=== PATIENT | male | born 2000 | race Caucasian/White ===

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

== ENCOUNTER 2019-05-30 22:46 | Emergency (ER) | payer OTHER ==
[2019-05-30 23:01] VITALS: RESP 18
[2019-05-31] MEDS ORDERED: DIPH,PERTUS(ACELL)TETVAC-LF 0.5 ML VIAL IM ONE (00:05)
--- NOTE | 2019-05-31 00:09 | ED ---
General Adult HPI - General Chief complaint: Burn/Smoke Inhalation Stated complaint: Grease Burn on hand a few days ago Time Seen by Provider: 05/30/19 23:57 Source: patient Mode of arrival: ambulatory Limitations: no limitations - History of Present Illness Initial comments: Dictation was produced using [employer] dictation software. please excuse any grammatical, word or spelling errors. Chief Complaint: 18-year-old male presents with grease burn to the left upper extremity History of Present Illness: Patient is a 18-year-old male presents with grease allen to the left upper extremity. Patient states that yesterday he was cooking pork chop when some of the oil splashed onto his left upper extremity. Patient states that today he felt like his symptoms were getting worse he is worried about an infection putting into the come to the emergency department. Patient does not know when his last tetanus was. He reports that this pain is controlled. The ROS documented in this emergency department record has been reviewed and confirmed by me. Those systems with pertinent positive or negative responses have been documented in the HPI. All other systems are other negative and/or noncontributory. PHYSICAL EXAM: General Impression: Alert and oriented x3, not in acute distress HEENT: Normocephalic atraumatic, extra-ocular movements intact, pupils equal and reactive to light bilaterally, mucous membranes moist. Cardiovascular: Heart regular rate and rhythm, S1&S2 audible, no murmurs, rubs or gallops Chest: Lungs clear to auscultation bilaterally, no rhonchi, no wheeze, no rales Abdomen: Bowel sounds present, abdomen soft, non-tender, non-distended, no organomegaly Musculoskeletal: Pulses present and equal in all extremities, no peripheral edema Motor: no focal deficits noted Neurological: CN II-XII grossly intact, no focal motor or sensory deficits noted Skin: 7-8 Small 1 x 1 cm grease allen spread out over the left lateral forearm. These allen are small first and second-degree allen. Psych: Normal affect and mood ED course: 18 Old male presents with grease allen to the forearm of the left upp er extremity. Vital signs upon arrival are within acceptable limits. Burn lesions are not circumferential. They are rather small. Injury occurred yesterday around dinnertime. Patient given motion bandage. He is told to maintain his bandage until tomorrow when he can take it off. Patient's tetanus was updated. Told to follow up with primary care physician upon discharge. - Related Data Previous Rx's Medication Instructions Recorded Naltrexone HCl [Revia] 50 mg PO 2100 30 Days #30 tab 11/30/18 buPROPion XL [Wellbutrin XL] 300 mg PO DAILY 30 Days #30 11/30/18 tab.er.24h traZODone HCL [Desyrel] 100 mg PO HS 30 Days #30 tab 11/30/18 Allergies Allergy/AdvReac Type Severity Reaction Status Date / Time No Known Allergies Allergy Verified 05/30/19 23:01 Review of Systems ROS Statement: Those systems with pertinent positive or pertinent negative responses have been documented in the HPI. ROS Other: All systems not noted in ROS Statement are negative. Past Medical History Past Medical History: No Reported History History of Any Multi-Drug Resistant Organisms: None Reported Past Surgical History: No Surgical Hx Reported Past Psychological History: Bipolar, Depression Smoking Status: Former smoker Past Alcohol Use History: None Reported Past Drug Use History: Marijuana General Exam Limitations: no limitations Course Vital Signs 05/30/19 22:58 Temperature 98.6 F Pulse Rate 72 Respiratory 18 Rate Blood Pressure 105/61 O2 Sat by Pulse 99 Oximetry Disposition Clinical Impression: Burn Disposition: HOME SELF-CARE Condition: Good Instructions (If sedation given, give patient instructions): Superficial Burn (ED) Is patient prescribed a controlled substance at d/c from ED?: No Referrals: Vincent Montaño MD [REFERRING] - 1-2 days Time of Disposition: 00:08
[2019-05-31 00:29] VITALS: BP 100/61; PULSE 70; TEMP 98.2
== END 2019-05-31 00:27 | disposition home or self-care (01) ==
LOC: EC 22:46
DX: T22.212A Burn of second degree of left forearm, initial encounter (principal); T31.0 Burns involving less than 10% of body surface; Z23 Encounter for immunization; Z87.891 Personal history of nicotine dependence; X10.2XXA Contact with fats and cooking oils, initial encounter; Y93.G3 Activity, cooking and baking
CPT/HCPCS: 90471; 90715; 99283

== ENCOUNTER 2022-06-23 20:23 | Inpatient (IN) | payer MEDICAID, OTHER ==
--- NOTE | 2022-06-23 20:33 | ED ---
Psych HPI - General Chief Complaint: Psychiatric Symptoms Stated Complaint: mental health Time Seen by Provider: 06/23/22 20:24 Source: patient, RN notes reviewed Mode of arrival: EMS - History of Present Illness Initial Comments: This is a pleasant 21-year-old male who just got out of [facility] today. Patient states while in [facility] he was diagnosed with schizophrenia. Patient apparently saw the [facility] provider. Patient also had a mental health evaluation and was prescribed Zyprexa, Zoloft, and lithium. Patient also states he takes something else for anxiety but cannot recall what it is. Patient states that he continues to hear voices, some of which are telling him to hurt himself. Patient denying any homicidality. [place] any recent illness. No other health problems. No headache, no fever or chills, no changes in vision or hearing, no sore throat or difficulty with speech, no neck pain, no chest pain or shortness of breath, no abdominal pain, no nausea or vomiting, no changes in urination or bowel movements, no numbness or tingling, no extremity pain, no skin rashes or lesions. Past medical, surgical, social, and family history reviewed. MD Complaint: suicidal ideation - Related Data Previous Rx's Medication Instructions Recorded Naltrexone HCl [Revia] 50 mg PO 2100 30 Days #30 tab 11/30/18 buPROPion XL [Wellbutrin XL] 300 mg PO DAILY 30 Days #30 11/30/18 tab.er.24h traZODone HCL [Desyrel] 100 mg PO HS 30 Days #30 tab 11/30/18 Allergies Allergy/AdvReac Type Severity Reaction Status Date / Time No Known Allergies Allergy Verified 05/30/19 23:01 Review of Systems ROS Statement: Those systems with pertinent positive or pertinent negative responses have been documented in the HPI. ROS Other: All systems not noted in ROS Statement are negative. Past Medical History Past Medical History: No Reported History History of Any Multi-Drug Resistant Organisms: None Reported Past Surgical History: No Surgical Hx Reported Past Psychological History: Bipolar, Depression Past Alcohol Use History: None Reported Past Drug Use History: Marijuana General Exam - General Exam Comments Initial Comments: Healthy-appearing 21-year-old male in no significant distress. Vital signs reviewed, patient appears to be healthy and nontoxic. Cranial nerves II through XII grossly intact. Alert and oriented 4. Limitations: no limitations General appearance: alert, in no apparent distress Head exam: Present: atraumatic, normocephalic, normal inspection Eye exam: Present: normal appearance, PERRL, EOMI. Absent: scleral icterus, conjunctival injection, periorbital swelling ENT exam: Present: normal exam, mucous membranes moist Neck exam: Present: normal inspection. Absent: tenderness, meningismus, lymphadenopathy Respiratory exam: Present: normal lung sounds bilaterally. Absent: respiratory distress, wheezes, rales, rhonchi, stridor Cardiovascular Exam: Present: regular rate, normal rhythm, normal heart sounds. Absent: systolic murmur, diastolic murmur, rubs, gallop, clicks GI/Abdominal exam: Present: soft, normal bowel sounds. Absent: distended, tenderness, guarding, rebound, rigid Extremities exam: Present: normal inspection, full ROM, normal capillary refill. Absent: tenderness, pedal edema, joint swelling, calf tenderness Back exam: Present: normal inspection Neurological exam: Present: alert, oriented X3, CN II-XII intact Psychiatric exam: Present: normal affect, normal mood Skin exam: Present: warm, dry, intact, normal color. Absent: rash Course Vital Signs 06/23/22 20:26 Temperature 98.6 F Pulse Rate 74 Respiratory 18 Rate Blood Pressure 146/90 O2 Sat by Pulse 98 Oximetry - Reevaluation(s) Reevaluation #1: 06/24/22 00:35 Medical record is reviewed Symptoms unchanged Patient is informed of results and questions answered Patient in no distress Medical Decision Making - Medical Decision Making Will initiate mental health evaluation for auditory hallucinations. Suicidal ideation. We'll obtain baseline laboratory work as well as renal function since the patient's lithium. Patient admitted for further psychiatric evaluation and treatment - Lab Data Result diagrams: 06/23/22 20:54 06/23/22 20:54 Lab Results 06/23/22 06/23/22 06/23/22 Range/Units 20:54 20:54 20:54 WBC 8.1 (3.8-10.6) k/uL RBC 4.54 (4.30-5.90) m/uL Hgb 13.2 (13.0-17.5) gm/dL Hct 38.6 L (39.0-53.0) % MCV 85.0 (80.0-100.0) fL MCH 29.2 (25.0-35.0) pg MCHC 34.3 (31.0-37.0) g/dL RDW 12.7 (11.5-15.5) % Plt Count 218 (150-450) k/uL MPV 8.7 Sodium 142 (137-145) mmol/L Potassium 4.6 (3.5-5.1) mmol/L Chloride 102 (98-107) mmol/L Carbon Dioxide 27 (22-30) mmol/L Anion Gap 13 mmol/L BUN 16 (9-20) mg/dL Creatinine 0.95 (0.66-1.25) mg/dL Est GFR (CKD-EPI)AfAm >90 (>60 ml/min/1.73 sqM) Est GFR (CKD-EPI)NonAf >90 (>60 ml/min/1.73 sqM) Glucose 100 H (74-99) mg/dL Calcium 9.4 (8.4-10.2) mg/dL Total Bilirubin 0.2 (0.2-1.3) mg/dL AST 25 (17-59) U/L ALT 25 (4-49) U/L Alkaline Phosphatase 93 (38-126) U/L Total Protein 7.1 (6.3-8.2) g/dL Albumin 4.5 (3.5-5.0) g/dL Urine Color Urine Appearance (Clear) Urine pH (5.0-8.0) Ur Specific [place] (1.001-1.035) Urine Protein (Negative) Urine Glucose (UA) (Negative) Urine Ketones (Negative) Urine Blood (Negative) Urine Nitrite (Negative) Urine Bilirubin (Negative) Urine Urobilinogen (<2.0) mg/dL Ur Leukocyte Esterase (Negative) Urine Opiates Screen Not Detected (NotDetected) Ur Oxycodone Screen Not Detected (NotDetected) Urine Methadone Screen Not Detected (NotDetected) Ur Propoxyphene Screen Not Detected (NotDetected) Ur Barbiturates Screen Not Detected (NotDetected) U Tricyclic Antidepress Not Detected (NotDetected) Ur Phencyclidine Scrn Not Detected (NotDetected) Ur Amphetamines Screen Not Detected (NotDetected) U Methamphetamines Scrn Not Detected (NotDetected) U Benzodiazepines Scrn Not Detected (NotDetected) [place] <0.2 mmol/L Urine Cocaine Screen Not Detected (NotDetected) U Marijuana (THC) Screen Not Detected (NotDetected) 06/23/22 Range/Units 20:54 WBC (3.8-10.6) k/uL RBC (4.30-5.90) m/uL Hgb (13.0-17.5) gm/dL Hct (39.0-53.0) % MCV (80.0-100.0) fL MCH (25.0-35.0) pg MCHC (31.0-37.0) g/dL RDW (11.5-15.5) % Plt Count (150-450) k/uL MPV Sodium (137-145) mmol/L Potassium (3.5-5.1) mmol/L Chloride (98-107) mmol/L Carbon Dioxide (22-30) mmol/L Anion Gap mmol/L BUN (9-20) mg/dL Creatinine (0.66-1.25) mg/dL Est GFR (CKD-EPI)AfAm (>60 ml/min/1.73 sqM) Est GFR (CKD-EPI)NonAf (>60 ml/min/1.73 sqM) Glucose (74-99) mg/dL Calcium (8.4-10.2) mg/dL Total Bilirubin (0.2-1.3) mg/dL AST (17-59) U/L ALT (4-49) U/L Alkaline Phosphatase (38-126) U/L Total Protein (6.3-8.2) g/dL Albumin (3.5-5.0) g/dL Urine Color Yellow Urine Appearance Clear (Clear) Urine pH 5.5 (5.0-8.0) Ur Specific [place] 1.022 (1.001-1.035) Urine Protein Negative (Negative) Urine Glucose (UA) Negative (Negative) Urine Ketones Negative (Negative) Urine Blood Negative (Negative) Urine Nitrite Negative (Negative) Urine Bilirubin Negative (Negative) Urine Urobilinogen <2.0 (<2.0) mg/dL Ur Leukocyte Esterase Negative (Negative) Urine Opiates Screen (NotDetected) Ur Oxycodone Screen (NotDetected) Urine Methadone Screen (NotDetected) Ur Propoxyphene Screen (NotDetected) Ur Barbiturates Screen (NotDetected) U Tricyclic Antidepress (NotDetected) Ur Phencyclidine Scrn (NotDetected) Ur Amphetamines Screen (NotDetected) U Methamphetamines Scrn (NotDetected) U Benzodiazepines Scrn (NotDetected) [place] mmol/L Urine Cocaine Screen (NotDetected) U Marijuana (THC) Screen (NotDetected) Disposition Clinical Impression: Depression, Suicidal ideation, Auditory hallucinations, Psychosis Disposition: ADMITTED IP TO THIS [facility] Condition: Stable Is patient prescribed a controlled substance at d/c from ED?: No Referrals: None,Stated [Primary Care Provider] - 1-2 days Time of Disposition: 00:36 Decision to Admit Reason: Admit from EC Decision Time: 00:36
[2022-06-23 21:10] LABS: Appearance,Urine Clear (Clear); Bilirubin,Urine Negative (Negative); Blood,Urine Negative (Negative); Color,Urine Yellow; Glucose,Urine (UA) Negative (Negative); Ketones,Urine Negative (Negative); Leukocyte Esterase,Urine Negative (Negative); Nitrite,Urine Negative (Negative); PH, Urine 5.5 (5.0-8.0); Protein,Urine Negative (Negative); Specific Gravity,Urine 1.022 (1.001-1.035); Urobilinogen,Urine <2.0 mg/dL (<2.0)
[2022-06-23 21:16] LABS: HCT 38.6 % (39.0-53.0); HGB 13.2 gm/dL (13.0-17.5); MCH 29.2 pg (25.0-35.0); MCHC 34.3 g/dL (31.0-37.0); Mean Platelet Volume 8.7; Platelet Count 218 k/uL (150-450); RBC 4.54 m/uL (4.30-5.90); RDW 12.7 % (11.5-15.5); WBC 8.1 k/uL (3.8-10.6)
[2022-06-23 21:20] LABS: ALT 25 U/L (4-49); AST 25 U/L (17-59); African American GFR (CKD) >90 (>60 ml/min/1.73 sqM); Albumin 4.5 g/dL (3.5-5.0); Alkaline Phosphatase 93 U/L (38-126); Amphetamine Screen,Urine Not Detected (NotDetected); Anion Gap 13 mmol/L; Barbiturate Screen,Urine Not Detected (NotDetected); Benzodiazepines Screen,Urine Not Detected (NotDetected); Blood Urea Nitrogen 16 mg/dL (9-20); Calcium 9.4 mg/dL (8.4-10.2); Carbon Dioxide 27 mmol/L (22-30); Chloride 102 mmol/L (98-107); Cocaine Screen,Urine Not Detected (NotDetected); Glucose 100 mg/dL (74-99); Lithium <0.2 mmol/L; Methadone Screen, Urine Not Detected (NotDetected); Non-African American GFR(CKD) >90 (>60 ml/min/1.73 sqM); Opiate Screen,Urine Not Detected (NotDetected); Oxycodone Screen, Urine Not Detected (NotDetected); Phencyclidine Screen,Urine Not Detected (NotDetected); Potassium 4.6 mmol/L (3.5-5.1); Sodium 142 mmol/L (137-145); Total Bilirubin 0.2 mg/dL (0.2-1.3); Total Protein 7.1 g/dL (6.3-8.2); Tricyclic Antidepressant,Urine Not Detected (NotDetected); Urn Cannabinoid Scrn Not Detected (NotDetected)
[2022-06-24] MEDS ORDERED: MAG HYDROX/AL HYDROX/SIMETH 30 ML CUP PO PRN (01:12)
[2022-06-24] MEDS ORDERED: HALOPERIDOL LACTATE 5 MG/ML 1 ML VIAL IM PRN (01:12)
[2022-06-24] MEDS ORDERED: MAGNESIUM HYDROXIDE 2,400 MG/10 ML CUP PO PRN (01:12)
[2022-06-24] MEDS ORDERED: haloperidoL 5 MG TAB PO PRN (01:19)
[2022-06-24] MEDS ORDERED: LORazepam 1 MG TAB PO PRN (01:20)
[2022-06-24] MEDS ORDERED: LORazepam 1 MG/0.5 ML VIAL IM PRN (01:20)
[2022-06-24 07:26] LABS: ALT 23 U/L (4-49); AST 25 U/L (17-59); Alkaline Phosphatase 76 U/L (38-126); Bilirubin, Delta 0.3 mg/dL (0.0-0.2); Bilirubin,Unconjugated 0.1 mg/dL (0.0-1.1); Total Bilirubin 0.4 mg/dL (0.2-1.3); Total Protein 6.3 g/dL (6.3-8.2)
[2022-06-24] MEDS: NICOTINE 14MG/24HR PATCH TRANSDERM SCH (09:29)
[2022-06-24] MEDS ORDERED: FLUoxetine HCL 10 MG CAP PO STA (09:47)
[2022-06-24] MEDS ORDERED: DOCUSATE 100 MG CAP PO STA (09:48)
--- NOTE | 2022-06-24 10:29 | P.HP ---
Psychiatric H&P - . H&P Date: 06/24/22 History & Physical: Allergies Allergy/AdvReac Type Severity Reaction Status Date / Time No Known Allergies Allergy Verified 06/24/22 01:59 Vital Signs Temp 97.5 F L 06/24/22 02:11 Pulse 78 06/24/22 02:11 Resp 18 06/24/22 02:11 BP 141/85 06/24/22 02:11 Pulse Ox 96 06/24/22 02:11 FiO2 Intake & Output 06/23/22 06/24/22 06/24/22 18:59 06:59 18:59 Weight 88.7 kg Laboratory Last Values WBC 8.1 k/uL (3.8-10.6) 06/23/22 20:54 RBC 4.54 m/uL (4.30-5.90) 06/23/22 20:54 Hgb 13.2 gm/dL (13.0-17.5) 06/23/22 20:54 Hct 38.6 % (39.0-53.0) L 06/23/22 20:54 MCV 85.0 fL (80.0-100.0) 06/23/22 20:54 MCH 29.2 pg (25.0-35.0) 06/23/22 20:54 MCHC 34.3 g/dL (31.0-37.0) 06/23/22 20:54 RDW 12.7 % (11.5-15.5) 06/23/22 20:54 Plt Count 218 k/uL (150-450) 06/23/22 20:54 MPV 8.7 06/23/22 20:54 Sodium 142 mmol/L (137-145) 06/23/22 20:54 Potassium 4.6 mmol/L (3.5-5.1) 06/23/22 20:54 Chloride 102 mmol/L (98-107) 06/23/22 20:54 Carbon Dioxide 27 mmol/L (22-30) 06/23/22 20:54 Anion Gap 13 mmol/L 06/23/22 20:54 BUN 16 mg/dL (9-20) 06/23/22 20:54 Creatinine 0.95 mg/dL (0.66-1.25) 06/23/22 20:54 Est GFR (CKD-EPI)AfAm >90 (>60 ml/min/1.73 sqM) 06/23/22 20:54 Est GFR (CKD-EPI)NonAf >90 (>60 ml/min/1.73 sqM) 06/23/22 20:54 Glucose 100 mg/dL (74-99) H 06/23/22 20:54 Calcium 9.4 mg/dL (8.4-10.2) 06/23/22 20:54 Total Bilirubin 0.4 mg/dL (0.2-1.3) 06/24/22 06:22 Conjugated Bilirubin 0.0 mg/dL (0.0-0.3) 06/24/22 06:22 Unconjugated Bilirubin 0.1 mg/dL (0.0-1.1) 06/24/22 06:22 Delta Bilirubin 0.3 mg/dL (0.0-0.2) H 06/24/22 06:22 AST 25 U/L (17-59) 06/24/22 06:22 ALT 23 U/L (4-49) 06/24/22 06:22 Alkaline Phosphatase 76 U/L (38-126) 06/24/22 06:22 Total Protein 6.3 g/dL (6.3-8.2) 06/24/22 06:22 Albumin 4.0 g/dL (3.5-5.0) 06/24/22 06:22 TSH 4.110 mIU/L (0.465-4.680) 06/24/22 06:22 Urine Color Yellow 06/23/22 20:54 Urine Appearance Clear (Clear) 06/23/22 20:54 Urine pH 5.5 (5.0-8.0) 06/23/22 20:54 Ur Specific [place] 1.022 (1.001-1.035) 06/23/22 20:54 Urine Protein Negative (Negative) 06/23/22 20:54 Urine Glucose (UA) Negative (Negative) 06/23/22 20:54 Urine Ketones Negative (Negative) 06/23/22 20:54 Urine Blood Negative (Negative) 06/23/22 20:54 Urine Nitrite Negative (Negative) 06/23/22 20:54 Urine Bilirubin Negative (Negative) 06/23/22 20:54 Urine Urobilinogen <2.0 mg/dL (<2.0) 06/23/22 20:54 Ur Leukocyte Esterase Negative (Negative) 06/23/22 20:54 Urine Opiates Screen Not Detected (NotDetected) 06/23/22 20:54 Ur Oxycodone Screen Not Detected (NotDetected) 06/23/22 20:54 Urine Methadone Screen Not Detected (NotDetected) 06/23/22 20:54 Ur Propoxyphene Screen Not Detected (NotDetected) 06/23/22 20:54 Ur Barbiturates Screen Not Detected (NotDetected) 06/23/22 20:54 U Tricyclic Antidepress Not Detected (NotDetected) 06/23/22 20:54 Ur Phencyclidine Scrn Not Detected (NotDetected) 06/23/22 20:54 Ur Amphetamines Screen Not Detected (NotDetected) 06/23/22 20:54 U Methamphetamines Scrn Not Detected (NotDetected) 06/23/22 20:54 U Benzodiazepines Scrn Not Detected (NotDetected) 06/23/22 20:54 [place] <0.2 mmol/L 06/23/22 20:54 Urine Cocaine Screen Not Detected (NotDetected) 06/23/22 20:54 U Marijuana (THC) Screen Not Detected (NotDetected) 06/23/22 20:54 Coronavirus (PCR) Not Detected (Not Detectd) 06/24/22 00:28 06/24/22 10:29 IDENTIFYING DATA: Patient is a single, unemployed, 21-year-old male with significant history of schizophrenia who presented to the hospital on 06/23/2022, for suicidal ideation. HPI: Patient presented to the hospital on 06/23/2022, coming into the emergency department from [facility] after being released from long-term. The patient reported that he was incarcerated for 6 months, with 3 months in [place] and 3 months here in [place] for unpaid child support. The patient initially informed this provider that he is expressing auditory hallucinations since this past May after engaging in methamphetamine and crack cocaine use. However when this provider attempted to discern more detail regarding his auditory glez ucinations, the patient then stated to this provider that "I'm not really expressing any hallucinations. I'm just saying these things in order to get the medications I need to help me." When asked what he needs help with, the patient reports that he needs help with his ongoing symptoms of suicidal ideation. He reports that he has been feeling increasingly depressed and suicidal. He reports that he attempted to choke himself with a bedsheet last month while he was incarcerated. He does report a history of 2 prior attempts at suicide. He does report that he has been feeling increasingly lonely and sad as his family is located in [place]. He reports that he is unable to join them as he is currently under probation for the next 18 months. He does endorse significant symptoms of hopelessness, poor sleep, and anhedonia. In regards to other mood symptoms, the patient is denying any history of eloisa or hypomania. He reports no increased goal-directed activity, periods of excessive energy, grandiosity, or impulsivity. He does have significant history of anger outbursts and mood swings and was previously diagnosed with intermittent explosive disorder during his last inpatient psychiatric admission back in 2019. In regards to any other psychotic symptoms, the patient is denying any auditory or visual hallucinations. He denies any paranoia or other delusions. PAST PSYCHIATRIC HISTORY: Patient states that he has intrusive diagnosed with schizophrenia. The patient recalls being previously prescribed Zyprexa, Zoloft, lithium, and during his last psychiatric admission in 2019 was on a regimen of Abilify. The patient has had 2 prior inpatient psychiatric admissions. Currently no outpatient psychiatric follow-up. He reports 2 prior attempts at suicide. PMH: Past Medical History: No Reported History History of Any Multi-Drug Resistant Organisms: None Reported Past Surgical History: No Surgical Hx Reported Past Psychological History: Bipolar, Depression Past Alcohol Use History: None Reported Past Drug Use History: Marijuana ALLERGIES: NO KNOWN DRUG ALLERGIES CHEMICAL DEPENDENCY HISTORY: The patient reports 3-4 cigarettes per day. He denies any alcohol use. He reports that he last used drugs this past January. He states that he was using marijuana, crack cocaine, and methamphetamines at least every other day. FAMILY PSYCHIATRIC/SUBSTANCE USE HISTORY: The patient reports no family psych iatric history of substance use history. SOCIAL HISTORY: Patient was born and raised in [place], [place]. He has been staying in [place], [place] for the past 7 years off and on. He reports a 10th grade education. He denies any source of income at this time. He was incarcerated for 6 months due to unpaid child support. He has one 3-year-old son who currently lives in [facility]. The patient reports that his mother is in [place]. MENTAL STATUS EXAM: General Appearance: Patient appears to be stated age is alert, directable, and attempts to cooperate. Patient appears to have slightly disheveled hygiene and grooming. Behavior: Patient is seated without any agitated behavior. Eye contact is appropriate. Psychomotor activity slightly slowed. Speech: Patient's speech is fluent and nonpressured. Mood/Affect: Patient reports their mood is depressed, affect is congruent and constricted. Suicidality/Homicidality: Patient denies any homicidal ideation however endorses suicidal ideation. Perceptions: Patient denies any visual hallucinations and denies any auditory hallucinations Though content/process: There is no evidence of any delusional thought content and thought process is linear and goal-directed. Memory and concentration: AOX3, grossly intact for the purposes of this session. Can spell "WORLD" backwards Judgment and insight: Poor STRENGTHS/WEAKNESSES: Strength is that the patient is future oriented. Weakness is that the patient has a significant history of heavy substance abuse. INTELLECT: average IMPRESSIONS: Major depressive disorder, recurrent, severe - rule out with psychotic features Generalized anxiety disorder Stimulant use disorder, in partial remission Tobacco use disorder PLAN: -Patient is admitted under voluntary status to [facility]HU for stabilization of psychiatric symptoms and safety. Patient signed adult voluntary form and medication consent and is placed in patient's chart. -Medications : Will start patient on Prozac 30 mg by mouth daily for depression/anxiety Trazodone 100 mg by mouth at bedtime for insomnia/depression -Ativan and Haldol PRN for agitation/aggression -Patient was counselled on substance abuse and desired to cut back on use -Patient was informed of the risks, benefits and side effects of the medication and patient verbally consented to taking the medications. Patient signed med consent form and was placed in chart. -Internal Medicine consult to perform medical evaluation and physical. -NRT - nicotine patch -SW on board for discharge planning. Encourage patient to participate in groups to work on coping skills. 06/24/22 10:29
[2022-06-24 10:48] LABS: Chol/HDL Ratio 3.07 Ratio; LDL Cholesterol,Calculated 78.4 mg/dL (0.0-131.0); VLDL Calculation 16.68 mg/dL (5.00-40.00)
[2022-06-24] MEDS: LORazepam 1 MG TAB PO PRN (17:28)
[2022-06-24] MEDS ORDERED: traZODone HCL 100 MG TAB PO SCH (21:00)
[2022-06-24] MEDS ORDERED: BENZOCAINE 20 % GEL 11.9 GM TUBE MM ONE (22:24)
[2022-06-25] MEDS: ACETAMINOPHEN TAB 325 MG TAB PO PRN ×3 (00:38→17:23)
[2022-06-25] MEDS: LORazepam 1 MG TAB PO PRN ×2 (00:38→17:21)
--- NOTE | 2022-06-25 01:38 | P.MDCNMH ---
History of Present Illness H&P Date: 06/24/22 Chief Complaint: medical evaluation 21 year old male with schizophrenia patient was just released from care home yesterday , and currently staying at a [facility], he is coming in for evaluation due to hearing voices telling him to harm himself. he denies any medical concerns , denies any fever, chills, nausea , comiting, abd pain , chest pain or trouble breathing , denies any focal neuro deficits. blood work unremarkable admits to tobacco smoking, denies illicit drugs or heavy alcohol consumption Review of Systems Pertinent positives as noted in HPI. All other systems were reviewed and are negative Past Medical History Past Medical History: No Reported History History of Any Multi-Drug Resistant Organisms: None Reported Past Surgical History: No Surgical Hx Reported Past Psychological History: Bipolar, Depression Smoking Status: Current some day smoker Past Alcohol Use History: None Reported Past Drug Use History: Marijuana - Past Family History family Additional Family Medical History / Comment(s): no reported cancer or heart disease Medications and Allergies Home Medications Medication Instructions Recorded Confirmed Type Naltrexone HCl [Revia] 50 mg PO 2100 30 Days #30 tab 11/30/18 Rx buPROPion XL [Wellbutrin XL] 300 mg PO DAILY 30 Days #30 11/30/18 Rx tab.er.24h traZODone HCL [Desyrel] 100 mg PO HS 30 Days #30 tab 11/30/18 Rx Allergies Allergy/AdvReac Type Severity Reaction Status Date / Time No Known Allergies Allergy Verified 06/24/22 01:59 Physical Exam Vitals: Vital Signs Temp Pulse Resp BP Pulse Ox 06/24/22 02:11 97.5 F L 78 18 141/85 96 Constitutional: No acute distress Eyes: Anicteric sclerae, moist conjunctiva, Pupils equal round reactive to light ENMT: NC/AT Oropharynx clear, no erythema, or exudates Neck: Supple, no masses, or JVD No carotid bruits No thyromegaly Lungs: Clear to auscultation Clear to percussion Normal respiratory effort, no accessory muscle use Cardiovascular: Heart regular in rate and rhythm, No murmurs, gallops, or rubs No peripheral edema Abdominal: Soft Nontender, no guarding, rebound or rigidity Abdomen moving with respiration Normoactive bowel sounds No hepatomegaly, No splenomegaly No palpable mass No abdominal wall hernia noted Skin: Normal temperature, tone, texture, turgor No induration No subcutaneous nodules No rash, lesions No ulcers Extremities: No digital cyanosis No clubbing Pedal pulses intact and symmetrical Radial pulses intact and symmetrical No calf tenderness Psychiatric: Alert and oriented to person, place and time Neuro Muscles Strength 5/5 in all 4 extremities Sensation to light touch grossly present throughout Cranial nerves II-XII grossly intact Lymphatics: no palpable cervical or supraclavicular lymph nodes Cranial Nerve Examination - Cranial Nerves Cranial Nerve II- Optic: Intact Cranial Nerve III- Oculomotor: Intact Cranial Nerve IV- Trochlear: Intact Cranial Nerve V- Trigeminal: Intact Cranial Nerve - Abducens: Intact Cranial Nerve VII- Facial: Intact Cranial Nerve VIII- Auditory: Intact Cranial Nerve IX- Glossopharyngeal: Intact Cranial Nerve X- Vagus: Intact Cranial Nerve XI- Accessory: Intact Cranial Nerve XII- Hypoglossal: Intact Results CBC & Chem 7: 06/23/22 20:54 06/23/22 20:54 Labs: Abnormal Lab Results - Last 24 Hours (Table) 06/24/22 Range/Units 06:22 Delta Bilirubin 0.3 H (0.0-0.2) mg/dL Assessment and Plan Assessment: schizophrenia suicidal ideation management per psych tobacco smoking daily nicotine replacement therapy counseled to quit smoking labs reviewed unremarkable Thank you for allowing us to participate in the care of this patient. We will follow peripherally. Do not hesitate to contact us with questions. Someone can be reached from the [facility] hospitalist group at all hours of the day at [phone].
[2022-06-25] MEDS: NICOTINE 14MG/24HR PATCH TRANSDERM SCH (08:16)
[2022-06-25] MEDS ORDERED: FLUoxetine HCL 10 MG CAP PO SCH (09:00)
--- NOTE | 2022-06-25 11:30 | P.PN ---
Progress Note - Text Progress Note Date: 06/25/22 Interval History: Patient was seen wandering the hallways and was directable and agreeable to speak with technical publications writer in the office. Currently, the patient is reporting that he is feeling better. He is currently denying any suicidal or homicidal ideation, intent reporting any auditory or visual hallucinations. He denies any paranoia or other delusions. The patient reports that he is looking forward to continuing his care and that he plans to return back to the [facility] upon discharge. He expresses no side effects of his medications and has been tolerating them well. The patient's only primary concern at this time is his sleep. He reports that he has poor sleep at night. However, the patient has been noted to have slept for 6 hours by staff. Mental Status Exam: General Appearance: Patient appears to be stated age is alert, directable, and cooperative. Behavior: Patient is calmly seated without any agitated behavior. Speech: Patient's speech is fluent and nonpressured. Mood/Affect: Mood is improving mildly, affect is congruent and constricted. Suicidality/Homicidality: Patient denies having any suicidal or homicidal ideation intent or plan. Perceptions: Patient denies any visual hallucinations and denies any auditory hallucinations Though content/process: There is no evidence of any delusional thought content and thought process is linear and goal-directed. Memory and concentration: AOX3, grossly intact for the purposes of this session Judgment and insight: Improving mildly Vital Signs Temp 97 F L 06/25/22 06:45 Pulse 79 06/25/22 06:45 Resp 14 06/25/22 06:45 BP 104/58 06/25/22 06:45 Pulse Ox 96 06/24/22 02:11 FiO2 Assessment Major depressive disorder, recurrent, severe - rule out with psychotic features Generalized anxiety disorder Stimulant use disorder, in partial remission Tobacco use disorder Plan: -Patient continues to meet criteria for inpatient psychiatric admission for symptom stabilization and safety. Patient has signed adult voluntary form and medication consent and was placed in patient's chart. -Medications: Increase Prozac to 40 mg by mouth daily for depression/anxiety Increase trazodone to 150 mg by mouth at bedtime for insomnia/depression -When necessary Ativan and Haldol for agitation/aggression. -NRT - nicotine patch -SW on board for discharge planning. Encouraged the patient to participate in milieu.
[2022-06-25] MEDS: traZODone HCL 50 MG TAB PO SCH (20:03)
[2022-06-25] MEDS: NICOTINE GUM (POLACRILEX) 2 MG GUM BUCCAL PRN (22:43)
[2022-06-26] MEDS: NICOTINE GUM (POLACRILEX) 2 MG GUM BUCCAL PRN ×3 (02:39→13:26)
[2022-06-26] MEDS: LORazepam 1 MG TAB PO PRN (02:42)
[2022-06-26 06:52] VITALS: RESP 16
[2022-06-26] MEDS: FLUoxetine HCL 20 MG CAP PO SCH (08:40)
[2022-06-26] MEDS: NICOTINE 14MG/24HR PATCH TRANSDERM SCH (09:42)
--- NOTE | 2022-06-26 12:43 | P.PN ---
Progress Note - Text Progress Note Date: 06/26/22 Interval History: Patient was seen wandering the hallways and was directable and agreeable to speak with hand sign writer in his room. Currently, the patient is not reporting any suicidal or homicidal ideation, intention, and/or plan. He is not reporting any auditory or visual hallucinations. He denies any paranoia or delusions. The patient has been in adherent with his medication is not reporting any significant side effects at this time. The patient is anticipated for discharge tomorrow and understands this. He reports no issues regarding his sleep or his appetite. Mental Status Exam: General Appearance: Patient appears to be stated age is alert, directable, and cooperative. Behavior: Patient is calmly seated without any agitated behavior. Speech: Patient's speech is fluent and nonpressured. Mood/Affect: Mood is improving mildly, affect is congruent and constricted. Suicidality/Homicidality: Patient denies having any suicidal or homicidal ideation intent or plan. Perceptions: Patient denies any visual hallucinations and denies any auditory hallucinations Though content/process: There is no evidence of any delusional thought content and thought process is linear and goal-directed. Memory and concentration: AOX3, grossly intact for the purposes of this session Judgment and insight: Improving mildly Vital Signs Temp 98 F 06/26/22 00:40 Pulse 102 H 06/26/22 00:40 Resp 16 06/26/22 00:40 BP 195/73 06/26/22 00:40 Pulse Ox 96 06/24/22 02:11 FiO2 Assessment Major depressive disorder, recurrent, severe - rule out with psychotic features Generalized anxiety disorder Stimulant use disorder, in partial remission Tobacco use disorder Plan: -Patient continues to meet criteria for inpatient psychiatric admission for symptom stabilization and safety. Patient has signed adult voluntary form and medication consent and was placed in patient's chart. -Medications: Continue Prozac 40 mg by mouth daily for depression/anxiety Continue trazodone 150 mg by mouth at bedtime for insomnia/depression -When necessary Ativan and Haldol for agitation/aggression. -NRT - nicotine patch -SW on board for discharge planning. Encouraged the patient to participate in milieu.
[2022-06-26] MEDS: traZODone HCL 50 MG TAB PO SCH (20:20)
[2022-06-27 07:12] VITALS: BP 135/80; PULSE 84; TEMP 98.4
[2022-06-27] MEDS: NICOTINE 14MG/24HR PATCH TRANSDERM SCH (08:41)
[2022-06-27] MEDS: FLUoxetine HCL 20 MG CAP PO SCH (08:42)
[2022-06-27] MEDS: NICOTINE GUM (POLACRILEX) 2 MG GUM BUCCAL PRN (08:43)
--- NOTE | 2022-06-27 11:49 | P.DS ---
Providers Date of admission: 06/24/22 00:54 Expected date of discharge: 06/27/22 Attending physician: Ryan Anthony MD Consults: 06/24/22 01:12 Consult Physician Routine Consulting Provider: Lara Bautista Consult Reason/Comments: History and physical and medical management Do you want consulting provider notified?: Yes Primary care physician: Stated None - Discharge Diagnosis(es) (1) Major depressive disorder, recurrent severe without psychotic features Current Visit: Yes Status: Acute Priority: High (2) FRANCIA (generalized anxiety disorder) Current Visit: Yes Status: Chronic Priority: Medium (3) Tobacco use disorder Current Visit: Yes Status: Chronic Priority: Medium Hospital Course: Admission HPI: Patient is a single, unemployed, 21-year-old male with significant history of schizophrenia who presented to the hospital on 06/23/2022, for suicidal ideation. Patient presented to the hospital on 06/23/2022, coming into the emergency department from [facility] after being released from retirement. The patient reported that he was incarcerated for 6 months, with 3 months in [place] and 3 months here in [place] for unpaid child support. The patient initially informed this provider that he is expressing auditory hallucinations since this past January after engaging in methamphetamine and crack cocaine use. However when this provider attempted to discern more detail regarding his auditory hallucinations, the patient then stated to this provider that "I'm not really expressing any hallucinations. I'm just saying these things in order to get the medications I need to help me." When asked what he needs help with, the patient reports that he needs help with his ongoing symptoms of suicidal ideation. He reports that he has been feeling increasingly depressed and suicidal. He reports that he attempted to choke himself with a bedsheet last month while he was incarcerated. He does report a history of 2 prior attempts at suicide. He does report that he has been feeling increasingly lonely and sad as his family is located in [place]. He reports that he is unable to join them as he is currently under probation for the next 18 months. He does endorse significant symptoms of hopelessness, poor sleep, and anhedonia. In regards to other mood symptoms, the patient is denying any history of eloisa or hypomania. He reports no increased goal-directed activity, periods of excessive energy, grandiosity, or impulsivity. He does have significant history of anger outbursts and mood swings and was previously diagnosed with intermittent explosive disorder during his last inpatient psychiatric admission back in 2019. In regards to any other psychotic symptoms, the patient is denying any auditory or visual hallucinations. He denies any paranoia or other delusions. Patient states that he has intrusive diagnosed with schizophrenia. The patient recalls being previously prescribed Zyprexa, Zoloft, lithium, and during his last psychiatric admission in 2019 was on a regimen of Abilify. The patient has had 2 prior inpatient psychiatric admissions. Currently no outpatient psychiatric follow-up. He reports 2 prior attempts at suicide. Hospital course: Upon admission to the unit patient was initially presenting as constricted, disheveled, and endorsing depression and suicidal ideation. Patient was however directable and agreeable to commence treatment. Patient got along well with other patients on the unit and followed unit protocol. Patient was compliant with the medications and denied any side effects throughout hospital course. Patient was started on a regimen of Prozac and trazodone for management of depression/anxiety/insomnia. Patient spoke of his stressors and engaged in therapy both group and individual. Patient was also seen by medical team for history and physical exam. Over the course of the hospitalization, the patient displayed significant improvement regards to his target symptoms of depression, anxiety, and sleep. He became more future and goal oriented. He developed better insight and judgment. On the day of discharge, the patient is not reporting any suicidal or homicidal ideation, intention, and/or plan. He is not reporting any auditory or visual hallucinations. He denies any paranoia or other delusions. He denies any access to firearms or other weapons. The patient is a resident of [facility] and will be returning there. He is future and goal oriented. He was counseled at length and points medication adherence and appropriate outpatient follow-up. The patient does have significant history substance abuse however was counseled on abstaining from all substances including alcohol, tobacco, marijuana, and crack cocaine. The patient reports that he is currently under probation and will continue to abstain from all illicit substances. As patient no longer met criteria for continued inpatient psychiatric hospitalization, he was subsequently discharged. Mental status exam: General Appearance: Patient appears to be stated age is alert, pleasant, and cooperative. Patient is in no acute distress and has fair hygiene and grooming Behavior: Patient is calmly seated without any agitated behavior. Speech: Patient's speech is fluent and nonpressured. Mood/Affect: Patient reports their mood is "much better", affect is congruent and euthymic to bright. Suicidality/Homicidality: Patient denies having any suicidal or homicidal ideation intent or plan. Perceptions: Patient denies any auditory or visual hallucinations. Though content/process: There is no evidence of any delusional thought content and thought process is linear and goal-directed. Future oriented Memory and concentration: AOX3, grossly intact for the purposes of this session. Can spell "WORLD" backwards correctly. Judgment and insight: Improved with guarded prognosis Impression: Major depressive disorder, recurrent, severe Generalized anxiety disorder Stimulant use disorder, in partial remission Tobacco use disorder Plan: -Continue with discharge today as patient has improved and stabilized psychiatrically and is not currently an imminent threat to himself and/or others. Patient will remain at chronically elevated risk for suicide due to his history of substance abuse and prior attempts at suicide. -Continue medications: Trazodone 150 mg by mouth at bedtime for depression/insomnia Prozac 40 mg by mouth daily for depression/anxiety -Patient was counseled on the need for medication compliance and appropriate follow-up at mental health and also primary care for medical issues. Patient verbalized understanding and agreed. -Social work to arrange for and conduct family meeting to ensure safety upon discharge and answer any questions/concerns. Social work also to arrange for patients follow up appointments with [facility] for psychiatric care along with follow up with primary care provider. -Patient counseled on abstaining from recreational drugs and marijuana and alcohol. Was informed/educated on the adverse effects on their physical and mental health. Patient verbally agreed and understood]. -Patient was instructed to return to the hospital or seek immediate medical care if their psychiatric or medical symptoms do worsen or reoccur. -Psychoeducation and supportive therapy provided to patient. Risks and benefits of pharmacological treatment versus the risks and benefits of nontreatment weight and discussed. Informed consent discussion held. Common side effects of psychotropics discussed such as, but not limited to headache, GI disturbance, sexual dysfunction, movement disorders, sedation, and orthostatic hypotension. Life threatening and blackbox warnings of prescribed medications also discussed. Potential risks of operating a vehicle or heavy machinery discussed with patient at length. Advised on importance of compliance and a reliable and responsible manner. Patient advised to review FDA consumer labeling of all medications prior to taking. Patient verbalized understanding of potential risks, and agrees with current treatment plan. Patient advised to medically contact physician/emergency personnel if any acute changes in condition occur. Vital Signs Temp 98.4 F 06/27/22 06:41 Pulse 84 06/27/22 06:41 Resp 16 06/27/22 06:41 BP 135/80 06/27/22 06:41 Pulse Ox 96 06/24/22 02:11 FiO2 Laboratory Results WBC 8.1 k/uL (3.8-10.6) 06/23/22 20:54 RBC 4.54 m/uL (4.30-5.90) 06/23/22 20:54 Hgb 13.2 gm/dL (13.0-17.5) 06/23/22 20:54 Hct 38.6 % (39.0-53.0) L 06/23/22 20:54 MCV 85.0 fL (80.0-100.0) 06/23/22 20:54 MCH 29.2 pg (25.0-35.0) 06/23/22 20:54 MCHC 34.3 g/dL (31.0-37.0) 06/23/22 20:54 RDW 12.7 % (11.5-15.5) 06/23/22 20:54 Plt Count 218 k/uL (150-450) 06/23/22 20:54 MPV 8.7 06/23/22 20:54 Sodium 142 mmol/L (137-145) 06/23/22 20:54 Potassium 4.6 mmol/L (3.5-5.1) 06/23/22 20:54 Chloride 102 mmol/L (98-107) 06/23/22 20:54 Carbon Dioxide 27 mmol/L (22-30) 06/23/22 20:54 Anion Gap 13 mmol/L 06/23/22 20:54 BUN 16 mg/dL (9-20) 06/23/22 20:54 Creatinine 0.95 mg/dL (0.66-1.25) 06/23/22 20:54 Est GFR (CKD-EPI)AfAm >90 (>60 ml/min/1.73 sqM) 06/23/22 20:54 Est GFR (CKD-EPI)NonAf >90 (>60 ml/min/1.73 sqM) 06/23/22 20:54 Glucose 100 mg/dL (74-99) H 06/23/22 20:[address] Glu mg/dL 97 06/24/22 06:22 Hemoglobin A1c 5.0 % (0.0-6.0) 06/24/22 06:22 Calcium 9.4 mg/dL (8.4-10.2) 06/23/22 20:54 Total Bilirubin 0.4 mg/dL (0.2-1.3) 06/24/22 06:22 Conjugated Bilirubin 0.0 mg/dL (0.0-0.3) 06/24/22: Unconjugated Bilirubin 0.1 mg/dL (0.0-1.1) 06/24/22 06:22 Delta Bilirubin 0.3 mg/dL (0.0-0.2) H 06/24/22 06:22 AST 25 U/L (17-59) 06/24/22:22 ALT 23 U/L (4-49) 06/24/22 06:22 Alkaline Phosphatase 76 U/L (38-126) 06/24/22 06:22 Total Protein 6.3 g/dL (6.3-8.2) 06/24/22:22 Albumin 4.0 g/dL (3.5-5.0) 06/24/22 06:22 Triglycerides 83.40 mg/dL (0.00-149.00) 06/24/22 06:22 Cholesterol 141.00 mg/dL (0.00-200.00) 06/24/22:22 LDL Cholesterol, Calc 78.4 mg/dL (0.0-131.0) 06/24/22:22 VLDL Cholesterol, Calc 16.68 mg/dL (5.00-40.00) 06/24/22:22 HDL Cholesterol 45.90 mg/dL (40.00-60.00) 06/24/22:22 Cholesterol/HDL Ratio 3.07 Ratio 06/24/22 06:22 TSH 4.110 mIU/L (0.465-4.680) 06/24/22 06:22 Urine Color Yellow 06/23/22 20:54 Urine Appearance Clear (Clear) 06/23/22 20:54 Urine pH 5.5 (5.0-8.0) 06/23/22 20:54 Ur Specific [place] 1.022 (1.001-1.035) 06/23/22 20:54 Urine Protein Negative (Negative) 06/23/22 20:54 Urine Glucose (UA) Negative (Negative) 06/23/22 20:54 Urine Ketones Negative (Negative) 06/23/22 20:54 Urine Blood Negative (Negative) 06/23/22 20:54 Urine Nitrite Negative (Negative) 06/23/22 20:54 Urine Bilirubin Negative (Negative) 06/23/22 20:54 Urine Urobilinogen <2.0 mg/dL (<2.0) 06/23/22 20:54 Ur Leukocyte Esterase Negative (Negative) 06/23/22 20:54 Urine Opiates Screen Not Detected (NotDetected) 06/23/22 20:54 Ur Oxycodone Screen Not Detected (NotDetected) 06/23/22 20:54 Urine Methadone Screen Not Detected (NotDetected) 06/23/22 20:54 Ur Propoxyphene Screen Not Detected (NotDetected) 06/23/22 20:54 Ur Barbiturates Screen Not Detected (NotDetected) 06/23/22 20:54 U Tricyclic Antidepress Not Detected (NotDetected) 06/23/22 20:54 Ur Phencyclidine Scrn Not Detected (NotDetected) 06/23/22 20:54 Ur Amphetamines Screen Not Detected (NotDetected) 06/23/22 20:54 U Methamphetamines Scrn Not Detected (NotDetected) 06/23/22 20:54 U Benzodiazepines Scrn Not Detected (NotDetected) 06/23/22 20:54 [place] <0.2 mmol/L 06/23/22 20:54 Urine Cocaine Screen Not Detected (NotDetected) 06/23/22 20:54 U Marijuana (THC) Screen Not Detected (NotDetected) 06/23/22 20:54 Coronavirus (PCR) Not Detected (Not Detectd) 06/24/22 00:28 Allergies Allergy/AdvReac Type Severity Reaction Status Date / Time No Known Allergies Allergy Verified 06/24/22 01:59 Patient Condition at Discharge: Stable Plan - Discharge Summary Discharge Rx Participant: Yes New Discharge Prescriptions: New traZODone HCL [Desyrel] 150 mg PO HS 30 Days tab FLUoxetine HCL [PROzac] 40 mg PO DAILY 30 Days cap Discontinued Naltrexone HCl [Revia] 50 mg PO 2100 30 Days #30 tab buPROPion XL [Wellbutrin XL] 300 mg PO DAILY 30 Days #30 tab.er.24h traZODone HCL [Desyrel] 100 mg PO HS 30 Days #30 tab Discharge Medication List FLUoxetine HCL [PROzac] 40 mg PO DAILY 30 Days cap 06/27/22 [Rx] traZODone HCL [Desyrel] 150 mg PO HS 30 Days tab 06/27/22 [Rx] Follow up Appointment(s)/Referral(s): 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 Take all prescriptions as prescribed. When you are in need of refills on your medications, please contact your medical provider and/or outpatient psychiatrist to have this done. Please go to scheduled outpatient appointment for aftercare treatment. If symptoms return or become worse, call the crisis line at and/or go to the nearest emergency room for evaluation. Discharge Disposition: HOME SELF-CARE
== END 2022-06-27 14:07 | disposition home or self-care (01) | DRG 885 ==
LOC: EC 20:23 → 3MHU 06-24 00:54
PROVIDERS: ADMIT Psychiatry & Neurology Psychiatry; ATTEND Psychiatry & Neurology Psychiatry
DX: F33.2 Major depressive disorder, recurrent severe without psychotic features (principal); R45.851 Suicidal ideations; F20.9 Schizophrenia, unspecified; F15.10 Other stimulant abuse, uncomplicated; F14.10 Cocaine abuse, uncomplicated; Z20.822 Contact with and (suspected) exposure to COVID-19; F12.10 Cannabis abuse, uncomplicated; F41.1 Generalized anxiety disorder; G47.00 Insomnia, unspecified; F17.210 Nicotine dependence, cigarettes, uncomplicated; Z71.6 Tobacco abuse counseling; Z79.899 Other long term (current) drug therapy; Z91.51 Personal history of suicidal behavior; Z56.0 Unemployment, unspecified
CPT/HCPCS: 36415; 80053; 80061; 80076; 80178; 80306; 81003; 82075; 83036; 84443; 85027; 87635; 99285

== ENCOUNTER 2022-07-01 18:48 | Emergency (ER) | payer OTHER ==
[2022-07-01] MEDS ORDERED: AMOXIC-POT CLAV 875-125MG 1 EACH TAB PO STA (21:05)
[2022-07-01 21:47] LABS: Appearance,Urine Clear (Clear); Bilirubin,Urine Negative (Negative); Blood,Urine Negative (Negative); Color,Urine Yellow; Glucose,Urine (UA) Negative (Negative); Ketones,Urine Negative (Negative); Leukocyte Esterase,Urine Negative (Negative); Nitrite,Urine Negative (Negative); PH, Urine 5.5 (5.0-8.0); Protein,Urine Negative (Negative); Specific Gravity,Urine 1.022 (1.001-1.035); Urobilinogen,Urine <2.0 mg/dL (<2.0)
[2022-07-01 21:55] LABS: Amphetamine Screen,Urine Not Detected (NotDetected); Barbiturate Screen,Urine Not Detected (NotDetected); Benzodiazepines Screen,Urine Not Detected (NotDetected); Cocaine Screen,Urine Not Detected (NotDetected); Methadone Screen, Urine Not Detected (NotDetected); Opiate Screen,Urine Not Detected (NotDetected); Oxycodone Screen, Urine Not Detected (NotDetected); Phencyclidine Screen,Urine Not Detected (NotDetected); Tricyclic Antidepressant,Urine Not Detected (NotDetected); Urn Cannabinoid Scrn Not Detected (NotDetected)
--- NOTE | 2022-07-01 23:42 | ED ---
Psych HPI - General Chief Complaint: Psychiatric Symptoms Stated Complaint: EPS eval, med refill Time Seen by Provider: 07/01/22 20:40 Source: patient Mode of arrival: ambulatory - History of Present Illness Initial Comments: Patient is a 21-year-old male presenting with chief complaint of suicidal ideation. Patient states he started having suicidal thoughts a few hours ago. Patient has had suicidal thoughts in the past. He has no plan. He has no homicidal thoughts. No visual or auditory hallucinations. He is complaining of some mild tooth pain that started a few days ago, located on the right lower side. He has known dental caries in that area. He denies chest pain, difficulty breathing or swallowing, fever, chills, neck pain or stiffness, vision or hearing changes, dizziness, abdominal pain, nausea, vomiting, dysuria, hematuria, hematochezia, melena. - Related Data Previous Rx's Medication Instructions Recorded FLUoxetine HCL [PROzac] 40 mg PO DAILY 30 Days cap 06/27/22 traZODone HCL [Desyrel] 150 mg PO HS 30 Days tab 06/27/22 Amoxic-Pot Clav 875-125Mg 1 tab PO Q12HR 7 Days #14 tab 07/01/22 [Augmentin 875-125] Allergies Allergy/AdvReac Type Severity Reaction Status Date / Time No Known Allergies Allergy Verified 06/24/22 01:59 Review of Systems ROS Statement: Those systems with pertinent positive or pertinent negative responses have been documented in the HPI. ROS Other: All systems not noted in ROS Statement are negative. Past Medical History Past Medical History: No Reported History History of Any Multi-Drug Resistant Organisms: None Reported Past Surgical History: No Surgical Hx Reported Past Psychological History: Bipolar, Depression Smoking Status: Current some day smoker Past Alcohol Use History: None Reported Past Drug Use History: Marijuana - Past Family History family Additional Family Medical History / Comment(s): no reported cancer or heart disease General Exam Limitations: no limitations General appearance: alert, in no apparent distress Head exam: Present: atraumatic, normocephalic, normal inspection Eye exam: Present: normal appearance, PERRL, EOMI. Absent: scleral icterus, conjunctival injection, periorbital swelling Neck exam: Present: normal inspection Respiratory exam: Present: normal lung sounds bilaterally. Absent: respiratory distress, wheezes, rales, rhonchi, stridor Cardiovascular Exam: Present: regular rate, normal rhythm, normal heart sounds. Absent: systolic murmur, diastolic murmur, rubs, gallop, clicks Neurological exam: Present: alert, oriented X3, CN II-XII intact Psychiatric exam: Present: normal affect, normal mood Skin exam: Present: warm, dry, intact, normal color. Absent: rash Course Vital Signs 07/01/22 07/02/22 19:54 00:28 Temperature 98 F 98.2 F Pulse Rate 82 71 Respiratory 20 18 Rate Blood Pressure 138/82 133/83 O2 Sat by Pulse 99 97 Oximetry Medical Decision Making - Medical Decision Making Patient is a 21-year-old male presenting with chief complaint of suicidal ideation. Symptoms started today. No suicidal plan or homicidal ideation. No visual or auditory hallucinations. Patient was evaluated by EPS after being medically cleared. They developed safety plan and plans for follow-up with mobile crisis unit tomorrow morning. Patient is confident of this plan. Patient was also complaining of some mild dental pain located on the right lower side, he has no dental caries in this area. Patient will be treated with Augmentin 875 twice a day for 7 days. Follow-up with PCP. Report back to ER with any new or worsening symptoms. Discussed return parameters and answered all questions. Patient conveyed verbal understanding and agreed to the plan. I discussed this case in detail with my attending Dr. Sutton - Lab Data Lab Results 07/01/22 Range/Units 20:46 Urine Color Yellow Urine Appearance Clear (Clear) Urine pH 5.5 (5.0-8.0) Ur Specific [place] 1.022 (1.001-1.035) Urine Protein Negative (Negative) Urine Glucose (UA) Negative (Negative) Urine Ketones Negative (Negative) Urine Blood Negative (Negative) Urine Nitrite Negative (Negative) Urine Bilirubin Negative (Negative) Urine Urobilinogen <2.0 (<2.0) mg/dL Ur Leukocyte Esterase Negative (Negative) Urine Opiates Screen Not Detected (NotDetected) Ur Oxycodone Screen Not Detected (NotDetected) Urine Methadone Screen Not Detected (NotDetected) Ur Propoxyphene Screen Not Detected (NotDetected) Ur Barbiturates Screen Not Detected (NotDetected) U Tricyclic Antidepress Not Detected (NotDetected) Ur Phencyclidine Scrn Not Detected (NotDetected) Ur Amphetamines Screen Not Detected (NotDetected) U Methamphetamines Scrn Not Detected (NotDetected) U Benzodiazepines Scrn Not Detected (NotDetected) Urine Cocaine Screen Not Detected (NotDetected) U Marijuana (THC) Screen Not Detected (NotDetected) Disposition Clinical Impression: Acute anxiety, Pain, dental Disposition: HOME SELF-CARE Condition: Good Instructions (If sedation given, give patient instructions): Generalized Anxiety Disorder (ED), Anxiety (ED), Anxiolysis in Adults (ED) Additional Instructions: Follow-up with mobile crisis unit and PCP. Report back to ER with any new or worsening symptoms. Prescriptions: Amoxic-Pot Clav 875-125Mg [Augmentin 875-125] 1 tab PO Q12HR 7 Days #14 tab Is patient prescribed a controlled substance at d/c from ED?: No Referrals: None,Stated [Primary Care Provider] - 1-2 days Time of Disposition: 23:41
[2022-07-02 00:29] VITALS: BP 133/83; PULSE 71; RESP 18; TEMP 98.2
== END 2022-07-02 00:29 | disposition home or self-care (01) ==
LOC: EC 18:48
DX: F41.9 Anxiety disorder, unspecified (principal); K08.89 Other specified disorders of teeth and supporting structures; F31.9 Bipolar disorder, unspecified; F17.200 Nicotine dependence, unspecified, uncomplicated; F12.90 Cannabis use, unspecified, uncomplicated; Z79.899 Other long term (current) drug therapy
CPT/HCPCS: 80306; 81003; 82075; 99284

== ENCOUNTER 2022-08-15 13:50 | Inpatient (IN) | payer MEDICAID, OTHER ==
--- NOTE | 2022-08-15 15:49 | ED ---
General Adult HPI - General Chief complaint: Psychiatric Symptoms Stated complaint: Suicidal Time Seen by Provider: 08/15/22 15:18 Source: patient, RN notes reviewed, old records reviewed Mode of arrival: ambulatory Limitations: no limitations - History of Present Illness Initial comments: Patient is a 22-year-old male who presents emergency department for psychiatric evaluation. He has a history of suicidal ideations as well as attempts with overdose multiple years ago. States he has no current attempts with does endorse worsening suicidal ideations in the last few days. It is near the anniversary of family members deaths. He attributes his current feelings towards this. Denies any current attempts or plans. Denies any homicidal ideations, attempts, plans. Denies any visual or auditory hallucinations. Patient's only acute complaints otherwise at this time are some nonproductive cough, nasal congestion. Believes he has a cold. Denies any sick contacts. Denies any fevers. States he did use meth yesterday but denies any drug or alcohol use otherwise. His no other acute complaints including denying chest pain, shortness breath, abdominal pain, nausea, vomiting, diarrhea. Presents for further evaluation at this time. States he does not have a therapist or psychiatrist that he follows up with outpatient. Is not on any medications. - Related Data Previous Rx's Medication Instructions Recorded traZODone HCL [Desyrel] 150 mg PO HS 30 Days tab 06/27/22 Allergies Allergy/AdvReac Type Severity Reaction Status Date / Time nickel Allergy Rash/Hives Verified 08/15/22 15:55 Review of Systems ROS Statement: Those systems with pertinent positive or pertinent negative responses have been documented in the HPI. Review of Systems: CONST: Denies fever EYES: Denies blurry vision ENT: Endorses nasal congestion C/V: Denies Chest pain RESP: Denies shortness of breath GI: Denies abdominal pain : Denies dysuria SKIN: Denies rash. MSK: Denies joint pain. NEURO: Denies headache PSYCH: Denies homicidal ideations/plans/attempts. Denies visual or auditory hallucinations. He endorses suicidal ideation. Denies attempt or plan. ROS Other: All systems not noted in ROS Statement are negative. Past Medical History Past Medical History: No Reported History History of Any Multi-Drug Resistant Organisms: None Reported Past Surgical History: No Surgical Hx Reported Past Psychological History: Bipolar, Depression Smoking Status: Current some day smoker Past Alcohol Use History: None Reported Past Drug Use History: Marijuana - Past Family History family Additional Family Medical History / Comment(s): no reported cancer or heart disease General Exam - General Exam Comments Initial Comments: General: Appears in no acute distress. HEAD: Normal with no signs of head trauma. EYES: PERRLA, EOMI, conjunctiva normal, no discharge. Pupils are 3 mm and equal bilaterally. ENT: Hearing grossly intact, normal oropharynx. RESPIRATORY: Clear breath sounds bilaterally. No wheezes, rales, or rhonchi. No respiratory distress. No hypoxia. C/V: Regular rate and rhythm. S1 and S2 auscultated, no edema, peripheral pulses 2+ and intact throughout ABD: Abd is soft, nontender, nondistended EXT: Normal range of motion, no obvious deformity SKIN: No rashes or lesions observed on exposed skin. NEURO: Alert and oriented 4. Limitations: no limitations Course Vital Signs 08/15/22 13:59 Temperature 98.2 F Pulse Rate 78 Respiratory 20 Rate Blood Pressure 123/68 O2 Sat by Pulse 97 Oximetry Medical Decision Making - Medical Decision Making Based on the patient's presentation and physical exam, I do believe he does require psychiatric evaluation. He was placed in green scrubs. Sitter was ordered. Suicide precautions were ordered. BAT is 0. UDS is pending at this time. Vital signs within acceptable limits. He is having mild upper respiratory symptoms at this time and therefore we will obtain Covid as well as flu swabs as well as a chest x-ray. He was in agreement with this plan. Chest x-ray as interpreted by myself reveals no evidence of acute cardio pulmonary process, no infiltrate. COVID-19 and influenza swabs are negative. At this time, patient is medically cleared for evaluation by psychiatry. Disposition is pending psychiatric evaluation. EPS is notified. Was evaluated by psychiatry, and determined that he does meet inpatient criteria. Patient will be admitted to inpatient psychiatry. - Lab Data Lab Results 08/15/22 08/15/22 08/15/22 Range/Units 15:40 15:40 15:47 Urine Opiates Screen Not Detected (NotDetected) Ur Oxycodone Screen Not Detected (NotDetected) Urine Methadone Screen Not Detected (NotDetected) Ur Propoxyphene Screen Not Detected (NotDetected) Ur Barbiturates Screen Not Detected (NotDetected) U Tricyclic Antidepress Not Detected (NotDetected) Ur Phencyclidine Scrn Not Detected (NotDetected) Ur Amphetamines Screen Not Detected (NotDetected) U Methamphetamines Scrn Not Detected (NotDetected) U Benzodiazepines Scrn Not Detected (NotDetected) Urine Cocaine Screen Not Detected (NotDetected) U Marijuana (THC) Screen Detected H (NotDetected) Coronavirus (PCR) Not Detected (Not Detectd) Influenza Type A RNA Not Detected (Not Detectd) Influenza Type B (PCR) Not Detected (Not Detectd) Disposition Clinical Impression: Encounter for psychiatric assessment, Suicidal ideations Disposition: ADMITTED IP TO THIS HOSP Condition: Stable Referrals: None,Stated [Primary Care Provider] - 1-2 days
--- NOTE | 2022-08-15 15:51 | XR ---
EXAMINATION TYPE: XR chest 2V DATE OF EXAM: 08/15/2022 COMPARISON: 09/25/2017 TECHNIQUE: PA and lateral views submitted. HISTORY: Cough FINDINGS: The lungs are clear and there is no pneumothorax, pleural effusion, or focal pneumonia. Heart size normal. No overt failure. Osseous structures stable. IMPRESSION: 1. No acute process.
[2022-08-15 16:58] LABS: Amphetamine Screen,Urine Not Detected (NotDetected); Barbiturate Screen,Urine Not Detected (NotDetected); Benzodiazepines Screen,Urine Not Detected (NotDetected); Cocaine Screen,Urine Not Detected (NotDetected); Methadone Screen, Urine Not Detected (NotDetected); Opiate Screen,Urine Not Detected (NotDetected); Oxycodone Screen, Urine Not Detected (NotDetected); Phencyclidine Screen,Urine Not Detected (NotDetected); Tricyclic Antidepressant,Urine Not Detected (NotDetected); Urn Cannabinoid Scrn Detected (NotDetected)
[2022-08-15] MEDS ORDERED: MAG HYDROX/AL HYDROX/SIMETH 355 ML BOTTLE PO PRN (20:25)
[2022-08-15] MEDS ORDERED: MAGNESIUM HYDROXIDE 2,400 MG/10 ML CUP PO PRN (20:25)
[2022-08-15] MEDS ORDERED: ACETAMINOPHEN TAB 325 MG TAB PO PRN (20:25)
[2022-08-15] MEDS ORDERED: HALOPERIDOL LACTATE 5 MG/ML 1 ML VIAL IM PRN (20:25)
[2022-08-15] MEDS ORDERED: LORazepam 1 MG TAB PO PRN (20:25)
[2022-08-15] MEDS ORDERED: LORazepam 2 MG/ML INJ IM PRN (20:28)
[2022-08-15] MEDS ORDERED: haloperidoL 5 MG TAB PO PRN (20:29)
[2022-08-15] MEDS ORDERED: traZODone HCL 50 MG TAB PO SCH (21:00)
[2022-08-16] MEDS ORDERED: guaiFENesin-DM 100-10MG/5ML 10 ML CUP PO PRN (06:38)
--- NOTE | 2022-08-16 06:43 | P.MDCNMH ---
History of Present Illness H&P Date: 08/16/22 Chief Complaint: cough 22 year old male denies any significant past medical history patient brought in for suicidal ideation, patient reports no history of mental health diagnosis. he felt overwhelmed with life and social stresses. he also reports non productive cough, feeling chest cold and congestion, runny nose, no fever, no nausea vomiting, no ear pain, no chest pain , no SOB, no abd pain, no changes in bowel or urinary habits CXR in the ED no acute pathology respiratory viral panel is negative Review of Systems Pertinent positives as noted in HPI. All other systems were reviewed and are negative Past Medical History Past Medical History: No Reported History History of Any Multi-Drug Resistant Organisms: None Reported Past Surgical History: No Surgical Hx Reported Past Psychological History: Bipolar, Depression Smoking Status: Current every day smoker Past Alcohol Use History: None Reported Past Drug Use History: Marijuana - Past Family History family Additional Family Medical History / Comment(s): no reported cancer or heart disease Medications and Allergies Home Medications Medication Instructions Recorded Confirmed Type traZODone HCL [Desyrel] 150 mg PO HS 30 Days tab 06/27/22 08/15/22 Rx Allergies Allergy/AdvReac Type Severity Reaction Status Date / Time nickel Allergy Rash/Hives Verified 08/15/22 21:53 Physical Exam Vitals: Vital Signs Temp Pulse Pulse Resp BP BP Pulse Ox 08/15/22 20:35 97.8 F 84 16 145/84 94 L 08/15/22 13:59 98.2 F 78 20 123/68 97 Intake and Output 08/15/22 08/15/22 08/16/22 14:59 22:59 06:59 Other: Weight 100.698 kg 96.3 kg Constitutional: No acute distress, cooperative Eyes: Anicteric sclerae, moist conjunctiva, Pupils equal round reactive to light ENMT: NC/AT Oropharynx clear, no erythema, or exudates Neck: Supple, no masses, or JVD No carotid bruits No thyromegaly Lungs: Clear to auscultation Clear to percussion Normal respiratory effort, no accessory muscle use Cardiovascular: Heart regular in rate and rhythm, No murmurs, gallops, or rubs No peripheral edema Abdominal: Soft Nontender, no guarding, rebound or rigidity Abdomen moving with respiration Normoactive bowel sounds Skin: Normal temperature, tone, texture, turgor Extremities: No digital cyanosis No clubbing Pedal pulses intact and symmetrical Radial pulses intact and symmetrical No calf tenderness Psychiatric: Alert and oriented to person, place and time Neuro Muscles Strength 5/5 in all 4 extremities Sensation to light touch grossly present throughout Cranial nerves II-XII grossly intact No focal sensory deficits Lymphatics: no palpable cervical or supraclavicular , or inguinal lymph nodes Cranial Nerve Examination - Cranial Nerves Cranial Nerve II- Optic: Intact Cranial Nerve III- Oculomotor: Intact Cranial Nerve IV- Trochlear: Intact Cranial Nerve V- Trigeminal: Intact Cranial Nerve - Abducens: Intact Cranial Nerve VII- Facial: Intact Cranial Nerve VIII- Auditory: Intact Cranial Nerve IX- Glossopharyngeal: Intact Cranial Nerve X- Vagus: Intact Cranial Nerve XI- Accessory: Intact Cranial Nerve XII- Hypoglossal: Intact Results Labs: Abnormal Lab Results - Last 24 Hours (Table) 08/15/22 Range/Units 15:47 U Marijuana (THC) Screen Detected H (NotDetected) Assessment and Plan Assessment: acute bronchitis symptomatic control CXR no acute parthology , resp viral panel negative claritin for 5 days daily robitussin dm PRN suicidal ideation management per psych tobacco smoking nicotine gum prn thank you for this consultation
[2022-08-16 08:12] LABS: Basophils # (A) 0.1 k/uL (0-0.2); Basophils % (A) 1 %; Eosinophils # (A) 0.1 k/uL (0-0.7); Eosinophils % (A) 1 %; HCT 43.6 % (39.0-53.0); HGB 15.1 gm/dL (13.0-17.5); Lymphocytes # (A) 2.2 k/uL (1.0-4.8); Lymphocytes % (A) 20 %; MCH 30.3 pg (25.0-35.0); MCHC 34.7 g/dL (31.0-37.0); MCV 87.4 fL (80.0-100.0); Mean Platelet Volume 8.4; Monocytes # (A) 0.7 k/uL (0-1.0); Monocytes % (A) 6 %; Neutrophils % (A) 71 %; Platelet Count 256 k/uL (150-450); RDW 12.3 % (11.5-15.5); WBC 11.3 k/uL (3.8-10.6)
[2022-08-16 08:28] LABS: ALT 19 U/L (4-49); AST 19 U/L (17-59); African American GFR (CKD) >90 (>60 ml/min/1.73 sqM); Albumin 4.2 g/dL (3.5-5.0); Alkaline Phosphatase 82 U/L (38-126); Anion Gap 8 mmol/L; Blood Urea Nitrogen 13 mg/dL (9-20); Calcium 9.2 mg/dL (8.4-10.2); Carbon Dioxide 27 mmol/L (22-30); Chloride 105 mmol/L (98-107); Glucose 87 mg/dL (74-99); Non-African American GFR(CKD) >90 (>60 ml/min/1.73 sqM); Potassium 4.3 mmol/L (3.5-5.1); Sodium 140 mmol/L (137-145); Total Bilirubin 0.8 mg/dL (0.2-1.3); Total Protein 6.8 g/dL (6.3-8.2)
[2022-08-16] MEDS: LORATADINE 10 MG TAB PO SCH (08:30)
[2022-08-16] MEDS: NICOTINE 14MG/24HR PATCH TRANSDERM SCH (08:30)
[2022-08-16] MEDS: NICOTINE GUM (POLACRILEX) 2 MG GUM BUCCAL PRN ×2 (08:32→19:53)
[2022-08-16] MEDS ORDERED: FLUoxetine HCL 20 MG CAP PO SCH (09:00)
[2022-08-16] MEDS ORDERED: traZODone HCL 50 MG TAB PO PRN (18:24)
--- NOTE | 2022-08-16 18:27 | P.HP ---
Psychiatric H&P - . H&P Date: 08/16/22 History & Physical: IDENTIFYING DATA: Patient is a 22 year old male with history of depression, anxiety, and history of 2 suicide attempts. HPI: Patient presented to the hospital due to suicidal ideations. "Pt lives at [facility] r/t nonpayment of his child support. Pt states he has no hope for his future, he has no job and he just found out that his son's mother abandoned their son with her . The child is 3 years old and he has only seen him once in his life. He has no idea where is child lives only that he lives with his stepfather. He said that the holidays are making him sad because he has no support system. His family lives in [place] and he feels disconnected from them. Every day he gets sadder and sadder. He has no plan but thinks about it often especially since the holidays are coming up. He feels like a failure and has no hope for the future. He is endorcing suicidal ideation at this time. Pt was recently on the unit in June with basically the same s/s." On my assessment, he presents with suicidal ideations for the past two days or more, but denies specific plan at this time. He reports depressed mood for the past 2 weeks, the Holidays are coming up and no family around. He reports he sleeps too much, anhedonia, low motivation, poor concentration, fair appetite. Patient denies homicidal ideation, intent or plan. At this time, patient denies any auditory or visual hallucinations. Patient denies any flight of ideas racing thoughts and increased in goal directed behavior. Patient admits to using meth two days ago, which he regrets doing. 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 He reports some anxiety. He smokes cigarettes, 0.25 ppd. He also has a history of abusing crack (denies recent use), acid (denies recent use) and marijuana (using sporadically). He currently uses marijuana to cope with stress. PAST PSYCHIATRIC HISTORY: Patient states that he is diagnosed with FRANCIA and MDD. Patient reports he is on Trazodone 150 mg QHS. He stopped the Prozac because it wasn't helping. He previously took Zoloft, Seroquel, Zyprexa, Schulter, Abilify. Previous psychiatric hospitalizations: 7-8 times Psychiatric outpatient follow-up: None He has a history of "a handful of times", most recently in January 2022 via fentanyl overdose. PMH: denies ALLERGIES: as per EMR CHEMICAL DEPENDENCY HISTORY: as per HPI FAMILY PSYCHIATRIC/SUBSTANCE USE HISTORY: denies SOCIAL HISTORY: Patient was born and raised in [place], [place]. He has been staying in [place], [place] for the past 7 years off and on. He reports a 10th grade education. He denies any source of income at this time; is trying to find a job. He was incarcerated for 6 months due to unpaid child support; currently lives at [facility]. He has one 3-year-old son who currently lives in [place]. Patient's mother lives in [place] now. MENTAL STATUS EXAM: General Appearance: Patient appears to be stated age is alert, dressed in black shirt and genes, has cruz, fair hygiene. Behavior: Patient is seated without any agitated behavior. He appears withdrawn. Speech: Patient's speech is fluent and non-pressured. Mood/Affect: Patient reports their mood is depressed, affect is congruent and constricted. Suicidality/Homicidality: Patient denies having any homicidal ideation intent or plan. Denies any suicidal ideation, intent or plan. Perceptions: Patient denies any visual hallucinations and denies any auditory hallucinations. Though content/process: There is no evidence of any delusional thought content and thought process is linear and goal-directed. Memory and concentration: AOX3, grossly intact for the purposes of this session. Can spell "WORLD" backwards Judgment and insight: fair STRENGTHS/WEAKNESSES: strength is that patient is resilient. Weakness is that patient noncompliance with treatment. INTELLECT: Average IMPRESSIONS: Major depressive disorder, recurrent, severe Generalized anxiety disorder by history Stimulant use disorder (methamphetamine) Tobacco use disorder PLAN: -Patient is admitted under voluntary status to [facility]HU for stabilization of psychiatric symptoms and safety. Patient has signed adult voluntary form and medication consent and is placed in patient's chart. -Medications: Will start patient on Zoloft 50 mg daily for depression. Decrease Trazodone to 100 mg QHS PRN for sleep. -Ativan and Haldol PRN for agitation/aggression -Patient was counselled on substance abuse -Patient was informed of the risks, benefits and side effects of the medication and patient verbally consented to taking the medications. Patient signed med consent form and was placed in chart. -Internal Medicine consult to perform medical evaluation and physical. -NRT - nicotine patch -SW on board for discharge planning. Encourage patient to participate in groups to work on coping skills. Allergies Allergy/AdvReac Type Severity Reaction Status Date / Time nickel Allergy Rash/Hives Verified 08/15/22 21:53 Vital Signs Temp 97.8 F 08/15/22 20:35 Pulse 84 08/15/22 20:35 Resp 16 08/15/22 20:35 BP 145/84 08/15/22 20:35 Pulse Ox 94 L 08/15/22 20:35 FiO2 Intake & Output 08/15/22 08/16/22 08/16/22 18:59 06:59 18:59 Weight 100.698 kg 96.3 kg Laboratory Last Values WBC 11.3 k/uL (3.8-10.6) H 08/16/22 07:30 RBC 5.00 m/uL (4.30-5.90) 08/16/22 07:30 Hgb 15.1 gm/dL (13.0-17.5) 08/16/22 07:30 Hct 43.6 % (39.0-53.0) 08/16/22 07:30 MCV 87.4 fL (80.0-100.0) 08/16/22 07:30 MCH 30.3 pg (25.0-35.0) 08/16/22 07:30 MCHC 34.7 g/dL (31.0-37.0) 08/16/22 07:30 RDW 12.3 % (11.5-15.5) 08/16/22 07:30 Plt Count 256 k/uL (150-450) 08/16/22 07:30 MPV 8.4 08/16/22 07:30 Neutrophils % 71 % 08/16/22 07:30 Lymphocytes % 20 % 08/16/22 07:30 Monocytes % 6 % 08/16/22 07:30 Eosinophils % 1 % 08/16/22 07:30 Basophils % 1 % 08/16/22 07:30 Neutrophils # 8.0 k/uL (1.3-7.7) H 08/16/22 07:30 Lymphocytes # 2.2 k/uL (1.0-4.8) 08/16/22 07:30 Monocytes # 0.7 k/uL (0-1.0) 08/16/22 07:30 Eosinophils # 0.1 k/uL (0-0.7) 08/16/22 07:30 Basophils # 0.1 k/uL (0-0.2) 08/16/22 07:30 Sodium 140 mmol/L (137-145) 08/16/22 07:30 Potassium 4.3 mmol/L (3.5-5.1) 08/16/22 07:30 Chloride 105 mmol/L (98-107) 08/16/22 07:30 Carbon Dioxide 27 mmol/L (22-30) 08/16/22 07:30 Anion Gap 8 mmol/L 08/16/22 07:30 BUN 13 mg/dL (9-20) 08/16/22 07:30 Creatinine 0.78 mg/dL (0.66-1.25) 08/16/22 07:30 Est GFR (CKD-EPI)AfAm >90 (>60 ml/min/1.73 sqM) 08/16/22 07:30 Est GFR (CKD-EPI)NonAf >90 (>60 ml/min/1.73 sqM) 08/16/22 07:30 Glucose 87 mg/dL (74-99) 08/16/22 07:[address] Glu mg/dL 97 08/16/22 07:30 Hemoglobin A1c 5.0 % (0.0-6.0) 08/16/22 07:30 Calcium 9.2 mg/dL (8.4-10.2) 08/16/22 07:30 Total Bilirubin 0.8 mg/dL (0.2-1.3) 08/16/22 07:30 AST 19 U/L (17-59) 08/16/22 07:30 ALT 19 U/L (4-49) 08/16/22 07:30 Alkaline Phosphatase 82 U/L (38-126) 08/16/22 07:30 Total Protein 6.8 g/dL (6.3-8.2) 08/16/22 07:30 Albumin 4.2 g/dL (3.5-5.0) 08/16/22 07:30 TSH 1.240 mIU/L (0.465-4.680) 08/16/22 07:30 Urine Opiates Screen Not Detected (NotDetected) 08/15/22 15:47 Ur Oxycodone Screen Not Detected (NotDetected) 08/15/22 15:47 Urine Methadone Screen Not Detected (NotDetected) 08/15/22 15:47 Ur Propoxyphene Screen Not Detected (NotDetected) 08/15/22 15:47 Ur Barbiturates Screen Not Detected (NotDetected) 08/15/22 15:47 U Tricyclic Antidepress Not Detected (NotDetected) 08/15/22 15:47 Ur Phencyclidine Scrn Not Detected (NotDetected) 08/15/22 15:47 Ur Amphetamines Screen Not Detected (NotDetected) 08/15/22 15:47 U Methamphetamines Scrn Not Detected (NotDetected) 08/15/22 15:47 U Benzodiazepines Scrn Not Detected (NotDetected) 08/15/22 15:47 Urine Cocaine Screen Not Detected (NotDetected) 08/15/22 15:47 U Marijuana (THC) Screen Detected (NotDetected) H 08/15/22 15:47 Coronavirus (PCR) Not Detected (Not Detectd) 08/15/22 15:40 Influenza Type A RNA Not Detected (Not Detectd) 08/15/22 15:40 Influenza Type B (PCR) Not Detected (Not Detectd) 08/15/22 15:40 08/16/22 17:44 08/16/22 18:02 08/16/22 18:23 08/16/22 18:25
[2022-08-16] MEDS: SERTRALINE 50 MG TAB PO SCH (19:51)
[2022-08-16 20:05] LABS: Chol/HDL Ratio 3.84 Ratio; LDL Cholesterol,Calculated 85.9 mg/dL (0.0-131.0); VLDL Calculation 18.36 mg/dL (5.00-40.00)
[2022-08-16] MEDS ORDERED: traZODone HCL 50 MG TAB PO SCH (21:00)
[2022-08-17] MEDS ORDERED: BENZOCAINE 20 % GEL 11.9 GM TUBE MM ONE (08:11)
[2022-08-17] MEDS: NICOTINE 14MG/24HR PATCH TRANSDERM SCH (09:04)
[2022-08-17] MEDS: LORATADINE 10 MG TAB PO SCH (09:05)
[2022-08-17] MEDS: SERTRALINE 50 MG TAB PO SCH (20:03)
[2022-08-17] MEDS: NICOTINE GUM (POLACRILEX) 2 MG GUM BUCCAL PRN ×2 (20:04→22:21)
--- NOTE | 2022-08-17 20:05 | P.PN ---
Progress Note - Text Progress Note Date: 08/17/22 Interval history: Patient was directable and agreeable to speak with radio script writer. He reports mood is "pretty good" today but objectively appeared depressed and withdrawn. At this time patient denies any suicidal or homicidal ideation, intent or plan. Denies any auditory or visual hallucinations. Patient denies any side effects from the medications and has been compliant with meds. Mental status exam: General Appearance: Patient appears to be stated age is alert, dressed in black shirt and genes, has cruz, fair hygiene. Behavior: Patient iswithout any agitated behavior. He appears withdrawn. Speech: Patient's speech is fluent and non-pressured. Mood/Affect: Patient reports their mood is "pretty good", affect is incongruent and constricted and depressed. Suicidality/Homicidality: Patient denies having any homicidal ideation intent or plan. Denies any suicidal ideation, intent or plan. Perceptions: Patient denies any visual hallucinations and denies any auditory hallucinations. Though content/process: There is no evidence of any delusional thought content and thought process is linear and goal-directed. Memory and concentration: AOX3, grossly intact for the purposes of this session. Judgment and insight: improving mildly Assessment/Plan: Continue with current diagnosis. Patient continues to meet criteria for inpatient psychiatric admission for symptom stabilization and safety. Patient will be maintained on current psychotropic medication regimen for today, with plan to increase Zoloft as tolerated. Monitor for medication compliance and for any psychotropic medication side effects. Will continue to monitor ongoing response to treatment. Encouraged participation in milieu.
[2022-08-18] MEDS: NICOTINE 14MG/24HR PATCH TRANSDERM SCH (08:28)
[2022-08-18] MEDS: LORATADINE 10 MG TAB PO SCH (08:28)
--- NOTE | 2022-08-18 11:47 | P.PN ---
Progress Note - Text Progress Note Date: 08/18/22 Interval History: Patient was seen resting in bed and was directable and agreeable to speak with leader writer in the office., The patient reports that he is feeling better today. He is not reporting any suicidal or homicidal ideation, intention, and/or plan. He is not reporting any auditory or visual hallucinations. He has been adherent with his medication is not endorsing any significant side effects. The patient does however continue to endorse feelings of hopelessness and helplessness. He states that he is alone for the holidays and has no family around. He does have a 3-year-old child in [place] on however due to unpaid child support payments, he is not able to see him. We discussed at length cognitive reframing and techniques to help build up self-esteem. The patient is requesting that he be placed back on Seroquel as he found this medication to be more helpful than trazodone. He is in agreement to further titration of his Zoloft. Mental Status Exam: General Appearance: Patient appears to be stated age is alert, directable, and cooperative. Behavior: Patient is calmly seated without any agitated behavior. Speech: Patient's speech is fluent and nonpressured. Mood/Affect: Mood is improving mildly, affect appears to be withdrawn and constricted Suicidality/Homicidality: Patient denies having any suicidal or homicidal ideation intent or plan. Perceptions: Patient denies any visual hallucinations and denies any auditory hallucinations Though content/process: There is no evidence of any delusional thought content and thought process is linear and goal-directed. Memory and concentration: AOX3, grossly intact for the purposes of this session Judgment and insight: Improving mildly Vital Signs Temp 97.8 F 08/15/22 20:35 Pulse 84 08/15/22 20:35 Resp 16 08/15/22 20:35 BP 145/84 08/15/22 20:35 Pulse Ox 94 L 08/15/22 20:35 FiO2 Intake & Output 08/17/22 08/18/22 08/18/22 18:59 06:59 18:59 Weight 98.6 kg Assessment Major depressive disorder, recurrent, severe Generalized anxiety disorder by history Stimulant use disorder (methamphetamine) Tobacco use disorder Plan: -Patient continues to meet criteria for inpatient psychiatric admission for symptom stabilization and safety. Patient has signed adult voluntary form and medication consent and was placed in patient's chart. -Medications: Increase Zoloft 100 mg by mouth daily for depression Start Seroquel 150 mg by mouth at bedtime for mood augmentation and discontinue trazodone -When necessary Ativan and Haldol for agitation/aggression. -NRT - nicotine patch -SW on board for discharge planning. Encouraged the patient to participate in milieu.
[2022-08-18] MEDS: NICOTINE GUM (POLACRILEX) 2 MG GUM BUCCAL PRN ×3 (13:28→19:16)
[2022-08-18] MEDS ORDERED: BENZOCAINE 20 % GEL 11.9 GM TUBE MM ONE (20:00)
[2022-08-18] MEDS ORDERED: QUEtiapine 50 MG TAB PO SCH (21:00)
[2022-08-18] MEDS ORDERED: SERTRALINE 100 MG TAB PO SCH (21:00)
[2022-08-19 06:37] VITALS: BP 115/63; PULSE 63; RESP 17; TEMP 98.1
[2022-08-19] MEDS: NICOTINE GUM (POLACRILEX) 2 MG GUM BUCCAL PRN ×3 (06:42→12:23)
[2022-08-19] MEDS: LORATADINE 10 MG TAB PO SCH (08:32)
[2022-08-19] MEDS: NICOTINE 14MG/24HR PATCH TRANSDERM SCH (08:32)
--- NOTE | 2022-08-19 11:25 | P.DS ---
Providers Date of admission: 08/15/22 20:20 Expected date of discharge: 08/19/22 Attending physician: Ryan Anthony MD Consults: 08/15/22 20:25 Consult Physician Routine Consulting Provider: Lara Bautista Consult Reason/Comments: medical management Do you want consulting provider notified?: Yes Primary care physician: Stated None - Discharge Diagnosis(es) (1) Major depressive disorder, recurrent severe without psychotic features Current Visit: Yes Status: Acute Priority: High (2) FRANCIA (generalized anxiety disorder) Current Visit: Yes Status: Chronic Priority: Medium (3) Tobacco use disorder Current Visit: Yes Status: Chronic Priority: Medium (4) Stimulant use disorder Current Visit: Yes Status: Suspected Priority: Low Hospital Course: Admission HPI: Initial psychiatric evaluation was completed by Dr. Le on 08/16/2022 who wrote: " Patient is a 22 year old male with history of depression, anxiety, and history of 2 suicide attempts. HPI: Patient presented to the hospital due to suicidal ideations. "Pt lives at [facility] r/t nonpayment of his child support. Pt states he has no hope for his future, he has no job and he just found out that his son's mother abandoned their son with her . The child is 3 years old and he has only seen him once in his life. He has no idea where is child lives only that he lives with his stepfather. He said that the holidays are making him sad because he has no support system. His family lives in [place] and he feels disconnected from them. Every day he gets sadder and sadder. He has no plan but thinks about it often especially since the holidays are coming up. He feels like a failure and has no hope for the future. He is endorcing suicidal ideation at this time. Pt was recently on the unit in June with basically the same s/s." On my assessment, he presents with suicidal ideations for the past two days or more, but denies specific plan at this time. He reports depressed mood for the past 2 weeks, the Holidays are coming up and no family around. He reports he sleeps too much, anhedonia, low motivation, poor concentration, fair appetite. Patient denies homicidal ideation, intent or plan. At this time, patient denies any auditory or visual hallucinations. Patient denies any flight of ideas racing thoughts and increased in goal directed behavior. Patient admits to using meth two days ago, which he regrets doing. 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 He reports some anxiety. He smokes cigarettes, 0.25 ppd. He also has a history of abusing crack (denies recent use), acid (denies recent use) and marijuana (using sporadically). He currently uses marijuana to cope with stress. PAST PSYCHIATRIC HISTORY: Patient states that he is diagnosed with FRANCIA and MDD. Patient reports he is on Trazodone 150 mg QHS. He stopped the Prozac because it wasn't helping. He previously took Zoloft, Seroquel, Zyprexa, [place], Abilify. Previous psychiatric hospitalizations: 7-8 times Psychiatric outpatient follow-up: None He has a history of "a handful of times", most recently in January 2022 via fentanyl overdose. " Hospital course: Upon admission to the unit patient was initially presenting as withdrawn, depressed, and with a constricted affect. Patient was however directable and agreeable to commence treatment. Patient got along well with other patients on the unit and followed unit protocol. Patient was compliant with the medications and denied any side effects throughout hospital course. Patient was started on Zoloft for management of depression and trazodone for insomnia. Patient spoke of his stressors and engaged in therapy both group and individual. Patient was also seen by medical team for history and physical exam. The patient was transitioned from trazodone to Seroquel to help augment his antidepressant and to help with his insomnia. Over the course of the hospitalization, the patient displayed gradual but significant improvement regrets was started symptoms of depression and suicidal ideation. He became more future and goal oriented and developed better insight and judgment. He became more future and goal oriented. We talked at length about utilizing public resources such as the library. On the day of discharge, the patient is not reporting any suicidal or homicidal ideation, intention, and/or plan. He reports no access to firearms or other weapons. He denies any auditory or visual hallucinations. He reports no paranoia or other delusions. The patient has been in adherent with his medication is not reporting any significant side effects. The patient was counseled great length and he points medication adherence and appropriate outpatient follow-up. He does have a significant history of substance abuse however was counseled great length on abstaining from all substances including alcohol and marijuana. The patient's urinary drug screen was only positive for marijuana. Care was coordinated with [facility]. As additional enema criteria for continued inpatient psychiatric admission, he was discharged back to the [facility]. Mental status exam: General Appearance: Patient appears to be stated age is alert, pleasant, and cooperative. Patient is in no acute distress and has fair hygiene and grooming Behavior: Patient is calmly seated without any agitated behavior. Speech: Patient's speech is fluent and nonpressured. Mood/Affect: Patient reports their mood is "feeling good", affect is congruent a nd euthymic. Constricted range. Suicidality/Homicidality: Patient reports no suicidal or homicidal ideation, intention, and/or plan. Perceptions: Patient denies any auditory or visual hallucinations. Though content/process: There is no evidence of any delusional thought content and thought process is linear and goal-directed. He is future oriented. Memory and concentration: AOX3, grossly intact for the purposes of this session. Can spell "WORLD" backwards correctly. Judgment and insight: Improved with guarded prognosis Impression: Major depressive disorder, recurrent, severe Generalized anxiety disorder Stimulant use disorder Tobacco use disorder Plan: -Continue with discharge today as patient has improved and stabilized psychiatrically and is not currently an imminent threat to himself and/or others. Patient will remain at chronically elevated risk for harm to self and/or others due to his impulsivity and polysubstance abuse. -Continue medications: Zoloft 100 mg by mouth at bedtime for depression/anxiety Seroquel 150 mg daily at bedtime for mood augmentation/insomnia Claritin for seasonal ALLERGIES -Patient was counseled on the need for medication compliance and appropriate follow-up at mental health and also primary care for medical issues. Patient verbalized understanding and agreed. -Social work to arrange for and conduct family meeting to ensure safety upon discharge and answer any questions/concerns. Social work also to arrange for patients follow up appointments with [facility] for psychiatric care along with follow up with primary care provider. -Patient counseled on abstaining from recreational drugs and marijuana and alcohol. Was informed/educated on the adverse effects on their physical and mental health. Patient verbally agreed and understood. -Patient was instructed to return to the hospital or seek immediate medical care if their psychiatric or medical symptoms do worsen or reoccur. -Psychoeducation and supportive therapy provided to patient. Risks and benefits of pharmacological treatment versus the risks and benefits of nontreatment weight and discussed. Informed consent discussion held. Common side effects of psychotropics discussed such as, but not limited to headache, GI disturbance, sexual dysfunction, movement disorders, sedation, and orthostatic hypotension. Life threatening and blackbox warnings of prescribed medications also discussed. Potential risks of operating a vehicle or heavy machinery discussed with patient at length. Advised on importance of compliance and a reliable and responsible manner. Patient advised to review FDA consumer labeling of all medications prior to taking. Patient verbalized understanding of potential risks, and agrees with current treatment plan. Patient advised to medically contact physician/emergency personnel if any acute changes in condition occur. Vital Signs Temp 98.1 F 08/18/22 20:23 Pulse 63 08/18/22 20:23 Resp 17 08/18/22 20:23 BP 115/63 08/18/22 20:23 Pulse Ox 98 08/18/22 20:23 FiO2 Laboratory Results WBC 11.3 k/uL (3.8-10.6) H 08/16/22 07:30 RBC 5.00 m/uL (4.30-5.90) 08/16/22 07:30 Hgb 15.1 gm/dL (13.0-17.5) 08/16/22 07:30 Hct 43.6 % (39.0-53.0) 08/16/22 07:30 MCV 87.4 fL (80.0-100.0) 08/16/22 07:30 MCH 30.3 pg (25.0-35.0) 08/16/22 07:30 MCHC 34.7 g/dL (31.0-37.0) 08/16/22 07:30 RDW 12.3 % (11.5-15.5) 08/16/22 07:30 Plt Count 256 k/uL (150-450) 08/16/22 07:30 MPV 8.4 08/16/22 07:30 Neutrophils % 71 % 08/16/22 07:30 Lymphocytes % 20 % 08/16/22 07:30 Monocytes % 6 % 08/16/22 07:30 Eosinophils % 1 % 08/16/22 07:30 Basophils % 1 % 08/16/22 07:30 Neutrophils # 8.0 k/uL (1.3-7.7) H 08/16/22 07:30 Lymphocytes # 2.2 k/uL (1.0-4.8) 08/16/22 07:30 Monocytes # 0.7 k/uL (0-1.0) 08/16/22 07:30 Eosinophils # 0.1 k/uL (0-0.7) 08/16/22 07:30 Basophils # 0.1 k/uL (0-0.2) 08/16/22 07:30 Sodium 140 mmol/L (137-145) 08/16/22 07:30 Potassium 4.3 mmol/L (3.5-5.1) 08/16/22 07:30 Chloride 105 mmol/L (98-107) 08/16/22 07:30 Carbon Dioxide 27 mmol/L (22-30) 08/16/22 07:30 Anion Gap 8 mmol/L 08/16/22 07:30 BUN 13 mg/dL (9-20) 08/16/22 07:30 Creatinine 0.78 mg/dL (0.66-1.25) 08/16/22 07:30 Est GFR (CKD-EPI)AfAm >90 (>60 ml/min/1.73 sqM) 08/16/22 07:30 Est GFR (CKD-EPI)NonAf >90 (>60 ml/min/1.73 sqM) 08/16/22 07:30 Glucose 87 mg/dL (74-99) 08/16/22 07:[address] Glu mg/dL 97 08/16/22 07:30 Hemoglobin A1c 5.0 % (0.0-6.0) 08/16/22 07:30 Calcium 9.2 mg/dL (8.4-10.2) 08/16/22 07:30 Total Bilirubin 0.8 mg/dL (0.2-1.3) 08/16/22 07:30 AST 19 U/L (17-59) 08/16/22 07:30 ALT 19 U/L (4-49) 08/16/22 07:30 Alkaline Phosphatase 82 U/L (38-126) 08/16/22 07:30 Total Protein 6.8 g/dL (6.3-8.2) 08/16/22 07:30 Albumin 4.2 g/dL (3.5-5.0) 08/16/22 07:30 Triglycerides 91.80 mg/dL (0.00-149.00) 08/16/22 07:30 Cholesterol 141.00 mg/dL (0.00-200.00) 08/16/22 07:30 LDL Cholesterol, Calc 85.9 mg/dL (0.0-131.0) 08/16/22 07:30 VLDL Cholesterol, Calc 18.36 mg/dL (5.00-40.00) 08/16/22 07:30 HDL Cholesterol 36.70 mg/dL (40.00-60.00) L 08/16/22 07:30 Cholesterol/HDL Ratio 3.84 Ratio 08/16/22 07:30 TSH 1.240 mIU/L (0.465-4.680) 08/16/22 07:30 Urine Opiates Screen Not Detected (NotDetected) 08/15/22 15:47 Ur Oxycodone Screen Not Detected (NotDetected) 08/15/22 15:47 Urine Methadone Screen Not Detected (NotDetected) 08/15/22 15:47 Ur Propoxyphene Screen Not Detected (NotDetected) 08/15/22 15:47 Ur Barbiturates Screen Not Detected (NotDetected) 08/15/22 15:47 U Tricyclic Antidepress Not Detected (NotDetected) 08/15/22 15:47 Ur Phencyclidine Scrn Not Detected (NotDetected) 08/15/22 15:47 Ur Amphetamines Screen Not Detected (NotDetected) 08/15/22 15:47 U Methamphetamines Scrn Not Detected (NotDetected) 08/15/22 15:47 U Benzodiazepines Scrn Not Detected (NotDetected) 08/15/22 15:47 Urine Cocaine Screen Not Detected (NotDetected) 08/15/22 15:47 U Marijuana (THC) Screen Detected (NotDetected) H 08/15/22 15:47 Coronavirus (PCR) Not Detected (Not Detectd) 08/15/22 15:40 Influenza Type A RNA Not Detected (Not Detectd) 08/15/22 15:40 Influenza Type B (PCR) Not Detected (Not Detectd) 08/15/22 15:40 Allergies Allergy/AdvReac Type Severity Reaction Status Date / Time nickel Allergy Rash/Hives Verified 08/15/22 21:53 Patient Condition at Discharge: Stable Plan - Discharge Summary Discharge Rx Participant: Yes New Discharge Prescriptions: New Sertraline [Zoloft] 100 mg PO HS 15 Days tab Loratadine [Claritin] 10 mg PO DAILY 15 Days tab QUEtiapine [SEROquel] 150 mg PO HS 15 Days tab Discontinued traZODone HCL [Desyrel] 150 mg PO HS 30 Days tab Discharge Medication List Loratadine [Claritin] 10 mg PO DAILY 15 Days tab 08/19/22 [Rx] QUEtiapine [SEROquel] 150 mg PO HS 15 Days tab 08/19/22 [Rx] Sertraline [Zoloft] 100 mg PO HS 15 Days tab 08/19/22 [Rx] Follow up Appointment(s)/Referral(s): [facility] [Outside] - 08/25/22 11:00 am (with intake) [facility] [[facility]] - 1 Week Patient Instructions/Handouts: Depression (DC) Activity/Diet/Wound Care/Special Instructions: Avoid the use of street drugs and alcohol. Take all prescriptions as prescribed. When you are in need of refills on your medications, please contact your medical provider and/or outpatient psychiatrist to have this done. Please go to scheduled outpatient appointment for aftercare treatment. If symptoms return or become worse, call the crisis line at and/or go to the nearest emergency room for evaluation Discharge Disposition: HOME SELF-CARE
== END 2022-08-19 13:24 | disposition home or self-care (01) | DRG 885 ==
LOC: EC 13:50 → 3MHU 20:20
PROVIDERS: ADMIT Psychiatry & Neurology Psychiatry; ATTEND Psychiatry & Neurology Psychiatry
DX: F33.2 Major depressive disorder, recurrent severe without psychotic features (principal); R45.851 Suicidal ideations; J20.9 Acute bronchitis, unspecified; Z20.822 Contact with and (suspected) exposure to COVID-19; F15.10 Other stimulant abuse, uncomplicated; F17.210 Nicotine dependence, cigarettes, uncomplicated; F41.1 Generalized anxiety disorder; G47.00 Insomnia, unspecified; J30.2 Other seasonal allergic rhinitis; Z79.899 Other long term (current) drug therapy; Z91.51 Personal history of suicidal behavior; Z91.048 Other nonmedicinal substance allergy status; Z71.6 Tobacco abuse counseling; Z71.51 Drug abuse counseling and surveillance of drug abuser
CPT/HCPCS: 71046; 80053; 80061; 80306; 82075; 83036; 84443; 85025; 87502; 87635; 99285

== ENCOUNTER 2022-08-21 13:15 | Emergency (ER) | payer OTHER ==
[2022-08-21 14:11] VITALS: BP 139/85; PULSE 92; RESP 18; TEMP 98
[2022-08-21 16:24] LABS: Basophils # (A) 0.1 k/uL (0-0.2); Basophils % (A) 1 %; Eosinophils # (A) 0.1 k/uL (0-0.7); Eosinophils % (A) 1 %; HCT 46.2 % (39.0-53.0); HGB 16.2 gm/dL (13.0-17.5); Lymphocytes # (A) 2.5 k/uL (1.0-4.8); Lymphocytes % (A) 24 %; MCH 30.5 pg (25.0-35.0); MCV 87.2 fL (80.0-100.0); Mean Platelet Volume 10.2; Monocytes # (A) 0.6 k/uL (0-1.0); Monocytes % (A) 6 %; Neutrophils # (A) 6.9 k/uL (1.3-7.7); Neutrophils % (A) 67 %; RDW 12.6 % (11.5-15.5); WBC 10.4 k/uL (3.8-10.6)
--- NOTE | 2022-08-21 16:36 | ED ---
General Adult HPI - General Source: patient Mode of arrival: ambulatory Limitations: no limitations - History of Present Illness Onset/Timin -: days(s) Consistency: constant Improves with: none Worsens with: none <Kd March - Last Filed: 08/21/22 16:43> <Antonio Medrano - Last Filed: 08/24/22 22:00> - General Chief complaint: Syncope Stated complaint: syncope Time Seen by Provider: 08/21/22 15:43 - History of Present Illness Initial comments: This patient is 22-year-old man who presents with 2 complaints. The first complaint is that he had a passing out episode this morning. Patient states he had gotten up and was beginning to walk when he felt lightheaded and then subsequent only passed out. He states that he did not have any injury when he fell. No loss of continence. No reported postictal period. The patient states that he had started new psychiatric medications and believes it may be related to his use of the medication. He was feeling well yesterday. Patient also stated that he was feeling depressed and had some suicidal ideations. (Kd March) - Related Data Previous Rx's Medication Instructions Recorded Loratadine [Claritin] 10 mg PO DAILY 15 Days tab 08/19/22 QUEtiapine [SEROquel] 150 mg PO HS 15 Days tab 08/19/22 Sertraline [Zoloft] 100 mg PO HS 15 Days tab 08/19/22 Allergies Allergy/AdvReac Type Severity Reaction Status Date / Time nickel Allergy Rash/Hives Verified 08/24/22 00:07 Review of Systems ROS Other: All systems not noted in ROS Statement are negative. Constitutional: Denies: fever, chills, weakness Eyes: Denies: vision change Respiratory: Denies: cough, dyspnea Cardiovascular: Reports: syncope. Denies: chest pain, palpitations, orthopnea, edema Gastrointestinal: Denies: abdominal pain, vomiting, diarrhea Genitourinary: Denies: dysuria, hematuria Musculoskeletal: Denies: back pain Skin: Denies: rash Neurological: Denies: headache, weakness, numbness, confusion Psychiatric: Reports: depression, suicidal thoughts. Denies: auditory hallucinations, visual hallucinations, homicidal thoughts <Kd March - Last Filed: 08/21/22 16:43> ROS Other: All systems not noted in ROS Statement are negative. <Antonio Medrano - Last Filed: 08/24/22 22:00> ROS Statement: Those systems with pertinent positive or pertinent negative responses have been documented in the HPI. Past Medical History Past Medical History: No Reported History History of Any Multi-Drug Resistant Organisms: None Reported Past Surgical History: No Surgical Hx Reported Past Psychological History: Bipolar, Depression Smoking Status: Current every day smoker Past Alcohol Use History: None Reported Past Drug Use History: Marijuana - Past Family History family Additional Family Medical History / Comment(s): no reported cancer or heart disease <Kd March - Last Filed: 08/21/22 16:43> General Exam Limitations: no limitations General appearance: alert, in no apparent distress Head exam: Present: atraumatic, normocephalic Eye exam: Present: normal appearance. Absent: scleral icterus, conjunctival injection Neck exam: Present: normal inspection Respiratory exam: Present: normal lung sounds bilaterally. Absent: respiratory distress, wheezes, rales, rhonchi, stridor Cardiovascular Exam: Present: regular rate, normal rhythm, normal heart sounds. Absent: systolic murmur, diastolic murmur, rubs, gallop GI/Abdominal exam: Present: soft. Absent: distended, tenderness, guarding, rebound, rigid, mass Extremities exam: Present: normal inspection, normal capillary refill. Absent: pedal edema, calf tenderness Back exam: Present: normal inspection Neurological exam: Present: alert, oriented X3, CN II-XII intact. Absent: motor sensory deficit Skin exam: Present: warm, dry, intact, normal color. Absent: rash <Kd March - Last Filed: 08/21/22 16:43> Course <Antonio Medrano - Last Filed: 08/24/22 22:00> Vital Signs 08/21/22 14:07 Temperature 98 F Pulse Rate 92 Respiratory 18 Rate Blood Pressure 139/85 O2 Sat by Pulse 97 Oximetry - Reevaluation(s) Reevaluation #1: medical record is reviewed medically clear for psychiatric evaluation (Antonio Medrano) EKG Findings - EKG Comments: EKG Findings:: Early repolarization. - EKG Results: EKG: interpreted by ERMD, sinus rhythm (Rate 66 bpm), normal axis, normal QRS <Kd March - Last Filed: 08/21/22 16:43> Medical Decision Making - Lab Data Result diagrams: 08/21/22 16:08 08/21/22 17:40 <Antonio Medrano - Last Filed: 08/24/22 22:00> - Medical Decision Making 22 male seen and examined for psychiatric evaluation ok for DC home. ( Antonio Medrano) - Lab Data Lab Results 08/21/22 08/21/22 08/21/22 Range/Units 16:08 17:40 17:40 WBC 10.4 (3.8-10.6) k/uL RBC 5.30 (4.30-5.90) m/uL Hgb 16.2 (13.0-17.5) gm/dL Hct 46.2 (39.0-53.0) % MCV 87.2 (80.0-100.0) fL MCH 30.5 (25.0-35.0) pg MCHC 35.0 (31.0-37.0) g/dL RDW 12.6 (11.5-15.5) % Plt Count 112 L D (150-450) k/uL MPV 10.2 Neutrophils % 67 % Lymphocytes % 24 % Monocytes % 6 % Eosinophils % 1 % Basophils % 1 % Neutrophils # 6.9 (1.3-7.7) k/uL Lymphocytes # 2.5 (1.0-4.8) k/uL Monocytes # 0.6 (0-1.0) k/uL Eosinophils # 0.1 (0-0.7) k/uL Basophils # 0.1 (0-0.2) k/uL Sodium 140 (137-145) mmol/L Potassium 4.5 (3.5-5.1) mmol/L Chloride 104 (98-107) mmol/L Carbon Dioxide 25 (22-30) mmol/L Anion Gap 11 mmol/L BUN 14 (9-20) mg/dL Creatinine 0.64 L (0.66-1.25) mg/dL Est GFR (CKD-EPI)AfAm >90 (>60 ml/min/1.73 sqM) Est GFR (CKD-EPI)NonAf >90 (>60 ml/min/1.73 sqM) Glucose 93 (74-99) mg/dL Calcium 9.6 (8.4-10.2) mg/dL Total Bilirubin 0.2 (0.2-1.3) mg/dL AST 24 (17-59) U/L ALT 25 (4-49) U/L Alkaline Phosphatase 88 (38-126) U/L Troponin I <0.012 (0.000-0.034) ng/mL Total Protein 7.2 (6.3-8.2) g/dL Albumin 4.5 (3.5-5.0) g/dL Disposition <Kd March - Last Filed: 08/21/22 16:43> Is patient prescribed a controlled substance at d/c from ED?: No <Antonio Medrano - Last Filed: 08/24/22 22:00> Clinical Impression: Psychosis, Auditory hallucinations, FRANCIA (generalized anxiety disorder), Depression Disposition: HOME SELF-CARE Condition: Fair Instructions (If sedation given, give patient instructions): Mood Disorders (ED), Brief Psychotic Disorder (ED) Referrals: None,Stated [Primary Care Provider] - 1-2 days
--- NOTE | 2022-08-21 16:40 | XR ---
EXAMINATION TYPE: XR chest 2V DATE OF EXAM: 08/21/2022 4:24 PM COMPARISON: Chest radiographs from 08/15/2022 TECHNIQUE: XR chest 2V Frontal and lateral views of the chest. CLINICAL INDICATION:Male, 22 years old with history of syncope; FINDINGS: Lungs/Pleura: There is no evidence of pleural effusion, focal consolidation, or pneumothorax. Pulmonary vascularity: Unremarkable. Heart/mediastinum: Cardiomediastinal silhouette is unremarkable. Musculoskeletal: No acute osseous pathology. IMPRESSION: No acute cardiopulmonary disease/process.
[2022-08-21 16:58] LABS: Platelet Count 112 k/uL (150-450)
[2022-08-21 18:06] LABS: ALT 25 U/L (4-49); AST 24 U/L (17-59); African American GFR (CKD) >90 (>60 ml/min/1.73 sqM); Albumin 4.5 g/dL (3.5-5.0); Alkaline Phosphatase 88 U/L (38-126); Anion Gap 11 mmol/L; Blood Urea Nitrogen 14 mg/dL (9-20); Calcium 9.6 mg/dL (8.4-10.2); Carbon Dioxide 25 mmol/L (22-30); Chloride 104 mmol/L (98-107); Glucose 93 mg/dL (74-99); Non-African American GFR(CKD) >90 (>60 ml/min/1.73 sqM); Potassium 4.5 mmol/L (3.5-5.1); Sodium 140 mmol/L (137-145); Total Bilirubin 0.2 mg/dL (0.2-1.3); Total Protein 7.2 g/dL (6.3-8.2)
== END 2022-08-22 01:14 | disposition home or self-care (01) ==
LOC: EC 13:15
DX: F29 Unspecified psychosis not due to a substance or known physiological condition (principal); F41.1 Generalized anxiety disorder; F31.9 Bipolar disorder, unspecified; F17.200 Nicotine dependence, unspecified, uncomplicated; F12.90 Cannabis use, unspecified, uncomplicated; Z91.048 Other nonmedicinal substance allergy status
CPT/HCPCS: 36415; 71046; 80053; 84484; 85025; 93005; 99284

== ENCOUNTER 2022-08-24 00:01 | Inpatient (IN) | payer MEDICAID, OTHER ==
--- NOTE | 2022-08-24 00:33 | ED ---
Psych HPI - General Chief Complaint: Psychiatric Symptoms Stated Complaint: Mental health Time Seen by Provider: 08/24/22 00:30 Source: patient, RN notes reviewed, old records reviewed Mode of arrival: ambulatory - History of Present Illness Initial Comments: This is a 22-year-old male DF for evaluation patient comes in for psychiatric evaluation and treatment. Patient has history of psychiatric illness and states he wants to hang himself specifically hang himself to kill himself knee with us in the bathroom. MD Complaint: suicidal ideation, feels depressed -: unknown Associated Psychiatric Symptoms: depression, suicidal ideation History of same: Yes Quality: constant Improves With: none Worsens With: none Context: significant life stressor Associated Symptoms: denies other symptoms Treatments Prior to Arrival: placed on mental health hold If Self Harm: admits thoughts of self harm, has plan - Related Data Previous Rx's Medication Instructions Recorded Loratadine [Claritin] 10 mg PO DAILY 15 Days tab 08/19/22 Benzocaine 20 % Gel [Orajel] 1 applic MM DAILY PRN 7 Days each 08/28/22 Melatonin 5 mg PO HS 30 Days tab 08/28/22 Nicotine Gum (Polacrilex) 2 mg BUCCAL Q4HR PRN 15 Days 08/28/22 [Nicorette] pieceofgum QUEtiapine [SEROquel] 200 mg PO HS 30 Days tab 08/28/22 Sertraline [Zoloft] 150 mg PO HS 30 Days tab 08/28/22 Allergies Allergy/AdvReac Type Severity Reaction Status Date / Time nickel Allergy Rash/Hives Verified 08/24/22 00:07 Review of Systems ROS Statement: Those systems with pertinent positive or pertinent negative responses have been documented in the HPI. ROS Other: All systems not noted in ROS Statement are negative. Past Medical History Past Medical History: No Reported History History of Any Multi-Drug Resistant Organisms: None Reported Past Surgical History: No Surgical Hx Reported Past Psychological History: Bipolar, Depression Smoking Status: Current every day smoker Past Alcohol Use History: None Reported Past Drug Use History: Marijuana - Past Family History family Additional Family Medical History / Comment(s): no reported cancer or heart disease General Exam Limitations: no limitations General appearance: alert, in no apparent distress Head exam: Present: atraumatic, normocephalic, normal inspection Eye exam: Present: normal appearance, PERRL, EOMI. Absent: scleral icterus, conjunctival injection, periorbital swelling ENT exam: Present: normal exam, mucous membranes moist Neck exam: Present: normal inspection. Absent: tenderness, meningismus, lymphadenopathy Respiratory exam: Present: normal lung sounds bilaterally. Absent: respiratory distress, wheezes, rales, rhonchi, stridor Cardiovascular Exam: Present: regular rate, normal rhythm, normal heart sounds. Absent: systolic murmur, diastolic murmur, rubs, gallop, clicks GI/Abdominal exam: Present: soft, normal bowel sounds. Absent: distended, tenderness, guarding, rebound, rigid Extremities exam: Present: normal inspection, full ROM, normal capillary refill. Absent: tenderness, pedal edema, joint swelling, calf tenderness Back exam: Present: normal inspection Neurological exam: Present: alert, oriented X3, CN II-XII intact Psychiatric exam: Present: normal affect, normal mood Skin exam: Present: warm, dry, intact, normal color. Absent: rash Course Vital Signs 08/24/22 00:03 Temperature 98.2 F Pulse Rate 68 Respiratory 16 Rate Blood Pressure 140/91 O2 Sat by Pulse 99 Oximetry - Reevaluation(s) Reevaluation #1: Medical record is reviewed Patient's medically clear for psychiatric evaluation Medical Decision Making - Medical Decision Making 22 male to the emergency department for evaluation patient comes in for psychiatric evaluation and treatment patient be admitted for psychiatric evaluation and treatment - Lab Data Lab Results 08/24/22 08/24/22 08/24/22 Range/Units 02:34 02:34 02:35 TSH 3.400 (0.465-4.680) mIU/L Urine Opiates Screen Not Detected (NotDetected) Ur Oxycodone Screen Not Detected (NotDetected) Urine Methadone Screen Not Detected (NotDetected) Ur Propoxyphene Screen Not Detected (NotDetected) Ur Barbiturates Screen Not Detected (NotDetected) U Tricyclic Antidepress Not Detected (NotDetected) Ur Phencyclidine Scrn Not Detected (NotDetected) Ur Amphetamines Screen Not Detected (NotDetected) U Methamphetamines Scrn Not Detected (NotDetected) U Benzodiazepines Scrn Not Detected (NotDetected) Urine Cocaine Screen Not Detected (NotDetected) U Marijuana (THC) Screen Not Detected (NotDetected) Coronavirus (PCR) Not Detected (Not Detectd) Disposition Clinical Impression: Auditory hallucinations, Psychosis, Major depressive disorder, recurrent severe without psychotic features, Suicidal ideation, Depression Disposition: TRANSFER TO PSYCH HOSP/UNIT Condition: Stable Is patient prescribed a controlled substance at d/c from ED?: No
[2022-08-24 03:00] LABS: Amphetamine Screen,Urine Not Detected (NotDetected); Barbiturate Screen,Urine Not Detected (NotDetected); Benzodiazepines Screen,Urine Not Detected (NotDetected); Cocaine Screen,Urine Not Detected (NotDetected); Methadone Screen, Urine Not Detected (NotDetected); Opiate Screen,Urine Not Detected (NotDetected); Oxycodone Screen, Urine Not Detected (NotDetected); Phencyclidine Screen,Urine Not Detected (NotDetected); Tricyclic Antidepressant,Urine Not Detected (NotDetected); Urn Cannabinoid Scrn Not Detected (NotDetected)
[2022-08-24] MEDS ORDERED: MAGNESIUM HYDROXIDE 2,400 MG/10 ML CUP PO PRN (03:26)
[2022-08-24] MEDS ORDERED: ACETAMINOPHEN TAB 325 MG TAB PO PRN (03:26)
[2022-08-24] MEDS ORDERED: HALOPERIDOL LACTATE 5 MG/ML 1 ML VIAL IM PRN (03:26)
[2022-08-24] MEDS ORDERED: LORazepam 1 MG TAB PO PRN (03:26)
[2022-08-24] MEDS ORDERED: MAG HYDROX/AL HYDROX/SIMETH 355 ML BOTTLE PO PRN (03:26)
[2022-08-24] MEDS ORDERED: LORazepam 2 MG/ML INJ IM PRN (03:30)
[2022-08-24] MEDS ORDERED: haloperidoL 5 MG TAB PO PRN (03:30)
[2022-08-24] MEDS ORDERED: LORATADINE 10 MG TAB PO SCH (09:00)
[2022-08-24] MEDS: NICOTINE 14MG/24HR PATCH TRANSDERM SCH (09:31)
[2022-08-24] MEDS ORDERED: BENZOCAINE 20 % GEL 11.9 GM TUBE MM SCH (10:15)
--- NOTE | 2022-08-24 11:42 | P.HP ---
Psychiatric H&P - . H&P Date: 08/24/22 History & Physical: Allergies Allergy/AdvReac Type Severity Reaction Status Date / Time nickel Allergy Rash/Hives Verified 08/24/22 00:07 Vital Signs Temp 98.1 F 08/24/22 04:43 Pulse 59 L 08/24/22 04:43 Resp 18 08/24/22 04:43 BP 137/91 08/24/22 04:43 Pulse Ox 97 08/24/22 04:43 FiO2 Intake & Output 08/23/22 08/24/22 08/24/22 18:59 06:59 18:59 Weight 100.924 kg Laboratory Last Values TSH 3.400 mIU/L (0.465-4.680) 08/24/22 02:34 Urine Opiates Screen Not Detected (NotDetected) 08/24/22 02:35 Ur Oxycodone Screen Not Detected (NotDetected) 08/24/22 02:35 Urine Methadone Screen Not Detected (NotDetected) 08/24/22 02:35 Ur Propoxyphene Screen Not Detected (NotDetected) 08/24/22 02:35 Ur Barbiturates Screen Not Detected (NotDetected) 08/24/22 02:35 U Tricyclic Antidepress Not Detected (NotDetected) 08/24/22 02:35 Ur Phencyclidine Scrn Not Detected (NotDetected) 08/24/22 02:35 Ur Amphetamines Screen Not Detected (NotDetected) 08/24/22 02:35 U Methamphetamines Scrn Not Detected (NotDetected) 08/24/22 02:35 U Benzodiazepines Scrn Not Detected (NotDetected) 08/24/22 02:35 Urine Cocaine Screen Not Detected (NotDetected) 08/24/22 02:35 U Marijuana (THC) Screen Not Detected (NotDetected) 08/24/22 02:35 Coronavirus (PCR) Not Detected (Not Detectd) 08/24/22 02:34 08/24/22 08:49 IDENTIFYING DATA: Patient is a single, unemployed, 22-year-old [place] male who is presenting with suicidal ideation and hx of substance use. HPI: Patient presents to the ED from [facility] with suicidal ideation with plan to walk out into traffic and after having attempted to choke himself in the bathroom. He reported that triggers included missing his family and grieving the absence of his child. Patient was most recently admitted at [facility] from August 16, 2022 until 08/19/2022 for similar reason. He was discharged on the Zoloft 100 mg and Seroquel 150 mg and was to follow up with [facility]. Patient was seen in interview room this morning. He states he has a 3 year old son who lives with his mother and he does not get to see his son. He is upset he is unable to see his son over Shani. He says his rights became suspended because he is unable to pay child support. He reports compliance with Zoloft 100 mg and Seroquel 150 mg. He says he did not attend appointment at [facility] because he forgot. He has been having suicidal ideation for the past 2 days, leading to choking himself in the bathroom. He reports having depressed mood for the past 2 years, with hopelessness. He reports feeling back of motivation and anhedonia. He sleeps 3 hours at night even with Seroquel and low energy. He endorses psychomotor retardation for the past 2 months. Patient also acknowledges that he began to use methamphetamine in 2019 and cocaine in 2020 but has been sober of these recently due to being on probation. He says he saw his mother having many boyfriends coming and going through her life. He felt hurt when they left when he was hoping to connect with them. He worries about others leaving him. Patient does not have insight into his impulsive behavior that resulted in incarceration. He endorses feeling distrustful of others. He reports feeling disappointed in himself for not being "good enough". In psychiatric review of systems, patient denies symptoms of anxiety and those consistent with eloisa. Denies auditory and visual hallucinations, homicidal ideation, as asked and assessed. PSYCH HX: Patient states that he is diagnosed with FRANCIA and MDD. Med hx: Trazodone 150 mg QHS did not help with sleep. He stopped the Prozac because it wasn't helping. He previously took Zyprexa, [place], Abilify. Currently on Zoloft and Seroquel and denies side effects Previous psychiatric hospitalizations: 9 times, with most recent being at [facility] from 08/16/22-08/19/22 for SI. Psychiatric outpatient follow-up: [facility] - patient did not attend appointment He has a history of "a handful of times", most recently in January 2022 via fentanyl overdose (pt says this was unintentional). PMH: Denies chronic medical issues ALLERGIES: NKDA PCP: Denies Head injuries: Denies Seizures: Denies SUBSTANCE HX: Alcohol: Denies Cocaine: Started using in Sep 2020. Peak use: Smoking a handful a day. Last use was January 2022 due to being incarcerated and on probation Methamphetamine: Started in Aug 2020. Smoking 2 grams daily for the past 2 years. Most recent use was 08/14/22. Suboxone and Fentanyl once in the past. Fentanyl use resulted in unintentional OD. Tobacco: 0.25 ppd Cannabis: Occasional Denies using other substances SOCIAL/LEGAL HX: Patient was born and raised in [place], [place]. He grew up with mother and 6 siblings. He says his father was not involved in their care and left his mother. Patient was 4 years old when parents were . Patient's mother lives in [place] now. He has been staying in [place], [place] for the past 7 years off and on. He reports a 10th grade education. He was incarcerated for 6 months due to unpaid child support and 3 months for burglary; currently lives at [facility]. He has one 3-year-old son who currently lives in [place]. He does not talk to the mother of his child. No other children. 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 Not on SSI. He denies any source of income at this time; is trying to find a job. FAM PSYCH HX: Sister: depression Suicide attempts: Sister DEVELOPMENT: Born via . He was behind on Math and Science in school. MENTAL STATUS EXAM: General Appearance: Patient appears to be older than stated age is alert, directable, and attempts to cooperate. Patient appears to have poor hygiene and grooming. Behavior: Patient is seated without any agitated behavior. Calm, withdrawn Speech: Quick brief responses with less elaboration even when asked Mood/Affect: Patient reports their mood is depressed, affect is congruent and constricted. Suicidality/Homicidality: Patient denies having any homicidal ideation intent or plan. Endorses suicidal ideation Perceptions: Patient denies any visual hallucinations and denies any auditory hallucinations Though content/process: There is no evidence of any delusional thought content and thought process is linear and goal-directed. Memory and concentration: AOX3, grossly intact for the purposes of this session. Can spell "WORLD" backwards Judgment and insight: poor and impulsive STRENGTHS/WEAKNESSES: Strength is medication compliance. Weakness is poor social support INTELLECT: average IMPRESSIONS: Major depressive disorder, recurrent, severe, without psychotic features Methamphetamine use disorder, severe Cocaine use disorder, in early remission Tobacco use disorder, mild Cannabis use disorder, mild Cluster B traits - likely BPD PLAN: -Patient is admitted under voluntary status to [facility]HU for stabilization of psychiatric symptoms and safety. Patient signed adult voluntary form and medication consent and is placed in patient's chart. -Medications: - Continue Zoloft 100 mg daily for mood - was increased recently - Increase Seroquel to 200 mg qHS for augmentation of mood and sleep - Add melatonin 5 mg qHS for sleep -Haldol PRN for agitation -Patient was counselled on substance abuse and desired to cut back on use. Motivational interviewing. -Patient was informed of the risks, benefits and side effects of the medication and patient verbally consented to taking the medications. Patient signed med consent form and was placed in chart. -Internal Medicine consult to perform medical evaluation and physical. -SW on board for discharge planning. Encourage patient to participate in groups to work on coping skills. 08/24/22 09:43 08/24/22 11:25
[2022-08-24] MEDS: BENZOCAINE 20 % GEL 11.9 GM TUBE MM PRN ×2 (13:14→19:46)
[2022-08-24] MEDS: NICOTINE GUM (POLACRILEX) 2 MG GUM BUCCAL PRN (20:40)
[2022-08-24] MEDS: MELATONIN 5 MG TABLET PO SCH (20:40)
[2022-08-24] MEDS: QUEtiapine 200 MG TAB PO SCH (20:40)
[2022-08-24] MEDS ORDERED: QUEtiapine 50 MG TAB PO SCH (21:00)
[2022-08-24] MEDS ORDERED: SERTRALINE 100 MG TAB PO SCH (21:00)
--- NOTE | 2022-08-25 02:32 | P.PN ---
Progress Note - Text Progress Note Date: 08/24/22 Attempted to see the patient in the mental health unit at 2100 on 08/24. The patient refused to be seen or be evaluated.
[2022-08-25] MEDS: NICOTINE 14MG/24HR PATCH TRANSDERM SCH (09:36)
--- NOTE | 2022-08-25 11:40 | P.PN ---
Progress Note - Text Progress Note Date: 08/25/22 Interval History: Patient was seen resting in bed and was directable and agreeable to speak with the copywriter in his room. Currently he does endorse suicidal ideation however is denying any homicidal ideation, intention, and/or plan. He is not reporting any auditory or visual hallucinations. He reports that he is feeling increasingly depressed due to the holidays and his inability to see his family. He has been in adherent with his medication and is not reporting any symptoms can side effects. He reports a strong desire to just stay in bed and not do anything. He endorses feelings of hopelessness and helplessness. He denies any issues regarding his sleep or his appetite. He is in agreement for further titration of his antidepressant medication. Mental Status Exam: General Appearance: Patient appears to be stated age is alert, directable, and cooperative. Behavior: Patient is calmly seated without any agitated behavior. Speech: Patient's speech is fluent and nonpressured. Mood/Affect: Mood is improving mildly, affect is congruent and blunted/withdrawn Suicidality/Homicidality: Patient endorses suicidal ideation however denies any homicidal ideation. Perceptions: Patient denies any visual hallucinations and denies any auditory hallucinations Though content/process: There is no evidence of any delusional thought content and thought process is linear and goal-directed. Memory and concentration: AOX3, grossly intact for the purposes of this session Judgment and insight: Improving mildly Vital Signs Temp 98.1 F 08/24/22 04:43 Pulse 59 L 08/24/22 04:43 Resp 18 08/24/22 04:43 BP 137/91 08/24/22 04:43 Pulse Ox 97 08/24/22 04:43 FiO2 Assessment Major depressive disorder, recurrent, severe, without psychotic features Methamphetamine use disorder, severe Cocaine use disorder, in early remission Tobacco use disorder, mild Cannabis use disorder, mild Cluster B traits - likely BPD Plan: -Patient continues to meet criteria for inpatient psychiatric admission for symptom stabilization and safety. Patient has signed adult voluntary form and medication consent and was placed in patient's chart. -Medications: Increase Zoloft 150 mg by mouth at bedtime for depression/anxiety Continue Seroquel 200 daily at bedtime for mood augmentation Melatonin 5 mg by mouth at bedtime for insomnia -When necessary Ativan and Haldol for agitation/aggression. -NRT - nicotine patch -SW on board for discharge planning. Encouraged the patient to participate in milieu.
[2022-08-25] MEDS: NICOTINE GUM (POLACRILEX) 2 MG GUM BUCCAL PRN ×2 (17:11→20:48)
[2022-08-25] MEDS: BENZOCAINE 20 % GEL 11.9 GM TUBE MM PRN (19:38)
[2022-08-25] MEDS: SERTRALINE 50 MG TAB PO SCH (20:46)
[2022-08-25] MEDS: QUEtiapine 200 MG TAB PO SCH (20:47)
[2022-08-25] MEDS: MELATONIN 5 MG TABLET PO SCH (20:47)
--- NOTE | 2022-08-26 03:25 | P.PN ---
Progress Note - Text Progress Note Date: 08/26/22 Attempted to see the patient in the mental health unit at 2200 on 08/25. The patient refused to be seen or be evaluated.
[2022-08-26 06:54] VITALS: RESP 16; TEMP 97.9
[2022-08-26] MEDS: NICOTINE 14MG/24HR PATCH TRANSDERM SCH (08:33)
--- NOTE | 2022-08-26 10:09 | P.PN ---
Progress Note - Text Progress Note Date: 08/26/22 Interval History: Patient was seen resting in bed and was directable and agreeable to speak with the job specification writer in his room. Currently he does endorse suicidal ideation however states that they are "fleeting." He denies any homicidal ideation. He reports no auditory or visual hallucinations. He reports no paranoia or other delusions. He has been adherent with his medications and is not endorsing any side effects. He continues to endorse significant symptoms of depression including hopelessness, helplessness, and psychomotor slowing. He was encouraged to attend groups. No medical issues or cocerns endorsed. Mental Status Exam: General Appearance: Patient appears to be stated age is alert, directable, and cooperative. Behavior: Patient is calmly seated without any agitated behavior. Speech: Patient's speech is fluent and nonpressured. Mood/Affect: Mood is improving mildly, affect is congruent and blunted/withdrawn Suicidality/Homicidality: Patient endorses suicidal ideation however denies any homicidal ideation. Perceptions: Patient denies any visual hallucinations and denies any auditory hallucinations Though content/process: There is no evidence of any delusional thought content and thought process is linear and goal-directed. Memory and concentration: AOX3, grossly intact for the purposes of this session Judgment and insight: Improving mildly Vital Signs Temp 97.9 F 08/25/22 08:00 Pulse 62 08/25/22 08:00 Resp 16 08/25/22 08:00 BP 121/53 08/25/22 08:00 Pulse Ox 94 L 08/25/22 08:00 FiO2 Assessment Major depressive disorder, recurrent, severe, without psychotic features Methamphetamine use disorder, severe Cocaine use disorder, in early remission Tobacco use disorder, mild Cannabis use disorder, mild Cluster B traits - likely BPD Plan: -Patient continues to meet criteria for inpatient psychiatric admission for symptom stabilization and safety. Patient has signed adult voluntary form and medication consent and was placed in patient's chart. -Medications: Increase Zoloft 200 mg by mouth at bedtime for depression/anxiety Continue Seroquel 200 daily at bedtime for mood augmentation Melatonin 5 mg by mouth at bedtime for insomnia -When necessary Ativan and Haldol for agitation/aggression. -NRT - nicotine patch -SW on board for discharge planning. Encouraged the patient to participate in milieu.
[2022-08-26] MEDS: NICOTINE GUM (POLACRILEX) 2 MG GUM BUCCAL PRN ×2 (17:11→21:33)
[2022-08-26] MEDS: BENZOCAINE 20 % GEL 11.9 GM TUBE MM PRN ×3 (18:41→21:33)
[2022-08-26] MEDS: SERTRALINE 50 MG TAB PO SCH (20:00)
[2022-08-26] MEDS: MELATONIN 5 MG TABLET PO SCH (20:00)
[2022-08-26] MEDS: QUEtiapine 200 MG TAB PO SCH (20:00)
--- NOTE | 2022-08-27 09:43 | P.PN ---
Progress Note - Text Progress Note Date: 08/27/22 Interval History: Patient was seen resting in bed and was directable and agreeable to speak with the story writer in his room. Currently he reports he is feeling better. He is denying any suicidal or homicidal ideation, intention, and/or plan. He reports no auditory or visual hallucinations. He denies any paranoia or other delusions. He states he has been eating well and sleeping well. He continues to endorse generalized feelings of loneliness and sadness due to the holiday season and his inability to be there with his family. He otherwise reports no other psychiatric issues or complaints. He reports no medical issues or concerns. Mental Status Exam: General Appearance: Patient appears to be stated age is alert, directable, and cooperative. Behavior: Patient is calmly seated without any agitated behavior. Speech: Patient's speech is fluent and nonpressured. Mood/Affect: Mood is improving mildly, affect is congruent and blunted/withdrawn Suicidality/Homicidality: Patient endorses suicidal ideation however denies any homicidal ideation. Perceptions: Patient denies any visual hallucinations and denies any auditory hallucinations Though content/process: There is no evidence of any delusional thought content and thought process is linear and goal-directed. Memory and concentration: AOX3, grossly intact for the purposes of this session Judgment and insight: Improving mildly Vital Signs Temp 97.9 F 08/25/22 08:00 Pulse 62 08/25/22 08:00 Resp 16 08/25/22 08:00 BP 121/53 08/25/22 08:00 Pulse Ox 94 L 08/25/22 08:00 FiO2 Assessment Major depressive disorder, recurrent, severe, without psychotic features Methamphetamine use disorder, severe Cocaine use disorder, in early remission Tobacco use disorder, mild Cannabis use disorder, mild Cluster B traits - likely BPD Plan: -Patient continues to meet criteria for inpatient psychiatric admission for symptom stabilization and safety. Patient has signed adult voluntary form and medication consent and was placed in patient's chart. -Medications: Continue Zoloft 200 mg by mouth at bedtime for depression/anxiety Continue Seroquel 200 daily at bedtime for mood augmentation Melatonin 5 mg by mouth at bedtime for insomnia -When necessary Ativan and Haldol for agitation/aggression. -NRT - nicotine patch -SW on board for discharge planning. Encouraged the patient to participate in milieu.
[2022-08-27] MEDS: NICOTINE 14MG/24HR PATCH TRANSDERM SCH (11:04)
[2022-08-27] MEDS: NICOTINE GUM (POLACRILEX) 2 MG GUM BUCCAL PRN ×2 (13:02→17:59)
[2022-08-27] MEDS: BENZOCAINE 20 % GEL 11.9 GM TUBE MM PRN (13:02)
[2022-08-27] MEDS: MELATONIN 5 MG TABLET PO SCH (20:34)
[2022-08-27] MEDS: QUEtiapine 200 MG TAB PO SCH (20:34)
[2022-08-27] MEDS: SERTRALINE 50 MG TAB PO SCH (20:34)
[2022-08-28 06:47] VITALS: BP 105/51; PULSE 59
[2022-08-28] MEDS: NICOTINE GUM (POLACRILEX) 2 MG GUM BUCCAL PRN (07:46)
[2022-08-28] MEDS: NICOTINE 14MG/24HR PATCH TRANSDERM SCH (09:05)
--- NOTE | 2022-08-28 11:20 | P.DS ---
Providers Date of admission: 08/24/22 03:23 Expected date of discharge: 08/28/22 Attending physician: Ryan Anthony MD Consults: 08/24/22 03:26 Consult Physician Routine Consulting Provider: Lara Bautista Consult Reason/Comments: H&P for mental health admission Do you want consulting provider notified?: Yes Primary care physician: Stated None - Discharge Diagnosis(es) (1) Major depressive disorder, recurrent severe without psychotic features Current Visit: Yes Status: Acute Priority: High (2) Cluster B personality disorder Current Visit: Yes Status: Chronic Priority: Medium (3) Tobacco use disorder Current Visit: Yes Status: Chronic Priority: Medium (4) Stimulant use disorder Current Visit: No Status: Suspected Priority: Low Hospital Course: Admission HPI: Initial psychiatric evaluation was completed by Dr. Stewart on 08/24/2022 who wrote: "Patient is a single, unemployed, 22-year-old [place] male who is presenting with suicidal ideation and hx of substance use. HPI: Patient presents to the ED from [facility] with suicidal ideation with plan to walk out into traffic and after having attempted to choke himself in the bathroom. He reported that triggers included missing his family and grieving the absence of his child. Patient was most recently admitted at [facility] from August 16, 2022 until 08/19/2022 for similar reason. He was discharged on the Zoloft 100 mg and Seroquel 150 mg and was to follow up with [facility]. Patient was seen in interview room this morning. He states he has a 3 year old son who lives with his mother and he does not get to see his son. He is upset he is unable to see his son over [place]. He says his rights became suspended because he is unable to pay child support. He reports compliance with Zoloft 100 mg and Seroquel 150 mg. He says he did not attend appointment at [facility] because he forgot. He has been having suicidal ideation for the past 2 days, leading to choking himself in the bathroom. He reports having depressed mood for the past 2 years, with hopelessness. He reports feeling back of motivation and anhedonia. He sleeps 3 hours at night even with Seroquel and low energy. He endorses psychomotor retardation for the past 2 months. Patient also acknowledges that he began to use methamphetamine in 2019 and cocaine in 2020 but has been sober of these recently due to being on probation. He says he saw his mother having many boyfriends coming and going through her life. He felt hurt when they left when he was hoping to connect with them. He worries about others leaving him. Patient does not have insight into his impulsive behavior that resulted in incarceration. He endorses feeling distrustful of others. He reports feeling disappointed in himself for not being "good enough". In psychiatric review of systems, patient denies symptoms of anxiety and those consistent with eloisa. Denies auditory and visual hallucinations, homicidal ideation, as asked and assessed." Hospital course: Upon admission to the unit patient was initially presenting as withdrawn and endorsing suicidal ideation. Patient was however directable and agreeable to commence treatment. Patient got along well with other patients on the unit and followed unit protocol. Patient was compliant with the medications and denied any side effects throughout hospital course. Patient was started on Zoloft for depression and Seroquel for mood augmentation and insomnia. The plan was added to his regimen for sleep. Patient spoke of his stressors and engaged in therapy both group and individual although preferred to remain isolative to himself in his room. Patient was also seen by medical team for history and physical exam. Throughout the course of the hospitalization patient gradually improved with regards to his mood. He however expresses a preference to stay in the hospital rather than return to his detention. He does express boredom at his detention. On the day of discharge, the patient is not reporting any suicidal or homicidal ideation, intention, and/or plan. Not reporting any auditory or visual hallucinations. He is denying any paranoia or other delusions. He then states that he would like to go to rehab for substance abuse however was informed that he may choose to go to rehab from [facility] and not from this hospital as he no longer meets criteria for continued inpatient psychiatric hospitalization. The patient was counseled at length and reports medication adherence and appropriate outpatient follow-up. He was also counseled on the importance of abstaining from all substances including alcohol and marijuana. Supportive psychotherapy was provided to the patient in regards to his feelings of loneliness over the holidays. Safety planning didn't occur prior to discharge. No medical issues or concerns are presented during the discharge assessment. Mental status exam: General Appearance: Patient appears to be stated age is alert, pleasant, and cooperative. Patient is in no acute distress and has fair hygiene and grooming Behavior: Patient is calmly lying down in bed without any agitated behavior Speech: Patient's speech is fluent and nonpressured. Mood/Affect: Patient reports their mood is "doing okay but I think I want to stay", affect is congruent and euthymic. Constricted. Suicidality/Homicidality: Patient denies having any suicidal or homicidal ideation intent or plan. Perceptions: Patient denies any auditory or visual hallucinations. Though content/process: There is no evidence of any delusional thought content and thought process is linear and goal-directed. Memory and concentration: AOX3, grossly intact for the purposes of this session. Can spell "WORLD" backwards correctly. Judgment and insight: Improved with guarded prognosis Impression: Major depressive disorder, recurrent, severe, without psychotic features Methamphetamine use disorder Cocaine use disorder, in early remission Tobacco use disorder, mild Cannabis use disorder, mild Cluster B personality disorder Plan: -Continue with discharge today as patient has improved and stabilized psyc hiatrically and is not currently an imminent threat to himself and/or others. Patient remain at chronically elevated risk due to his substance abuse -Continue medications: Nicorette gum for nicotine cravings Zoloft 150 mg by mouth at bedtime for depression/anxiety Melatonin 5 mg by mouth at bedtime for insomnia Seroquel 200 mg by mouth at bedtime for mood stabilization -Patient was counseled on the need for medication compliance and appropriate follow-up at mental health and also primary care for medical issues. Patient verbalized understanding and agreed. -Social work to arrange for and conduct family meeting to ensure safety upon discharge and answer any questions/concerns. Social work also to arrange for patients follow up appointments with [facility] for psychiatric care along with follow up with primary care provider. -Patient counseled on abstaining from recreational drugs and marijuana and alcohol. Was informed/educated on the adverse effects on their physical and mental health. Patient verbally agreed and understood. Patient would like to pursue inpatient substance abuse rehabilitation in the outpatient setting. -Patient was instructed to return to the hospital or seek immediate medical care if their psychiatric or medical symptoms do worsen or reoccur. -Psychoeducation and supportive therapy provided to patient. Risks and benefits of pharmacological treatment versus the risks and benefits of nontreatment weight and discussed. Informed consent discussion held. Common side effects of psychotropics discussed such as, but not limited to headache, GI disturbance, sexual dysfunction, movement disorders, sedation, and orthostatic hypotension. Life threatening and blackbox warnings of prescribed medications also discussed. Potential risks of operating a vehicle or heavy machinery discussed with patient at length. Advised on importance of compliance and a reliable and responsible manner. Patient advised to review FDA consumer labeling of all medications prior to taking. Patient verbalized understanding of potential risks, and agrees with current treatment plan. Patient advised to medically contact physician/emergency personnel if any acute changes in condition occur. Vital Signs Temp 97.9 F 08/28/22 06:47 Pulse 59 L 08/28/22 06:47 Resp 16 08/28/22 06:47 BP 105/51 08/28/22 06:47 Pulse Ox 99 08/28/22 06:47 FiO2 Laboratory Results TSH 3.400 mIU/L (0.465-4.680) 08/24/22 02:34 Urine Opiates Screen Not Detected (NotDetected) 08/24/22 02:35 Ur Oxycodone Screen Not Detected (NotDetected) 08/24/22 02:35 Urine Methadone Screen Not Detected (NotDetected) 08/24/22 02:35 Ur Propoxyphene Screen Not Detected (NotDetected) 08/24/22 02:35 Ur Barbiturates Screen Not Detected (NotDetected) 08/24/22 02:35 U Tricyclic Antidepress Not Detected (NotDetected) 08/24/22 02:35 Ur Phencyclidine Scrn Not Detected (NotDetected) 08/24/22 02:35 Ur Amphetamines Screen Not Detected (NotDetected) 08/24/22 02:35 U Methamphetamines Scrn Not Detected (NotDetected) 08/24/22 02:35 U Benzodiazepines Scrn Not Detected (NotDetected) 08/24/22 02:35 Urine Cocaine Screen Not Detected (NotDetected) 08/24/22 02:35 U Marijuana (THC) Screen Not Detected (NotDetected) 08/24/22 02:35 Coronavirus (PCR) Not Detected (Not Detectd) 08/24/22 02:34 Allergies Allergy/AdvReac Type Severity Reaction Status Date / Time nickel Allergy Rash/Hives Verified 08/24/22 00:07 Patient Condition at Discharge: Stable Plan - Discharge Summary New Discharge Prescriptions: New Nicotine Gum (Polacrilex) [Nicorette] 2 mg BUCCAL Q4HR PRN 15 Days pieceofgum PRN Reason: Nicotine Cravings Benzocaine 20 % Gel [Orajel] 1 applic MM DAILY PRN 7 Days each PRN Reason: Toothache Sertraline [Zoloft] 150 mg PO HS 30 Days tab Melatonin 5 mg PO HS 30 Days tab QUEtiapine [SEROquel] 200 mg PO HS 30 Days tab Continue Loratadine [Claritin] 10 mg PO DAILY 15 Days tab Discontinued Sertraline [Zoloft] 100 mg PO HS 15 Days tab QUEtiapine [SEROquel] 150 mg PO HS 15 Days tab Discharge Medication List Loratadine [Claritin] 10 mg PO DAILY 15 Days tab 08/19/22 [Rx] Benzocaine 20 % Gel [Orajel] 1 applic MM DAILY PRN 7 Days each 08/28/22 [Rx] Melatonin 5 mg PO HS 30 Days tab 08/28/22 [Rx] Nicotine Gum (Polacrilex) [Nicorette] 2 mg BUCCAL Q4HR PRN 15 Days pieceofgum 08/28/22 [Rx] QUEtiapine [SEROquel] 200 mg PO HS 30 Days tab 08/28/22 [Rx] Sertraline [Zoloft] 150 mg PO HS 30 Days tab 08/28/22 [Rx] Follow up Appointment(s)/Referral(s): [facility] [Outside] - 09/02/22 11:00 am (intake) [facility] [NON-STAFF] - 1-2 Days Patient Instructions/Handouts: How to Stop Smoking (DC), Depression (DC), Generalized Anxiety Disorder (GEN), Abuse of Alcohol (DC), Psychotic Disorder (DC), Suicide Prevention (DC) Activity/Diet/Wound Care/Special Instructions: Avoid the use of street drugs and alcohol. Take all prescriptions as prescribed. When you are in need of refills on your medications, please contact your medical provider and/or outpatient psychiatrist to have this done. Please go to scheduled outpatient appointment for aftercare treatment. If symptoms return or become worse, call the crisis line at and/or go to the nearest emergency room for evaluation Discharge Disposition: HOME SELF-CARE
== END 2022-08-28 13:10 | disposition home or self-care (01) | DRG 885 ==
LOC: EC 00:01 → 3MHU 03:23
PROVIDERS: ADMIT Psychiatry & Neurology Psychiatry; ATTEND Psychiatry & Neurology Psychiatry
DX: F33.2 Major depressive disorder, recurrent severe without psychotic features (principal); R45.851 Suicidal ideations; F41.9 Anxiety disorder, unspecified; F60.89 Other specific personality disorders; G47.00 Insomnia, unspecified; Z79.899 Other long term (current) drug therapy; Z71.6 Tobacco abuse counseling; F17.210 Nicotine dependence, cigarettes, uncomplicated; Z20.822 Contact with and (suspected) exposure to COVID-19; Z28.21 Immunization not carried out because of patient refusal; Z56.0 Unemployment, unspecified; Z53.29 Procedure and treatment not carried out because of patient's decision for other reasons; F12.10 Cannabis abuse, uncomplicated; F14.11 Cocaine abuse, in remission; F15.10 Other stimulant abuse, uncomplicated
CPT/HCPCS: 36415; 80306; 82075; 84443; 87635; 99285

== ENCOUNTER 2022-09-10 23:35 | Inpatient (IN) | payer MEDICAID, OTHER ==
--- NOTE | 2022-09-11 01:54 | ED ---
Psych HPI - General Source: patient, RN notes reviewed, old records reviewed Mode of arrival: ambulatory - History of Present Illness MD Complaint: suicidal ideation, feels depressed -: unknown Associated Psychiatric Symptoms: depression, suicidal ideation History of same: Yes Quality: constant, getting worse Worsens With: none Context: significant life stressor Associated Symptoms: denies other symptoms Treatments Prior to Arrival: placed on mental health hold <Antonio Medrano - Last Filed: 09/11/22 02:58> <George Swain - Last Filed: 09/11/22 13:23> - General Chief Complaint: Psychiatric Symptoms Stated Complaint: mental health Time Seen by Provider: 09/11/22 01:47 - History of Present Illness Initial Comments: This Is a 22-year-old male to the emergency department for evaluation of severe depression severe sadness severe grief secondary to recent loss of father. Patient afraid he may hurt himself (Antonio Medraon) - Related Data Previous Rx's Medication Instructions Recorded Loratadine [Claritin] 10 mg PO DAILY 15 Days tab 08/19/22 Benzocaine 20 % Gel [Orajel] 1 applic MM DAILY PRN 7 Days each 08/28/22 Melatonin 5 mg PO HS 30 Days tab 08/28/22 Nicotine Gum (Polacrilex) 2 mg BUCCAL Q4HR PRN 15 Days 08/28/22 [Nicorette] pieceofgum QUEtiapine [SEROquel] 200 mg PO HS 30 Days tab 08/28/22 Sertraline [Zoloft] 150 mg PO HS 30 Days tab 08/28/22 Allergies Allergy/AdvReac Type Severity Reaction Status Date / Time nickel Allergy Rash/Hives Verified 09/10/22 23:50 Review of Systems ROS Other: All systems not noted in ROS Statement are negative. <Antonio Medrano - Last Filed: 09/11/22 02:58> ROS Other: All systems not noted in ROS Statement are negative. <George Swain - Last Filed: 09/11/22 13:23> ROS Statement: Those systems with pertinent positive or pertinent negative responses have been documented in the HPI. Past Medical History Past Medical History: No Reported History History of Any Multi-Drug Resistant Organisms: None Reported Past Surgical History: No Surgical Hx Reported Past Anesthesia/Blood Transfusion Reactions: No Reported Reaction Past Psychological History: Bipolar, Depression Smoking Status: Current every day smoker Past Alcohol Use History: None Reported Past Drug Use History: Marijuana - Past Family History family Additional Family Medical History / Comment(s): no reported cancer or heart disease <Antonio Medrano - Last Filed: 09/11/22 02:58> General Exam Limitations: no limitations General appearance: alert, in no apparent distress Head exam: Present: atraumatic, normocephalic, normal inspection Eye exam: Present: normal appearance, PERRL, EOMI. Absent: scleral icterus, conjunctival injection, periorbital swelling ENT exam: Present: normal exam, mucous membranes moist Neck exam: Present: normal inspection. Absent: tenderness, meningismus, lymphadenopathy Respiratory exam: Present: normal lung sounds bilaterally. Absent: respiratory distress, wheezes, rales, rhonchi, stridor Cardiovascular Exam: Present: regular rate, normal rhythm, normal heart sounds. Absent: systolic murmur, diastolic murmur, rubs, gallop, clicks GI/Abdominal exam: Present: soft, normal bowel sounds. Absent: distended, tenderness, guarding, rebound, rigid Extremities exam: Present: normal inspection, full ROM, normal capillary refill. Absent: tenderness, pedal edema, joint swelling, calf tenderness Back exam: Present: normal inspection Neurological exam: Present: alert, oriented X3, CN II-XII intact Psychiatric exam: Present: normal affect, normal mood Skin exam: Present: warm, dry, intact, normal color. Absent: rash <Antonio Medrano - Last Filed: 09/11/22 02:58> Course <Antonio Medrano - Last Filed: 09/11/22 02:58> Vital Signs 09/10/22 23:47 Temperature 97.5 F L Pulse Rate 80 Respiratory 16 Rate Blood Pressure 137/79 O2 Sat by Pulse 99 Oximetry - Reevaluation(s) Reevaluation #1: 09/11/22 02:59 Medical record is reviewed 09/11/22 02:59 Medical clear for psychiatric evaluation (Antonio Medrano) Medical Decision Making <George Swain - Last Filed: 09/11/22 13:23> - Medical Decision Making Patient was medically cleared by prior physician and is pending psychiatric evaluation. Patient was evaluated by EPS nose, and determined that he does meet inpatient criteria for psychiatric admission. Patient will be admitted to the inpatient psychiatric floor in stable condition. (George Swain) Disposition <Antonio Medrano - Last Filed: 09/11/22 02:58> <George Swain - Last Filed: 09/11/22 13:23> Clinical Impression: Encounter for psychiatric assessment Disposition: ADMITTED IP TO THIS HOSP Condition: Stable Referrals: None,Stated [Primary Care Provider] - 1-2 days
[2022-09-11] MEDS ORDERED: HALOPERIDOL LACTATE 5 MG/ML 1 ML VIAL IM PRN (15:34)
[2022-09-11] MEDS ORDERED: MAGNESIUM HYDROXIDE 2,400 MG/10 ML CUP PO PRN (15:34)
[2022-09-11] MEDS ORDERED: LORazepam 1 MG TAB PO PRN (15:34)
[2022-09-11] MEDS ORDERED: MAG HYDROX/AL HYDROX/SIMETH 30 ML CUP PO PRN (15:34)
[2022-09-11] MEDS ORDERED: ACETAMINOPHEN TAB 325 MG TAB PO PRN (15:34)
[2022-09-11] MEDS ORDERED: LORazepam 2 MG/ML INJ IM PRN (15:43)
[2022-09-11] MEDS ORDERED: haloperidoL 5 MG TAB PO PRN (15:44)
[2022-09-11] MEDS ORDERED: NICOTINE 14MG/24HR PATCH TRANSDERM STA (15:47)
[2022-09-11] MEDS: MELATONIN 5 MG TABLET PO SCH (20:28)
[2022-09-11] MEDS: QUEtiapine 100 MG TAB PO SCH (20:28)
[2022-09-11] MEDS ORDERED: SERTRALINE 50 MG TAB PO SCH (21:00)
--- NOTE | 2022-09-11 23:50 | P.CONS ---
History of Present Illness - Reason for Consult Consult date: 09/11/22 - History of Present Illness The patient is a 22-year-old male with a PMH of substance abuse who had percent to the emergency room with complaints of depression and suicidal ideation. The patient was admitted to the [facility] where he was seen and evaluated. The patient reports that he has been struggling with substance use including amphetamine with the last used roughly 5-6 days ago. He reports becoming depressed as CPS recently took away his 4-year-old boy. He states he is currently unemployed and is unable to care for her son. Denied alcohol use. Reports marijuana and tobacco use with half pack of cigarettes daily. Denied any physical complaints at the time of interview. Denied experiencing chest discomfort, shortness of breath, fever, chills, cough, nausea, vomiting, abdominal pain, diarrhea. Review of systems: Pertinent positives and negatives as discussed in HPI, a complete review of systems was performed and all other systems are negative. Physical examination: General: non toxic, no distress, appears at stated age, obese Derm: no unusual rashes/lesions, no unusual ecchymoses, warm, dry Head: atraumatic, normocephalic, symmetric Eyes: EOMI, no lid lag, anicteric sclera ENT: Nose and ears atraumatic, no thrush, no pharyngeal erythema Neck: trachea midline, supple Mouth: no lip lesion, mucus membranes moist Cardiovascular: S1S2 reg, no murmur, no edema Lungs: CTA bilateral, no rhonchi, no rales , no accessory muscle use Abdominal: soft, nontender to palpation, no guarding Ext: no gross muscle atrophy, no contractures, Neuro: No gross focal neuro deficits noted Psych: Alert, oriented, appropriate affect Assessment/plan Polysubstance abuse -Advised on importance of cessation Depression with suicidal ideation -As per psychiatry Thank you for allowing us to participate in the care of this patient. We will follow peripherally. Do not hesitate to contact us with questions. Someone can be reached from the [facility] hospitalist group at all hours of the day at [phone]. Past Medical History Past Medical History: No Reported History History of Any Multi-Drug Resistant Organisms: None Reported Past Surgical History: No Surgical Hx Reported Past Anesthesia/Blood Transfusion Reactions: No Reported Reaction Past Psychological History: Bipolar, Depression Smoking Status: Current every day smoker Past Alcohol Use History: None Reported Past Drug Use History: Cocaine, Marijuana, Methamphetamine Additional Drug Use History / Comment(s): Admits to relapsing 7 days ago after being sober. - Past Family History family Additional Family Medical History / Comment(s): no reported cancer or heart disease Medications and Allergies Home Medications Medication Instructions Recorded Confirmed Type Loratadine [Claritin] 10 mg PO DAILY 15 Days tab 08/19/22 09/11/22 Rx Benzocaine 20 % Gel [Orajel] 1 applic MM DAILY PRN 7 Days each 08/28/22 09/11/22 Rx Melatonin 5 mg PO HS 30 Days tab 08/28/22 09/11/22 Rx Nicotine Gum (Polacrilex) 2 mg BUCCAL Q4HR PRN 15 Days 08/28/22 09/11/22 Rx [Nicorette] pieceofgum QUEtiapine [SEROquel] 200 mg PO HS 30 Days tab 08/28/22 09/11/22 Rx Sertraline [Zoloft] 150 mg PO HS 09/11/22 09/11/22 History Allergies Allergy/AdvReac Type Severity Reaction Status Date / Time nickel Allergy Rash/Hives Verified 09/10/22 23:50 Physical Exam Vitals: Vital Signs Temp Pulse Pulse Resp BP BP Pulse Ox 09/11/22 16:34 98.5 F 58 L 16 126/70 98 09/10/22 23:47 97.5 F L 80 16 137/79 99 Intake and Output 09/11/22 09/11/22 09/12/22 14:59 22:59 06:59 Other: Weight 100.698 kg
[2022-09-12 10:29] LABS: Basophils # (A) 0.1 k/uL (0-0.2); Basophils % (A) 1 %; Eosinophils # (A) 0.2 k/uL (0-0.7); Eosinophils % (A) 2 %; HCT 43.5 % (39.0-53.0); HGB 15.2 gm/dL (13.0-17.5); Lymphocytes # (A) 2.4 k/uL (1.0-4.8); Lymphocytes % (A) 30 %; MCH 30.2 pg (25.0-35.0); MCHC 35.1 g/dL (31.0-37.0); Mean Platelet Volume 8.8; Monocytes # (A) 0.5 k/uL (0-1.0); Monocytes % (A) 7 %; Neutrophils # (A) 4.6 k/uL (1.3-7.7); Neutrophils % (A) 59 %; RBC 5.05 m/uL (4.30-5.90); RDW 12.5 % (11.5-15.5); WBC 7.9 k/uL (3.8-10.6)
[2022-09-12 10:30] LABS: ALT 18 U/L (4-49); AST 22 U/L (17-59); African American GFR (CKD) >90 (>60 ml/min/1.73 sqM); Albumin 4.1 g/dL (3.5-5.0); Alkaline Phosphatase 63 U/L (38-126); Anion Gap 4 mmol/L; Blood Urea Nitrogen 14 mg/dL (9-20); Calcium 9.1 mg/dL (8.4-10.2); Carbon Dioxide 30 mmol/L (22-30); Chloride 105 mmol/L (98-107); Glucose 93 mg/dL (74-99); Non-African American GFR(CKD) >90 (>60 ml/min/1.73 sqM); Potassium 4.5 mmol/L (3.5-5.1); Sodium 139 mmol/L (137-145); Total Bilirubin 0.6 mg/dL (0.2-1.3); Total Protein 6.7 g/dL (6.3-8.2)
[2022-09-12 10:36] LABS: Platelet Count 257 k/uL (150-450)
[2022-09-12] MEDS: MELATONIN 5 MG TABLET PO SCH (20:36)
[2022-09-12] MEDS: SERTRALINE 100 MG TAB PO SCH (20:38)
[2022-09-12] MEDS: QUEtiapine 100 MG TAB PO SCH (20:39)
--- NOTE | 2022-09-13 20:05 | P.PN ---
Progress Note - Text Progress Note Date: 09/13/22 Interval history: Patient was seen playing cards in the lounge with peers and was directable and agreeable to speak with insurance underwriter sales. He reports his mood is better today but he did not sleep well last night. At this time, patient denies any suicidal or homicidal ideation, intent or plan. Denies any auditory or visual hallucinations. Patient denies any side effects from the medications and has been compliant with meds. Mental status exam: General Appearance: Patient appears to be stated age, fair hygiene, unshaven. Behavior: No agitated behavior. Patient is calm and directable. Speech: Patient's speech is fluent and non-pressured. Mood/Affect: Mood is improving mildly, affect is congruent and constricted. Suicidality/Homicidality: Patient denies having any suicidal or homicidal ideation intent or plan. Perceptions: Patient denies any auditory or visual hallucinations. Though content/process: There is no evidence of any delusional thought content and thought process is linear and goal-directed. Memory and concentration: AOX3, grossly intact for the purposes of this session Judgment and insight: improving mildly Assessment/Plan: Continue with current diagnosis. Patient continues to meet criteria for inpatient psychiatric admission for symptom stabilization and safety. Increase Seroquel to 200 mg QHS for mood stabilization/sleep. Monitor for medication compliance and for any psychotropic medication side effects. Will continue to monitor ongoing response to treatment. Encouraged participation in milieu.
[2022-09-13] MEDS: MELATONIN 5 MG TABLET PO SCH (20:40)
[2022-09-13] MEDS: QUEtiapine 200 MG TAB PO SCH (20:40)
[2022-09-13] MEDS: SERTRALINE 100 MG TAB PO SCH (20:40)
[2022-09-14 15:33] VITALS: RESP 18
[2022-09-14] MEDS: SERTRALINE 100 MG TAB PO SCH ×2 (19:58→20:47)
[2022-09-14] MEDS: QUEtiapine 200 MG TAB PO SCH (19:59)
[2022-09-14] MEDS: MELATONIN 5 MG TABLET PO SCH (19:59)
--- NOTE | 2022-09-14 22:41 | P.PN ---
Progress Note - Text Progress Note Date: 09/14/22 Interval history: Patient was seen playing cards in the [employer] with peers again today and was directable and agreeable to speak with song writer. He reports his mood is better today but he still had fragmented sleep last night. At this time, patient denies any suicidal or homicidal ideation, intent or plan. Denies any auditory or visual hallucinations. Patient denies any side effects from the medications and has been compliant with meds. He would like the Seroquel increased to 300 mg QHS for mood/sleep tonight. Mental status exam: General Appearance: Patient appears to be stated age, fair hygiene, unshaven. Behavior: No agitated behavior. Patient is calm and directable. Speech: Patient's speech is fluent and non-pressured. Mood/Affect: Mood is improving mildly, affect is congruent and constricted. Suicidality/Homicidality: Patient denies having any suicidal or homicidal ideation intent or plan. Perceptions: Patient denies any auditory or visual hallucinations. Though content/process: There is no evidence of any delusional thought content and thought process is linear and goal-directed. Memory and concentration: AOX3, grossly intact for the purposes of this session Judgment and insight: improving mildly Assessment/Plan: Continue with current diagnosis. Patient continues to meet criteria for inpatient psychiatric admission for symptom stabilization and safety. Increase Seroquel to 300 mg QHS for mood stabilization/sleep. Monitor for medication compliance and for any psychotropic medication side effects. Will continue to monitor ongoing response to treatment. Encouraged participation in milieu.
--- NOTE | 2022-09-14 22:53 | P.HP ---
Psychiatric H&P - . H&P Date: 09/12/22 History & Physical: IDENTIFYING DATA: Patient is a 22 year old single, unemployed male with history of MDD, Cluster B personality, tobacco use disorder, stimulant use disorder who was admitted for suicidal thoughts. HPI: Patient presented to the hospital on 09/11/2022 due to worsening depression and suicidal ideation. Patient is known to [facility] since this is his fourth admission in the past 3 months. He reports medication compliance, and states he has been taking his Zoloft 150 mg QHS and Seroquel 200 mg QHS, however he is feeling suicidal and misses his son. He reports depressed mood. He feels guilty for relapsing on meth last week. He reports suicidal thoughts, denies plan or intent. Patient denies any homicidal ideations intent or plan. At this time patient denies any auditory or visual hallucinations. Patient denies any flight of ideas racing thoughts and increased in goal directed behavior. Patient admits to using methamphetamines last use about 8 days ago. PAST PSYCHIATRIC HISTORY: He is diagnosed with MDD, methamphetamine use disorder, cocaine use disorder, cannabis use disorder, Cluster B traits (likely Borderline) Med hx: Trazodone 150 mg QHS did not help with sleep. He stopped the Prozac because it wasn't helping. He previously took Zyprexa, [place], Abilify. Currently on Zoloft and Seroquel and denies side effects Previous psychiatric hospitalizations: 9 times, with most recent being at [facility] from 08/24/22-08/28/22 for SI. Psychiatric outpatient follow-up: [facility] Suicide attempts: He has a history of "a handful of times" including overdose. PMH:[denies] ALLERGIES: as per EMR CHEMICAL DEPENDENCY HISTORY: Alcohol: Denies Cocaine: Started using in Sep 2020. Peak use: Smoking a handful a day. Last use was January 2022 due to being incarcerated and on probation Methamphetamine: Started in Aug 2020. Smoking 2 grams daily for the past 2 years. Most recent use was 8 days ago. Suboxone and Fentanyl once in the past. Fentanyl use resulted in unintentional OD. Tobacco: 0.25 ppd Cannabis: Occasional Denies using other substances FAMILY PSYCHIATRIC/SUBSTANCE USE HISTORY: Sister: depression Suicide attempts: Sister SOCIAL HISTORY: Patient was born and raised in [place], [place]. He grew up with mother and 6 siblings. He says his father was not involved in their care and left his mother. Patient was 4 years old when parents were . Patient's mother lives in [place] now. He has been staying in [place], [place] for the past 7 years off and on. He reports a 10th grade education. He was incarcerated for 6 months due to unpaid child support and 3 months for burglary; currently lives at [facility]. He has one 3-year-old son who currently lives in [place]. He does not talk to the mother of his child. No other children. 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 Not on SSI. He denies any source of income at this time; is trying to find a job. MENTAL STATUS EXAM: General Appearance: Patient appears to be stated age is alert, directable, and attempts to cooperate. Patient appears to have fair hygiene and grooming. Behavior: Patient is seated without any agitated behavior, is withdrawn. Speech: Patient's speech is fluent and nonpressured, soft spoken. Mood/Affect: Patient reports their mood is depressed, affect is congruent and constricted. Suicidality/Homicidality: Patient denies having any homicidal ideation intent or plan. He endorses suicidal ideation without a specific plan. Perceptions: Patient denies any visual hallucinations and denies any auditory hallucinations. Though content/process: There is no evidence of any delusional thought content and thought process is linear and goal-directed. Memory and concentration: AOX3, grossly intact for the purposes of this session. Can spell "WORLD" backwards Judgment and insight: poor STRENGTHS/WEAKNESSES: strength is that patient is resilient. Weakness is that patient has poor judgment and history of substance abuse. INTELLECT: Average IMPRESSIONS: Major depressive disorder, recurrent, severe, without psychotic features Methamphetamine use disorder, severe Cocaine use disorder, in early remission Tobacco use disorder, mild Cannabis use disorder, mild Cluster B traits - likely BPD PLAN: -Patient is admitted under voluntary status to [facility] for stabilization of psychiatric symptoms and safety. Patient has signed adult voluntary form and is placed in patient's chart. -Medications: Increase Zoloft to 200 mg QHS for depression. Continue Seroquel at reduced dose of 100 mg by mouth at bedtime for mood stabilization, and increase as tolerated. -Ativan and Haldol PRN for agitation/aggression -Patient was counselled on substance abuse and desired to cut back on use -Patient was informed of the risks, benefits and side effects of the medication and patient verbally consented to taking the medications. -Internal Medicine consult to perform medical evaluation and physical. -NRT - nicotine patch -SW on board for discharge planning. Encourage patient to participate in groups to work on coping skills. Allergies Allergy/AdvReac Type Severity Reaction Status Date / Time nickel Allergy Rash/Hives Verified 09/10/22 23:50 Vital Signs Temp 98.2 F 09/12/22 02:00 Pulse 51 L 09/12/22 02:00 Resp 17 09/12/22 02:00 BP 114/55 09/12/22 02:00 Pulse Ox 96 09/12/22 02:00 FiO2 Intake & Output 09/11/22 09/12/22 09/12/22 18:59 06:59 18:59 Weight 100.698 kg Laboratory Last Values WBC 7.9 k/uL (3.8-10.6) 09/12/22 09:49 RBC 5.05 m/uL (4.30-5.90) 09/12/22 09:49 Hgb 15.2 gm/dL (13.0-17.5) 09/12/22 09:49 Hct 43.5 % (39.0-53.0) 09/12/22 09:49 MCV 86.0 fL (80.0-100.0) 09/12/22 09:49 MCH 30.2 pg (25.0-35.0) 09/12/22 09:49 MCHC 35.1 g/dL (31.0-37.0) 09/12/22 09:49 RDW 12.5 % (11.5-15.5) 09/12/22 09:49 Plt Count 257 k/uL (150-450) D 09/12/22 09:49 MPV 8.8 09/12/22 09:49 Neutrophils % 59 % 09/12/22 09:49 Lymphocytes % 30 % 09/12/22 09:49 Monocytes % 7 % 09/12/22 09:49 Eosinophils % 2 % 09/12/22 09:49 Basophils % 1 % 09/12/22 09:49 Neutrophils # 4.6 k/uL (1.3-7.7) 09/12/22 09:49 Lymphocytes # 2.4 k/uL (1.0-4.8) 09/12/22 09:49 Monocytes # 0.5 k/uL (0-1.0) 09/12/22 09:49 Eosinophils # 0.2 k/uL (0-0.7) 09/12/22 09:49 Basophils # 0.1 k/uL (0-0.2) 09/12/22 09:49 Sodium 139 mmol/L (137-145) 09/12/22 09:49 Potassium 4.5 mmol/L (3.5-5.1) 09/12/22 09:49 Chloride 105 mmol/L (98-107) 09/12/22 09:49 Carbon Dioxide 30 mmol/L (22-30) 09/12/22 09:49 Anion Gap 4 mmol/L 09/12/22 09:49 BUN 14 mg/dL (9-20) 09/12/22 09:49 Creatinine 0.84 mg/dL (0.66-1.25) 09/12/22 09:49 Est GFR (CKD-EPI)AfAm >90 (>60 ml/min/1.73 sqM) 09/12/22 09:49 Est GFR (CKD-EPI)NonAf >90 (>60 ml/min/1.73 sqM) 09/12/22 09:49 Glucose 93 mg/dL (74-99) 09/12/22 09:49 Calcium 9.1 mg/dL (8.4-10.2) 09/12/22 09:49 Total Bilirubin 0.6 mg/dL (0.2-1.3) 09/12/22 09:49 AST 22 U/L (17-59) 09/12/22 09:49 ALT 18 U/L (4-49) 09/12/22 09:49 Alkaline Phosphatase 63 U/L (38-126) 09/12/22 09:49 Total Protein 6.7 g/dL (6.3-8.2) 09/12/22 09:49 Albumin 4.1 g/dL (3.5-5.0) 09/12/22 09:49 Coronavirus (PCR) Not Detected (Not Detectd) 09/11/22 13:34 09/12/22 14:57 09/12/22 15:23 09/14/22 22:41
--- NOTE | 2022-09-15 11:52 | P.PN ---
Progress Note - Text Progress Note Date: 09/15/22 Interval history: Patient was seen attending group with peers again today and was directable and agreeable to speak with sheet writer. He reports his mood is "ok" today but he still had fragmented sleep last night, despite increasing his Seroquel to 300 mg QHS last night. Objectively, he appears well-rested. At this time, patient denies any suicidal or homicidal ideation, intent or plan. Denies any auditory or visual hallucinations. Patient denies any side effects from the medications and has been compliant with meds. Mental status exam: General Appearance: Patient appears to be stated age, fair hygiene, unshaven. Behavior: No agitated behavior. Patient is calm and directable. Speech: Patient's speech is fluent and non-pressured. Mood/Affect: Mood is improving mildly, affect is congruent and constricted. Suicidality/Homicidality: Patient denies having any suicidal or homicidal ideation intent or plan. Perceptions: Patient denies any auditory or visual hallucinations. Though content/process: There is no evidence of any delusional thought content and thought process is linear and goal-directed. Memory and concentration: AOX3, grossly intact for the purposes of this session Judgment and insight: improving mildly Assessment/Plan: Continue with current diagnosis. Patient continues to meet criteria for inpatient psychiatric admission for symptom stabilization and safety. Continue Seroquel 300 mg QHS for mood stabilization/sleep. Monitor for medication compliance and for any psychotropic medication side effects. Will continue to monitor ongoing response to treatment. Encouraged participation in milieu.
[2022-09-15] MEDS: QUEtiapine 200 MG TAB PO SCH (20:37)
[2022-09-15] MEDS: MELATONIN 5 MG TABLET PO SCH (20:37)
[2022-09-15] MEDS: SERTRALINE 100 MG TAB PO SCH (20:37)
[2022-09-16 07:00] VITALS: BP 121/70; PULSE 64; TEMP 97.6
--- NOTE | 2022-09-16 10:56 | P.DS ---
Providers Date of admission: 09/11/22 15:52 Expected date of discharge: 09/16/22 Attending physician: Ryan Anthony MD Consults: 09/11/22 15:34 Consult Physician Routine Consulting Provider: Lara Physician Consult Reason/Comments: medical management/history and physical Do you want consulting provider notified?: Yes Primary care physician: Stated None - Discharge Diagnosis(es) (1) Major depressive disorder, recurrent severe without psychotic features Current Visit: Yes Status: Acute Priority: High (2) Methamphetamine use disorder, severe Current Visit: Yes Status: Chronic Priority: Medium (3) Cocaine use disorder in remission Current Visit: Yes Status: Chronic Priority: Medium (4) Cluster B personality disorder Current Visit: Yes Status: Chronic Priority: Medium (5) Tobacco use disorder Current Visit: Yes Status: Chronic Priority: Low Hospital Course: Admission HPI: Initial psychiatric evaluation was completed by Dr. Joe on 09/12/2021 who wrote: "Patient is a 22 year old single, unemployed male with history of MDD, Cluster B personality, tobacco use disorder, stimulant use disorder who was admitted for suicidal thoughts. HPI: Patient presented to the hospital on 09/11/2022 due to worsening depression and suicidal ideation. Patient is known to [facility] since this is his fourth admission in the past 3 months. He reports medication compliance, and states he has been taking his Zoloft 150 mg QHS and Seroquel 200 mg QHS, however he is feeling suicidal and misses his son. He reports depressed mood. He feels guilty for relapsing on meth last week. He reports suicidal thoughts, denies plan or intent. Patient denies any homicidal ideations intent or plan. At this time patient denies any auditory or visual hallucinations. Patient denies any flight of ideas racing thoughts and increased in goal directed behavior. Patient admits to using methamphetamines last use about 8 days ago. PAST PSYCHIATRIC HISTORY: He is diagnosed with MDD, methamphetamine use disorder, cocaine use disorder, cannabis use disorder, Cluster B traits (likely Borderline) Med hx: Trazodone 150 mg QHS did not help with sleep. He stopped the Prozac because it wasn't helping. He previously took Zyprexa, [place], Abilify. Currently on Zoloft and Seroquel and denies side effects Previous psychiatric hospitalizations: 9 times, with most recent being at [facility] from 08/24/22-08/28/22 for SI. Psychiatric outpatient follow-up: [facility] Suicide attempts: He has a history of "a handful of times" including overdose." Hospital course: Upon admission to the unit patient was initially noted to be withdrawn and depressed endorsing suicidal ideation without any specific plan. Patient was however directable and agreeable to commence treatment. Patient got along well with other patients on the unit and followed unit protocol. Patient was compliant with the medications and denied any side effects throughout hospital course. Patient was started on his home medications of Zoloft and Seroquel which were titrated. Patient spoke of his stressors and engaged in therapy both group and individual. Patient was also seen by medical team for history and physical exam. Over the course of hospitalization, the patient displayed gradual but significant improvement in regards to target symptoms of depression. He did not endorse any suicidal ideation and became more future and goal oriented. However on the day of discharge, the patient reported suicidal ideation. He denied any intention or plan. The patient has had multiple admissions where he endorses suicidal ideation with no intention or plan. The patient reports that he just does not like to stay at [facility]. He reports that he feels lonely. He however is denying any intention or plan to ever hurt himself. Furthermore, the patient was counseled great length on the importance of medication adherence and appropriate outpatient follow-up including outpatient psychotherapy. The patient does have a significant history of substance abuse was counselor [place] on abstaining from all substances including alcohol, marijuana, and illicit drugs. As the patient no longer met criteria for continued inpatient psychiatric admission, he was subsequently discharged. Mental status exam: General Appearance: Patient appears to be stated age is alert, pleasant, and cooperative. Patient is in no acute distress and has fair hygiene and grooming Behavior: Patient is calmly seated without any agitated behavior. Speech: Patient's speech is fluent and nonpressured. Mood/Affect: Patient reports their mood is "doing all right", affect is con gruent and euthymic. Suicidality/Homicidality: Patient reports suicidal ideation but with no intention or plan. Patient is chronically suicidal. No homicidal ideation. Perceptions: Patient denies any auditory or visual hallucinations. Though content/process: There is no evidence of any delusional thought content and thought process is linear and goal-directed. He is future oriented Memory and concentration: AOX3, grossly intact for the purposes of this session. Can spell "WORLD" backwards correctly. Judgment and insight: Improved with guarded prognosis Impression: Major depressive disorder, recurrent, severe, without psychotic features Methamphetamine use disorder, severe Cocaine use disorder, in early remission Tobacco use disorder, mild Cannabis use disorder, mild Cluster B traits - likely BPD Plan: -Continue with discharge today as patient has improved and stabilized psychiatrically and is not currently an imminent threat to himself and/or others. Patient will remain at chronically elevated risk for harm to self and/or others due to his impulsivity and polysubstance abuse. -Continue medications: Seroquel 300 mg by mouth at bedtime for mood stabilization/augmentation Zoloft 200 mg by mouth daily for depression/anxiety -Patient was counseled on the need for medication compliance and appropriate follow-up at mental health and also primary care for medical issues. Patient verbalized understanding and agreed. -Social work to arrange for and conduct family meeting to ensure safety upon discharge and answer any questions/concerns. Social work also to arrange for patients follow up appointments with [facility] for psychiatric care along with follow up with primary care provider. -Patient counseled on abstaining from recreational drugs and marijuana and alcohol. Was informed/educated on the adverse effects on their physical and mental health. Patient verbally agreed and understood. Patient was offered substance abuse treatment however declined at this time.] -Patient was instructed to return to the hospital or seek immediate medical care if their psychiatric or medical symptoms do worsen or reoccur. -Psychoeducation and supportive therapy provided to patient. Risks and benefits of pharmacological treatment versus the risks and benefits of nontreatment weight and discussed. Informed consent discussion held. Common side effects of psychotropics discussed such as, but not limited to headache, GI disturbance, sexual dysfunction, movement disorders, sedation, and orthostatic hypotension. Life threatening and blackbox warnings of prescribed medications also discussed. Potential risks of operating a vehicle or heavy machinery discussed with patient at length. Advised on importance of compliance and a reliable and responsible manner. Patient advised to review FDA consumer labeling of all medications prior to taking. Patient verbalized understanding of potential risks, and agrees with current treatment plan. Patient advised to medically contact physician/emergency personnel if any acute changes in condition occur. Vital Signs Temp 97.6 F 09/16/22 07:00 Pulse 64 01/10/23 07:00 Resp 18 09/16/22 07:00 BP 121/70 09/16/22 07:00 Pulse Ox 97 09/16/22 07:00 FiO2 Laboratory Results WBC 7.9 k/uL (3.8-10.6) 09/12/22 09:49 RBC 5.05 m/uL (4.30-5.90) 09/12/22 09:49 Hgb 15.2 gm/dL (13.0-17.5) 09/12/22 09:49 Hct 43.5 % (39.0-53.0) 09/12/22 09:49 MCV 86.0 fL (80.0-100.0) 09/12/22 09:49 MCH 30.2 pg (25.0-35.0) 09/12/22 09:49 MCHC 35.1 g/dL (31.0-37.0) 09/12/22 09:49 RDW 12.5 % (11.5-15.5) 09/12/22 09:49 Plt Count 257 k/uL (150-450) D 09/12/22 09:49 MPV 8.8 09/12/22 09:49 Neutrophils % 59 % 09/12/22 09:49 Lymphocytes % 30 % 09/12/22 09:49 Monocytes % 7 % 09/12/22 09:49 Eosinophils % 2 % 09/12/22 09:49 Basophils % 1 % 09/12/22 09:49 Neutrophils # 4.6 k/uL (1.3-7.7) 09/12/22 09:49 Lymphocytes # 2.4 k/uL (1.0-4.8) 09/12/22 09:49 Monocytes # 0.5 k/uL (0-1.0) 09/12/22 09:49 Eosinophils # 0.2 k/uL (0-0.7) 09/12/22 09:49 Basophils # 0.1 k/uL (0-0.2) 09/12/22 09:49 Sodium 139 mmol/L (137-145) 09/12/22 09:49 Potassium 4.5 mmol/L (3.5-5.1) 09/12/22 09:49 Chloride 105 mmol/L (98-107) 09/12/22 09:49 Carbon Dioxide 30 mmol/L (22-30) 09/12/22 09:49 Anion Gap 4 mmol/L 09/12/22 09:49 BUN 14 mg/dL (9-20) 09/12/22 09:49 Creatinine 0.84 mg/dL (0.66-1.25) 09/12/22 09:49 Est GFR (CKD-EPI)AfAm >90 (>60 ml/min/1.73 sqM) 09/12/22 09:49 Est GFR (CKD-EPI)NonAf >90 (>60 ml/min/1.73 sqM) 09/12/22 09:49 Glucose 93 mg/dL (74-99) 09/12/22 09:49 Calcium 9.1 mg/dL (8.4-10.2) 09/12/22 09:49 Total Bilirubin 0.6 mg/dL (0.2-1.3) 09/12/22 09:49 AST 22 U/L (17-59) 09/12/22 09:49 ALT 18 U/L (4-49) 09/12/22 09:49 Alkaline Phosphatase 63 U/L (38-126) 09/12/22 09:49 Total Protein 6.7 g/dL (6.3-8.2) 09/12/22 09:49 Albumin 4.1 g/dL (3.5-5.0) 09/12/22 09:49 Coronavirus (PCR) Not Detected (Not Detectd) 09/11/22 13:34 Allergies Allergy/AdvReac Type Severity Reaction Status Date / Time nickel Allergy Rash/Hives Verified 09/10/22 23:50 Patient Condition at Discharge: Stable Plan - Discharge Summary Discharge Rx Participant: No New Discharge Prescriptions: New Melatonin 5 mg PO HS 30 Days tab QUEtiapine [SEROquel] 300 mg PO HS #30 tablet Sertraline [Zoloft] 200 mg PO DAILY 30 Days tab Continue Nicotine Gum (Polacrilex) [Nicorette] 2 mg BUCCAL Q4HR PRN 15 Days pieceofgum PRN Reason: Nicotine Cravings Benzocaine 20 % Gel [Orajel] 1 applic MM DAILY PRN 7 Days each PRN Reason: Toothache Loratadine [Claritin] 10 mg PO DAILY 15 Days tab Discontinued Sertraline [Zoloft] 150 mg PO HS Melatonin 5 mg PO HS 30 Days tab QUEtiapine [SEROquel] 200 mg PO HS 30 Days tab Discharge Medication List Loratadine [Claritin] 10 mg PO DAILY 15 Days tab 08/19/22 [Rx] Benzocaine 20 % Gel [Orajel] 1 applic MM DAILY PRN 7 Days each 08/28/22 [Rx] Nicotine Gum (Polacrilex) [Nicorette] 2 mg BUCCAL Q4HR PRN 15 Days pieceofgum 08/28/22 [Rx] Melatonin 5 mg PO HS 30 Days tab 09/16/22 [Rx] QUEtiapine [SEROquel] 300 mg PO HS #30 tablet 09/16/22 [Rx] Sertraline [Zoloft] 200 mg PO DAILY 30 Days tab 09/16/22 [Rx] Follow up Appointment(s)/Referral(s): [facility] [Outside] - 09/17/22 3:00 pm (09/17@ 3pm with Niru Cowan 09/19@ 1pm with Katia Palacio 10/01@ 10am with Dr. Fishman) None,Stated [Primary Care Provider] - 1-2 days Activity/Diet/Wound Care/Special Instructions: Avoid the use of street drugs and alcohol. Take all prescriptions as prescribed. When you are in need of refills on your medications, please contact your medical provider and/or outpatient psychiatrist to have this done. Please go to scheduled outpatient appointment for aftercare treatment. If symptoms return or become worse, call the crisis line at and/or go to the nearest emergency room for evaluation Discharge Disposition: HOME SELF-CARE
== END 2022-09-16 13:43 | disposition home or self-care (01) | DRG 885 ==
LOC: EC 23:35 → 3MHU 09-11 15:52
PROVIDERS: ADMIT Psychiatry & Neurology Psychiatry; ATTEND Psychiatry & Neurology Psychiatry
DX: F33.2 Major depressive disorder, recurrent severe without psychotic features (principal); R45.851 Suicidal ideations; F14.11 Cocaine abuse, in remission; F12.90 Cannabis use, unspecified, uncomplicated; F15.90 Other stimulant use, unspecified, uncomplicated; F17.210 Nicotine dependence, cigarettes, uncomplicated; F41.9 Anxiety disorder, unspecified; F60.89 Other specific personality disorders; Z79.899 Other long term (current) drug therapy; Z81.8 Family history of other mental and behavioral disorders; Z20.822 Contact with and (suspected) exposure to COVID-19
CPT/HCPCS: 80053; 82075; 85025; 87635; 99285

== ENCOUNTER 2022-09-18 18:50 | Emergency (ER) | payer OTHER ==
[2022-09-18 19:05] VITALS: TEMP 97.8
[2022-09-18] MEDS ORDERED: IBUPROFEN 600 MG TAB PO STA (19:57)
[2022-09-18] MEDS ORDERED: ACETAMINOPHEN TAB 500 MG TAB PO STA (19:57)
--- NOTE | 2022-09-18 20:03 | ED ---
Psych HPI - General Chief Complaint: Psychiatric Symptoms Stated Complaint: Mental Health Time Seen by Provider: 09/18/22 19:40 Source: patient, RN notes reviewed, old records reviewed Mode of arrival: ambulatory - History of Present Illness Initial Comments: 22-year-old male presents to the emergency room with complaints of suicidal ideation. Patient states that he is staying at [facility] after being discharged from the mental health unit 09/11/22. He has been there since June. He states that someone at [facility] made a comment about his son and he became angry. He states he took a sheet and wrapped it around his neck as suicide attempt and staff found him and brought him to the emergency room. He denies any neck pain, shortness of breath or cough. No difficulty swallowing or speaking. States he did try to overdose on pills a couple of years ago and his dad made him throw up but was not seen by a doctor at that time. Is currently taking antidepressants. He states that he does smoke marijuana occasionally and cigarettes daily. Denies any current drug use or alcohol use. MD Complaint: suicidal ideation -: days(s) (1) Associated Psychiatric Symptoms: depression, suicidal ideation History of same: Yes Quality: constant Associated Symptoms: other (dental pain) - Related Data Home Medications Medication Instructions Recorded Confirmed QUEtiapine FUMARATE [SEROquel] 300 mg PO HS 09/18/22 09/18/22 Previous Rx's Medication Instructions Recorded Loratadine [Claritin] 10 mg PO DAILY 15 Days tab 08/19/22 Benzocaine 20 % Gel [Orajel] 1 applic MM DAILY PRN 7 Days each 08/28/22 Nicotine Gum (Polacrilex) 2 mg BUCCAL Q4HR PRN 15 Days 08/28/22 [Nicorette] pieceofgum Melatonin 5 mg PO HS 30 Days tab 09/16/22 Sertraline [Zoloft] 200 mg PO DAILY 30 Days tab 09/16/22 Allergies Allergy/AdvReac Type Severity Reaction Status Date / Time nickel Allergy Rash/Hives Verified 09/18/22 22:00 Review of Systems ROS Statement: Those systems with pertinent positive or pertinent negative responses have been documented in the HPI. ROS Other: All systems not noted in ROS Statement are negative. Past Medical History Past Medical History: No Reported History History of Any Multi-Drug Resistant Organisms: None Reported Past Surgical History: No Surgical Hx Reported Past Anesthesia/Blood Transfusion Reactions: No Reported Reaction Past Psychological History: Bipolar, Depression Smoking Status: Current every day smoker Past Alcohol Use History: None Reported Past Drug Use History: Cocaine, Marijuana, Methamphetamine - Past Family History family Additional Family Medical History / Comment(s): no reported cancer or heart disease General Exam Limitations: no limitations General appearance: alert, in no apparent distress Head exam: Present: atraumatic, normocephalic, normal inspection Eye exam: Present: normal appearance. Absent: scleral icterus, conjunctival injection, periorbital swelling, periorbital tenderness ENT exam: Present: mucous membranes moist, other (dental caries, tooth 20) Neck exam: Present: normal inspection, full ROM. Absent: tenderness, meningismus, lymphadenopathy, thyromegaly Respiratory exam: Present: normal lung sounds bilaterally. Absent: respiratory distress, accessory muscle use Cardiovascular Exam: Present: regular rate GI/Abdominal exam: Present: soft. Absent: distended, tenderness, rigid Extremities exam: Present: full ROM, normal capillary refill. Absent: pedal edema Neurological exam: Present: alert, oriented X3 Psychiatric exam: Present: suicidal ideation Skin exam: Present: warm, dry, normal color. Absent: cyanosis, diaphoretic, petechiae, pallor Course Vital Signs 09/18/22 19:02 Temperature 97.8 F Pulse Rate 98 Respiratory 16 Rate Blood Pressure 159/90 O2 Sat by Pulse 98 Oximetry Medical Decision Making - Medical Decision Making Patient presented with suicidal ideation stating that he wrapped a sheet around his neck today involved in a sensitive verbal confrontation with another resident at [facility]. There is no evidence of bruising, redness, abrasions or injury to the neck or chest. Patient is comfortable sitting on the cart. Vital signs are stable. He states that he was just discharged on September 16 from mental health unit. EPS nurse Tanesha has spoken to the patient. She did speak with the psychiatrist who states patient is well-known to them. They're comfortable with patient being discharged home and a safety plan was made. Patient is agreeable with this plan of care. He denies any suicidal ideations at this time. Case discussed with Dr. March. Was pt. sent in by a medical professional or institution? @ -No Did you speak to anyone other than the patient for history? @ -No Did you review nursing and triage notes? @ -Yes I agree Were old charts reviewed? @ -Previous mental health admissions Differential Diagnosis? @ -Suicidal ideation, homicidal ideation, depression, adjustment reaction, mood disorder What testing was considered but not performed? (CT, X-rays, U/S, labs)? Why? @ X-ray of cervical spine was considered however patient denies any pain, there is no redness swelling abrasions or injuries noted What meds were considered but not given? Why? @ -None Did you discuss the management of the patient with other professionals? @ -Psych nurse Did you reconcile home meds? @ -No Was smoking cessation discussed for >3mins.? @ -yes Was critical care preformed (if so, how long)? @ -No Were there social determinants of health that impacted care today? How? (Homelessness, low income, unemployed, alcoholism, drug addiction, transportation, low edu. Level, literacy, decrease access to med. care, alf, rehab)? @ -Drug addiction history, history of mental health Was there de-escalation of care discussed even if they declined? (Discuss DNR or withdrawal of care, Hospice)? @ -No What co-morbidities impacted this encounter? (DM, HTN, Smoking, COPD, CAD, Cancer, CVA, Hep., AIDS, mental health diagnosis, sleep apnea, morbid obesity)? @ -Mental health Was patient admitted / discharged? @ -Discharged Undiagnosed new problem with uncertain prognosis? @ -[none] Drug Therapy requiring intensive monitoring for toxicity (Heparin, Nitro, Insulin, Cardizem)? @ -No Were any procedures done? @ -No Diagnosis/symptom? @ -Acute grief reaction, suicidal ideation adjustment disorder Acute, or Chronic, or Acute on Chronic? @ -Acute on chronic Uncomplicated (without systemic symptoms) or Complicated (systemic symptoms)? @ -Uncomplicated Side effects of treatment? @ -[none] Exacerbation, Progression, or Severe Exacerbation] @ -[no] Poses a threat to life or bodily function? @ -Yes patient presented to us suicidal ideation. History of same. Case was discussed with the EPS nurse who spoke with the psychiatrist. They're very familiar with this patient as he was evaluated and discharged after inpatient stay just 3 days ago. They believe it is safe to send the patient home with a safety plan. Patient is agreeable to this plan of care. - Lab Data Lab Results 09/18/22 Range/Units 22:29 Urine Color Light Yellow Urine Appearance Clear (Clear) Urine pH 6.0 (5.0-8.0) Ur Specific [place] 1.015 (1.001-1.035) Urine Protein Negative (Negative) Urine Glucose (UA) Negative (Negative) Urine Ketones Negative (Negative) Urine Blood Negative (Negative) Urine Nitrite Negative (Negative) Urine Bilirubin Negative (Negative) Urine Urobilinogen <2.0 (<2.0) mg/dL Ur Leukocyte Esterase Negative (Negative) Urine Opiates Screen Not Detected (NotDetected) Ur Oxycodone Screen Not Detected (NotDetected) Urine Methadone Screen Not Detected (NotDetected) Ur Propoxyphene Screen Not Detected (NotDetected) Ur Barbiturates Screen Not Detected (NotDetected) U Tricyclic Antidepress Detected H (NotDetected) Ur Phencyclidine Scrn Not Detected (NotDetected) Ur Amphetamines Screen Not Detected (NotDetected) U Methamphetamines Scrn Not Detected (NotDetected) U Benzodiazepines Scrn Not Detected (NotDetected) Urine Cocaine Screen Not Detected (NotDetected) U Marijuana (THC) Screen Not Detected (NotDetected) Disposition Clinical Impression: Adjustment reaction of adult life Disposition: HOME SELF-CARE Condition: Good Instructions (If sedation given, give patient instructions): Mood Disorders (ED) Additional Instructions: Follow-up with community mental health. Take your medications as prescribed. Return to the emergency room with any new or concerning symptoms including suicidal or homicidal ideation. Is patient prescribed a controlled substance at d/c from ED?: No Referrals: None,Stated [Primary Care Provider] - 1-2 days Time of Disposition: 23:56
[2022-09-18 22:33] LABS: Appearance,Urine Clear (Clear); Bilirubin,Urine Negative (Negative); Blood,Urine Negative (Negative); Color,Urine Light Yellow; Glucose,Urine (UA) Negative (Negative); Ketones,Urine Negative (Negative); Leukocyte Esterase,Urine Negative (Negative); Nitrite,Urine Negative (Negative); Protein,Urine Negative (Negative); Specific Gravity,Urine 1.015 (1.001-1.035); Urobilinogen,Urine <2.0 mg/dL (<2.0)
[2022-09-18 23:26] LABS: Amphetamine Screen,Urine Not Detected (NotDetected); Barbiturate Screen,Urine Not Detected (NotDetected); Benzodiazepines Screen,Urine Not Detected (NotDetected); Cocaine Screen,Urine Not Detected (NotDetected); Methadone Screen, Urine Not Detected (NotDetected); Opiate Screen,Urine Not Detected (NotDetected); Oxycodone Screen, Urine Not Detected (NotDetected); Phencyclidine Screen,Urine Not Detected (NotDetected); Tricyclic Antidepressant,Urine Detected (NotDetected); Urn Cannabinoid Scrn Not Detected (NotDetected)
[2022-09-19 00:31] VITALS: BP 115/68; PULSE 72; RESP 18
== END 2022-09-19 00:32 | disposition home or self-care (01) ==
LOC: EC 18:50
DX: F43.20 Adjustment disorder, unspecified (principal); F31.9 Bipolar disorder, unspecified; F17.200 Nicotine dependence, unspecified, uncomplicated; F12.90 Cannabis use, unspecified, uncomplicated; Z91.048 Other nonmedicinal substance allergy status
CPT/HCPCS: 80306; 81003; 82075; 99285

== ENCOUNTER 2022-10-04 00:19 | Inpatient (IN) | payer MEDICAID, OTHER ==
--- NOTE | 2022-10-04 01:15 | ED ---
Psych HPI - General Source: patient, RN notes reviewed, old records reviewed Mode of arrival: ambulatory - History of Present Illness MD Complaint: suicidal ideation -: hour(s) (2) Associated Psychiatric Symptoms: depression, suicidal ideation History of same: Yes Quality: constant Context: significant life stressor (loss of his son) If Self Harm: admits thoughts of self harm, intentional overdose <London Streeter - Last Filed: 10/04/22 02:06> <Antonio Medrano - Last Filed: 10/04/22 06:58> - General Chief Complaint: Psychiatric Symptoms Stated Complaint: Mental Health Time Seen by Provider: 10/04/22 01:02 - History of Present Illness Initial Comments: 22-year-old male, alert and oriented 4 presents to emergency room with complaints of suicidal ideation. Patient has history of the same. States that he is staying at [facility] and he frequently has suicidal thoughts. His plan is to overdose on medications. States that trigger is thinking about the loss of his son. (London Streeter) - Related Data Home Medications Medication Instructions Recorded Confirmed QUEtiapine FUMARATE [SEROquel] 300 mg PO HS 09/18/22 09/18/22 Previous Rx's Medication Instructions Recorded Loratadine [Claritin] 10 mg PO DAILY 15 Days tab 08/19/22 Benzocaine 20 % Gel [Orajel] 1 applic MM DAILY PRN 7 Days each 08/28/22 Nicotine Gum (Polacrilex) 2 mg BUCCAL Q4HR PRN 15 Days 08/28/22 [Nicorette] pieceofgum Melatonin 5 mg PO HS 30 Days tab 09/16/22 Sertraline [Zoloft] 200 mg PO DAILY 30 Days tab 09/16/22 Allergies Allergy/AdvReac Type Severity Reaction Status Date / Time nickel Allergy Rash/Hives Verified 09/18/22 22:00 Review of Systems ROS Other: All systems not noted in ROS Statement are negative. <London Streeter - Last Filed: 10/04/22 02:06> ROS Other: All systems not noted in ROS Statement are negative. <Antonio Medrano - Last Filed: 10/04/22 06:58> ROS Statement: Those systems with pertinent positive or pertinent negative responses have been documented in the HPI. Past Medical History Past Medical History: No Reported History History of Any Multi-Drug Resistant Organisms: None Reported Past Surgical History: No Surgical Hx Reported Past Anesthesia/Blood Transfusion Reactions: No Reported Reaction Past Psychological History: Bipolar, Depression Smoking Status: Current every day smoker Past Alcohol Use History: None Reported Past Drug Use History: Cocaine, Marijuana, Methamphetamine - Past Family History family Additional Family Medical History / Comment(s): no reported cancer or heart disease <London Streeter - Last Filed: 10/04/22 02:06> General Exam Limitations: no limitations General appearance: alert, in no apparent distress Head exam: Present: atraumatic Eye exam: Present: normal appearance. Absent: scleral icterus, conjunctival injection, periorbital swelling ENT exam: Present: mucous membranes moist Neck exam: Present: full ROM. Absent: tenderness, meningismus Respiratory exam: Absent: respiratory distress, accessory muscle use Cardiovascular Exam: Present: regular rate GI/Abdominal exam: Present: soft. Absent: distended, tenderness, rigid Extremities exam: Present: normal capillary refill Neurological exam: Present: alert, oriented X3 Psychiatric exam: Present: depressed, suicidal ideation Skin exam: Present: warm, dry, normal color. Absent: cyanosis, diaphoretic, petechiae, pallor <London Streeter - Last Filed: 10/04/22 02:06> Course Vital Signs 10/04/22 10/04/22 00:55 03:00 Temperature 98.1 F Pulse Rate 87 76 Respiratory 10 L 17 Rate Blood Pressure 128/87 122/84 O2 Sat by Pulse 98 98 Oximetry Medical Decision Making <London Streeter - Last Filed: 10/04/22 02:06> - Medical Decision Making I personally seen this patient on September 18 when he presented with suicidal ideations. At that time he was assessed by psychiatric nurse Tanesha who states patient is well known to them. They recommended patient be discharged home at that time the care of Noah gay (London Streeter) - Lab Data Lab Results 10/04/22 10/04/22 Range/Units 03:43 03:43 Urine Opiates Screen Not Detected (NotDetected) Ur Oxycodone Screen Not Detected (NotDetected) Urine Methadone Screen Not Detected (NotDetected) Ur Propoxyphene Screen Not Detected (NotDetected) Ur Barbiturates Screen Not Detected (NotDetected) U Tricyclic Antidepress Detected H (NotDetected) Ur Phencyclidine Scrn Not Detected (NotDetected) Ur Amphetamines Screen Not Detected (NotDetected) U Methamphetamines Scrn Not Detected (NotDetected) U Benzodiazepines Scrn Not Detected (NotDetected) Urine Cocaine Screen Not Detected (NotDetected) U Marijuana (THC) Screen Not Detected (NotDetected) Coronavirus (PCR) Not Detected (Not Detectd) Disposition <London Streeter - Last Filed: 10/04/22 02:06> Is patient prescribed a controlled substance at d/c from ED?: No <Antonio Medrano - Last Filed: 10/04/22 06:58> Clinical Impression: Auditory hallucinations, Psychosis, Major depressive disorder, recurrent severe without psychotic features, Suicidal ideation Disposition: TRANSFER TO PSYCH HOSP/UNIT Condition: Fair Referrals: None,Stated [Primary Care Provider] - 1-2 days
[2022-10-04 04:24] LABS: Cocaine Screen,Urine Not Detected (NotDetected); Phencyclidine Screen,Urine Not Detected (NotDetected); Urn Cannabinoid Scrn Not Detected (NotDetected)
[2022-10-04 04:25] LABS: Amphetamine Screen,Urine Not Detected (NotDetected); Barbiturate Screen,Urine Not Detected (NotDetected); Benzodiazepines Screen,Urine Not Detected (NotDetected); Methadone Screen, Urine Not Detected (NotDetected); Opiate Screen,Urine Not Detected (NotDetected); Oxycodone Screen, Urine Not Detected (NotDetected); Tricyclic Antidepressant,Urine Detected (NotDetected)
[2022-10-04 07:45] LABS: Basophils # (A) 0.1 k/uL (0-0.2); Basophils % (A) 1 %; Eosinophils # (A) 0.2 k/uL (0-0.7); Eosinophils % (A) 2 %; HCT 40.5 % (39.0-53.0); HGB 13.9 gm/dL (13.0-17.5); Lymphocytes % (A) 25 %; MCH 28.9 pg (25.0-35.0); MCHC 34.2 g/dL (31.0-37.0); MCV 84.4 fL (80.0-100.0); Mean Platelet Volume 8.6; Monocytes # (A) 0.6 k/uL (0-1.0); Monocytes % (A) 8 %; Neutrophils % (A) 62 %; Platelet Count 219 k/uL (150-450); RDW 12.9 % (11.5-15.5); WBC 8.1 k/uL (3.8-10.6)
[2022-10-04] MEDS ORDERED: MAGNESIUM HYDROXIDE 2,400 MG/10 ML CUP PO PRN (07:53)
[2022-10-04] MEDS ORDERED: LORazepam 2 MG/ML INJ IM PRN (07:53)
[2022-10-04] MEDS ORDERED: LORazepam 1 MG TAB PO PRN (07:53)
[2022-10-04] MEDS ORDERED: haloperidoL 5 MG TAB PO PRN (07:53)
[2022-10-04] MEDS ORDERED: HALOPERIDOL LACTATE 5 MG/ML 1 ML VIAL IM PRN (07:53)
[2022-10-04] MEDS ORDERED: MAG HYDROX/AL HYDROX/SIMETH 30 ML CUP PO PRN (07:53)
[2022-10-04 08:00] LABS: ALT 221 U/L (4-49); AST 105 U/L (17-59); African American GFR (CKD) >90 (>60 ml/min/1.73 sqM); Albumin 4.2 g/dL (3.5-5.0); Alkaline Phosphatase 57 U/L (38-126); Anion Gap 6 mmol/L; Blood Urea Nitrogen 14 mg/dL (9-20); Carbon Dioxide 28 mmol/L (22-30); Chloride 104 mmol/L (98-107); Glucose 85 mg/dL (74-99); Non-African American GFR(CKD) >90 (>60 ml/min/1.73 sqM); Potassium 4.3 mmol/L (3.5-5.1); Sodium 138 mmol/L (137-145); Total Bilirubin 0.5 mg/dL (0.2-1.3); Total Protein 6.7 g/dL (6.3-8.2)
[2022-10-04] MEDS: NICOTINE 14MG/24HR PATCH TRANSDERM SCH (08:17)
[2022-10-04] MEDS: SERTRALINE 100 MG TAB PO SCH (18:11)
--- NOTE | 2022-10-04 19:31 | P.HP ---
Psychiatric H&P - . H&P Date: 10/04/22 History & Physical: Allergies Allergy/AdvReac Type Severity Reaction Status Date / Time nickel Allergy Rash/Hives Verified 09/18/22 22:00 Vital Signs Temp 97.5 F L 10/04/22 08:08 Pulse 82 10/04/22 08:08 Resp 16 10/04/22 08:08 BP 95/52 10/04/22 08:08 Pulse Ox 97 10/04/22 08:08 FiO2 Intake & Output 10/03/22 10/04/22 10/04/22 18:59 06:59 18:59 Weight 113.398 kg Laboratory Last Values WBC 8.1 k/uL (3.8-10.6) 10/04/22 07:35 RBC 4.80 m/uL (4.30-5.90) 10/04/22 07:35 Hgb 13.9 gm/dL (13.0-17.5) 10/04/22 07:35 Hct 40.5 % (39.0-53.0) 10/04/22 07:35 MCV 84.4 fL (80.0-100.0) 10/04/22 07:35 MCH 28.9 pg (25.0-35.0) 10/04/22 07:35 MCHC 34.2 g/dL (31.0-37.0) 10/04/22 07:35 RDW 12.9 % (11.5-15.5) 10/04/22 07:35 Plt Count 219 k/uL (150-450) 10/04/22 07:35 MPV 8.6 10/04/22 07:35 Neutrophils % 62 % 10/04/22 07:35 Lymphocytes % 25 % 10/04/22 07:35 Monocytes % 8 % 10/04/22 07:35 Eosinophils % 2 % 10/04/22 07:35 Basophils % 1 % 10/04/22 07:35 Neutrophils # 5.0 k/uL (1.3-7.7) 10/04/22 07:35 Lymphocytes # 2.0 k/uL (1.0-4.8) 10/04/22 07:35 Monocytes # 0.6 k/uL (0-1.0) 10/04/22 07:35 Eosinophils # 0.2 k/uL (0-0.7) 10/04/22 07:35 Basophils # 0.1 k/uL (0-0.2) 10/04/22 07:35 Sodium 138 mmol/L (137-145) 10/04/22 07:35 Potassium 4.3 mmol/L (3.5-5.1) 10/04/22 07:35 Chloride 104 mmol/L (98-107) 10/04/22 07:35 Carbon Dioxide 28 mmol/L (22-30) 10/04/22 07:35 Anion Gap 6 mmol/L 10/04/22 07:35 BUN 14 mg/dL (9-20) 10/04/22 07:35 Creatinine 0.77 mg/dL (0.66-1.25) 10/04/22 07:35 Est GFR (CKD-EPI)AfAm >90 (>60 ml/min/1.73 sqM) 10/04/22 07:35 Est GFR (CKD-EPI)NonAf >90 (>60 ml/min/1.73 sqM) 10/04/22 07:35 Glucose 85 mg/dL (74-99) 10/04/22 07:35 Calcium 9.0 mg/dL (8.4-10.2) 10/04/22 07:35 Total Bilirubin 0.5 mg/dL (0.2-1.3) 10/04/22 07:35 AST 105 U/L (17-59) H 10/04/22 07:35 ALT 221 U/L (4-49) H 10/04/22 07:35 Alkaline Phosphatase 57 U/L (38-126) 10/04/22 07:35 Total Protein 6.7 g/dL (6.3-8.2) 10/04/22 07:35 Albumin 4.2 g/dL (3.5-5.0) 10/04/22 07:35 Urine Opiates Screen Not Detected (NotDetected) 10/04/22 03:43 Ur Oxycodone Screen Not Detected (NotDetected) 10/04/22 03:43 Urine Methadone Screen Not Detected (NotDetected) 10/04/22 03:43 Ur Propoxyphene Screen Not Detected (NotDetected) 10/04/22 03:43 Ur Barbiturates Screen Not Detected (NotDetected) 10/04/22 03:43 U Tricyclic Antidepress Detected (NotDetected) H 10/04/22 03:43 Ur Phencyclidine Scrn Not Detected (NotDetected) 10/04/22 03:43 Ur Amphetamines Screen Not Detected (NotDetected) 10/04/22 03:43 U Methamphetamines Scrn Not Detected (NotDetected) 10/04/22 03:43 U Benzodiazepines Scrn Not Detected (NotDetected) 10/04/22 03:43 Urine Cocaine Screen Not Detected (NotDetected) 10/04/22 03:43 U Marijuana (THC) Screen Not Detected (NotDetected) 10/04/22 03:43 Coronavirus (PCR) Not Detected (Not Detectd) 10/04/22 03:43 10/04/22 08:28 IDENTIFYING DATA: Patient is a single, unemployed, 22-year-old [place] male who is presenting after suicide attempt HPI: This is a well-known patient at [facility] with several admissions for depression. He was most recently discharged on 09/16/2022 on Seroquel and Zoloft. He reports that he attempted suicide afterwards (he tied a sheet around his neck and to his bed) and was then hospitalized at [facility]. He says he was discharged on Seroquel 400 mg, Zoloft 200 mg, and trazodone 100 mg. He says that he had been discharged from [facility] for 2 days before current suicide attempt. Patient says he took OD Seroquel (4 tabs) and trazodone (7 tabs) while at [facility] because he was feeling depressed over the thought of being alone and not being able to see his son. He says that he stopped himself when he thought of his son. He reports another resident found him and informed the staff, who brought patient to the hospital. He reports his mood worsened 2 days after and had racing thoughts. Patient has poor coping skills and does not display insight into his condition. He reports that he found Seroquel, trazodone, Zoloft to be helpful and denies side effects. Due to recent multiple rehospitalizations, patient denies using any substances. Patient endorses recent suicidal ideation. On risk assessment, patient denies homicidal ideation, auditory and visual hallucinations, as asked and assessed. He denies signs and symptoms consistent with eloisa. PSYCH HX: He is diagnosed with MDD, methamphetamine use disorder, cocaine use disorder, cannabis use disorder, Cluster B traits (likely Borderline) Med hx: Trazodone 150 mg QHS did not help with sleep. He stopped the Prozac because it wasn't helping. He previously took Zyprexa, [place], Abilify. Currently on Zoloft, trazodone and Seroquel and denies side effects Previous psychiatric hospitalizations: 9 times, with most recent being at [facility] from 08/24/22-08/28/22 for SI. Psychiatric outpatient follow-up: [facility] Suicide attempts: He has a history of "a handful of times" including overdose. PMH: Denies chronic medical issues ALLERGIES: NDKA SUBSTANCE HX: Alcohol: Denies Cocaine: Started using in Sep 2020. Peak use: Smoking a handful a day. Last use was January 2022 due to being incarcerated and on probation Methamphetamine: Started in Aug 2020. Smoking 2 grams daily for the past 2 years. Most recent use was in 08/2022 Suboxone and Fentanyl once in the past. Fentanyl use resulted in unintentional OD. Tobacco: 0.25 ppd Cannabis: Occasional Denies using other substances SOCIAL/LEGAL HX: Patient was born and raised in [place], [place]. He grew up with mother and 6 siblings. He says his father was not involved in their care and left his mother. Patient was 4 years old when parents were . Patient's mother lives in [place] now. He has been staying in [place], [place] for the past 7 years off and on. He reports a 10th grade education. He was incarcerated for 6 months due to unpaid child support and 3 months for burglary; currently lives at [facility]. He has one 3-year-old son who currently lives in [place]. He does not talk to the mother of his child. No other children. 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 Not on SSI. He denies any source of income at this time; is trying to find a job. FAM PSYCH HX: Sister: depression Suicide attempts: Sister MENTAL STATUS EXAM: General Appearance: Patient appears to be older than stated age is alert, directable, and attempts to cooperate. Patient appears to have poor hygiene and grooming. Behavior: Patient is seated without any agitated behavior. Calm, withdrawn Speech: Quick brief responses with less elaboration even when asked Mood/Affect: Patient reports their mood is depressed, affect is congruent and constricted. Suicidality/Homicidality: Patient denies having any homicidal ideation intent or plan. Endorses suicidal ideation and recent SA Perceptions: Patient denies any visual hallucinations and denies any auditory hallucinations Though content/process: There is no evidence of any delusional thought content and thought process is linear and goal-directed. Memory and concentration: AOX3, grossly intact for the purposes of this session. Can spell "WORLD" backwards Judgment and insight: poor and impulsive STRENGTHS/WEAKNESSES: strength is that patient is resilient. Weakness is that patient has poor impulse control. INTELLECT: average IMPRESSIONS: Major depressive disorder, recurrent, severe, without psychotic features Methamphetamine use disorder, severe Cocaine use disorder, in early remission Tobacco use disorder, mild Cannabis use disorder, mild Cluster B traits - likely BPD PLAN: -Patient is admitted under voluntary status to [facility] for stabilization of psychiatric symptoms and safety. Patient signed adult voluntary form and medication consent and is placed in patient's chart. - QTc is 408. AST and ALT are elevated -Medications : - Due to elevated LFTs, will decrease Seroquel to 300 qHS for mood augmentation - Stop trazodone due to elevated LFTs - Continue Zoloft 200 daily for depression - Start [place] 150 mg BID for depression augmentation -Patient was counselled on substance abuse and desired to cut back on use. Motivational interviewing. -Patient was informed of the risks, benefits and side effects of the medication and patient verbally consented to taking the medications. -Internal Medicine consult to perform medical evaluation and physical. -SW on board for discharge planning. Encourage patient to participate in groups to work on coping skills. 10/04/22 11:53 10/04/22 12:02 10/04/22 19:18
[2022-10-04] MEDS: LITHIUM CARBONATE 150 MG CAP PO SCH (20:08)
[2022-10-04] MEDS: QUEtiapine 100 MG TAB PO SCH (20:08)
--- NOTE | 2022-10-04 22:25 | P.CONS ---
History of Present Illness - Reason for Consult Consult date: 10/04/22 - History of Present Illness The patient is a 22-year-old male with a PMH of polysubstance abuse psychiatric illnesses with presented to the emergency room with complaints of depression and suicidal ideation. The patient was admitted to the mental health unit where he was seen and eval tablets uated. The patient reports that he had attempted to overdose on his prescribed Seroquel and trazodone by taking 4 tablets of S eroquel as well as 7 times of trazodone prior to arrival at the emergency room. He reports feeling somewhat tired at the time of interview but states he is largely at his baseline. He reports he attempted suicide due to feeling isolated and being away from his family. He is currently in [place] due to probation from child support. Denied any physical complaints at the time of interview. Reports smoking half pack of cigarettes daily. Patient reports a history of substance abuse but states that he has recently been sober. Denied alcohol use. Denied experiencing chest discomfort, shortness of breath, fever, chills, cough, nausea, vomiting, abdominal pain, diarrhea. Review of systems: Pertinent positives and negatives as discussed in HPI, a complete review of systems was performed and all other systems are negative. Physical examination: General: non toxic, no distress, appears at stated age, obese Derm: no unusual rashes/lesions, no unusual ecchymoses, warm, dry Head: atraumatic, normocephalic, symmetric Eyes: EOMI, no lid lag, anicteric sclera ENT: Nose and ears atraumatic, no thrush, no pharyngeal erythema Neck: trachea midline, supple Mouth: no lip lesion, mucus membranes moist Cardiovascular: S1S2 reg, no murmur, no edema Lungs: CTA bilateral, no rhonchi, no rales , no accessory muscle use Abdominal: soft, nontender to palpation, no guarding Ext: no gross muscle atrophy, no contractures, Neuro: No gross focal neuro deficits noted Psych: Alert, oriented, appropriate affect Assessment/plan Intentional overdose on psychiatric medications -Patient essentially at baseline Tobacco and polysubstance abuse -Strongly advised on the importance of cessation Depression and suicidal ideation -As per psychiatry Thank you for allowing us to participate in the care of this patient. We will follow peripherally. Do not hesitate to contact us with questions. Someone can be reached from the [facility] hospitalist group at all hours of the day at [phone]. Past Medical History Past Medical History: No Reported History History of Any Multi-Drug Resistant Organisms: None Reported Past Surgical History: No Surgical Hx Reported Past Anesthesia/Blood Transfusion Reactions: No Reported Reaction Past Psychological History: Bipolar, Depression Smoking Status: Current every day smoker Past Alcohol Use History: None Reported Past Drug Use History: Cocaine, Marijuana, Methamphetamine Additional Drug Use History / Comment(s): Admits to relapsing 7 days ago after being sober. - Past Family History family Family Medical History: COPD Additional Family Medical History / Comment(s): no reported cancer or heart disease Medications and Allergies Home Medications Medication Instructions Recorded Confirmed Type Loratadine [Claritin] 10 mg PO DAILY 15 Days tab 08/19/22 09/18/22 Rx Benzocaine 20 % Gel [Orajel] 1 applic MM DAILY PRN 7 Days each 08/28/22 09/18/22 Rx Nicotine Gum (Polacrilex) 2 mg BUCCAL Q4HR PRN 15 Days 08/28/22 09/18/22 Rx [Nicorette] pieceofgum Melatonin 5 mg PO HS 30 Days tab 09/16/22 09/18/22 Rx Sertraline [Zoloft] 200 mg PO DAILY 30 Days tab 09/16/22 09/18/22 Rx QUEtiapine FUMARATE [SEROquel] 300 mg PO HS 09/18/22 09/18/22 History Allergies Allergy/AdvReac Type Severity Reaction Status Date / Time nickel Allergy Rash/Hives Verified 09/18/22 22:00 Physical Exam Vitals: Vital Signs Temp Pulse Pulse Resp BP BP Pulse Ox 10/04/22 12:04 98.4 F 97 16 136/75 10/04/22 11:49 98.4 F 97 16 136/75 10/04/22 08:08 97.5 F L 82 16 95/52 97 10/04/22 03:00 76 17 122/84 98 10/04/22 00:55 98.1 F 87 10 L 128/87 98 Intake and Output 10/04/22 10/04/22 10/04/22 06:59 14:59 22:59 Other: Weight 113.398 kg 113.398 kg Results CBC & Chem 7: 10/04/22 07:35 10/04/22 07:35 Labs: Abnormal Lab Results - Last 24 Hours (Table) 10/04/22 10/04/22 Range/Units 03:43 07:35 AST 105 H (17-59) U/L ALT 221 H (4-49) U/L U Tricyclic Antidepress Detected H (NotDetected)
[2022-10-05] MEDS: ACETAMINOPHEN TAB 325 MG TAB PO PRN ×2 (05:24→09:24)
[2022-10-05] MEDS: NICOTINE 14MG/24HR PATCH TRANSDERM SCH (09:23)
[2022-10-05] MEDS: SERTRALINE 100 MG TAB PO SCH (09:23)
[2022-10-05] MEDS: LITHIUM CARBONATE 150 MG CAP PO SCH ×2 (09:24→20:37)
[2022-10-05 10:48] LABS: Chol/HDL Ratio 3.68 Ratio
[2022-10-05] MEDS: IBUPROFEN 400 MG TAB PO PRN ×2 (12:41→21:33)
--- NOTE | 2022-10-05 13:37 | P.PN ---
Progress Note - Text Progress Note Date: 10/05/22 Interval History: Patient was seen wandering the hallways and was directable and agreeable to speak with underwriter mortgage loan in the office. He states that his mood is "iffy " and continues to appear dysphoric. He reports participating in groups and interacting with peers. He is hopeful to find a different chcf upon discharge. He believes that his current chcf has been the cause of him to feel more depressed. He was recommended to discuss this with social work. He reports eating and sleeping well. At this time patient denies any suicidal or homicidal ideations, intent or plan. Patient denies any auditory, visual hallucinations and denies any paranoia or delusions. Patient denies any side effects from the medications and has been compliant with meds. Mental Status Exam: General Appearance: Patient appears to be older than stated age is alert, directable, and attempts to cooperate. Patient appears to have poor hygiene and grooming. Behavior: Patient is seated without any agitated behavior. Calm, withdrawn Speech: Quick brief responses with less elaboration even when asked Mood/Affect: Patient reports their mood is depressed, affect is congruent and constricted. Suicidality/Homicidality: Patient denies having any homicidal ideation intent or plan. Denies suicidal ideation but recent SA Perceptions: Patient denies any visual hallucinations and denies any auditory hallucinations Though content/process: There is no evidence of any delusional thought content and thought process is linear and goal-directed. Memory and concentration: AOX3, grossly intact for the purposes of this session. Can spell "WORLD" backwards Judgment and insight: poor and impulsive AIMS = 0 Assessment Major depressive disorder, recurrent, severe, without psychotic features Methamphetamine use disorder, severe Cocaine use disorder, in early remission Tobacco use disorder, mild Cannabis use disorder, mild Cluster B traits - likely BPD PLAN: -Patient is admitted under voluntary status to MHU for stabilization of psychiatric symptoms and safety. Patient signed adult voluntary form and medication consent and is placed in patient's chart. - QTc is 408. AST and ALT were elevated -Medications : - Continue Seroquel 300 qHS for mood augmentation - Stop trazodone due to elevated LFTs - Continue Zoloft 200 daily for depression - Continue [place] 150 mg BID for depression augmentation/suicidal ideation -Patient was counselled on substance abuse and desired to cut back on use. Motivational interviewing. -Patient was informed of the risks, benefits and side effects of the medication and patient verbally consented to taking the medications. -Internal Medicine consult to perform medical evaluation and physical. -SW on board for discharge planning. Encourage patient to participate in groups to work on coping skills.
[2022-10-05] MEDS: BENZOCAINE 20 % GEL 11.9 GM TUBE MM PRN ×2 (16:54→20:37)
[2022-10-05] MEDS: QUEtiapine 100 MG TAB PO SCH (20:36)
[2022-10-06] MEDS: BENZOCAINE 20 % GEL 11.9 GM TUBE MM PRN ×3 (04:53→20:38)
[2022-10-06] MEDS: IBUPROFEN 400 MG TAB PO PRN ×2 (06:09→12:42)
[2022-10-06] MEDS: LITHIUM CARBONATE 150 MG CAP PO SCH ×2 (08:35→20:38)
[2022-10-06] MEDS: SERTRALINE 100 MG TAB PO SCH (08:35)
[2022-10-06] MEDS: NICOTINE 14MG/24HR PATCH TRANSDERM SCH ×2 (08:36→12:43)
[2022-10-06 10:22] LABS: ALT 218 U/L (4-49); AST 96 U/L (17-59); African American GFR (CKD) >90 (>60 ml/min/1.73 sqM); Albumin 4.6 g/dL (3.5-5.0); Alkaline Phosphatase 67 U/L (38-126); Anion Gap 8 mmol/L; Blood Urea Nitrogen 16 mg/dL (9-20); Calcium 9.5 mg/dL (8.4-10.2); Carbon Dioxide 27 mmol/L (22-30); Chloride 104 mmol/L (98-107); Glucose 119 mg/dL (74-99); Non-African American GFR(CKD) >90 (>60 ml/min/1.73 sqM); Potassium 4.2 mmol/L (3.5-5.1); Sodium 139 mmol/L (137-145); Total Bilirubin 0.4 mg/dL (0.2-1.3); Total Protein 7.4 g/dL (6.3-8.2)
--- NOTE | 2022-10-06 12:20 | P.PN ---
Progress Note - Text Progress Note Date: 10/06/22 Interval History: Patient was seen wandering the hallways and was directable and agreeable to speak with blurb writer in the office. The patient is currently reporting no suicidal or homicidal ideation, intention, and/or plan. He is not reporting auditory or visual hallucinations. He reports no paranoia or other delusions. He expresses that he is feeling "ready to go." He states that he is scheduled to meet with his training and development officer today. He has been adherent with his medication and is not endorsing any significant side effects. Despite elevated LFTs, the patient is not endorsing any abdominal pain or malaise. He reports no issues regarding his sleep or his appetite. He remains future and goal oriented. Mental Status Exam: General Appearance: Patient appears to be older than stated age is alert, directable, and attempts to cooperate. Fair hygiene and grooming. Behavior: Patient is seated without any agitated behavior. Bright and friendly on approach. Speech: Spontaneous, with normal rate, tone, and volume. Mood/Affect: Patient reports their mood is "feeling good and ready to go," affect is congruent and bright Suicidality/Homicidality: Patient denies any current suicidal or homicidal ideation. Perceptions: Patient denies any visual hallucinations and denies any auditory hallucinations Though content/process: There is no evidence of any delusional thought content and thought process is linear and goal-directed. Memory and concentration: AOX3, grossly intact for the purposes of this session. Can spell "WORLD" backwards Judgment and insight: poor and impulsive Vital Signs Temp 97.9 F 10/06/22 03:21 Pulse 97 10/06/22 03:21 Resp 18 10/06/22 03:21 BP 155/94 10/06/22 03:21 Pulse Ox 96 10/06/22 03:21 FiO2 Intake & Output 10/05/22 10/06/22 10/06/22 18:59 06:59 18:59 Weight 116.8 kg Laboratory Results - Last 24 Hours 10/06/22 09:34 Sodium 139 Potassium 4.2 Chloride 104 Carbon Dioxide 27 Anion Gap 8 BUN 16 Creatinine 0.80 Est GFR (CKD-EPI)AfAm >90 Est GFR (CKD-EPI)NonAf >90 Glucose 119 H Calcium 9.5 Total Bilirubin 0.4 AST 96 H ALT 218 H Alkaline Phosphatase 67 Total Protein 7.4 Albumin 4.6 AIMS = 0 Assessment Major depressive disorder, recurrent, severe, without psychotic features Methamphetamine use disorder, severe Cocaine use disorder, in early remission Tobacco use disorder, mild Cannabis use disorder, mild Cluster B traits - likely BPD PLAN: -Patient is admitted under voluntary status to MHU for stabilization of psychiatric symptoms and safety. Patient signed adult voluntary form and medication consent and is placed in patient's chart. - QTc is 408. AST and ALT were elevated & recheck shows trending downward elevated AST and ALT. - -Medications : - Continue Seroquel 300 qHS for mood augmentation - Continue Zoloft 200 daily for depression - Continue [place] 150 mg BID for depression augmentation/suicidal ideation -Patient was counselled on substance abuse and desired to cut back on use. Motivational interviewing. -Patient was informed of the risks, benefits and side effects of the medication and patient verbally consented to taking the medications. -Internal Medicine consult to perform medical evaluation and physical. -SW on board for discharge planning. Encourage patient to participate in groups to work on coping skills. -Anticipate discharge tomorrow.
[2022-10-06] MEDS: QUEtiapine 100 MG TAB PO SCH (20:38)
[2022-10-06] MEDS: NICOTINE GUM (POLACRILEX) 2 MG GUM BUCCAL PRN (20:39)
[2022-10-07 06:47] VITALS: BP 132/66; PULSE 86; RESP 17; TEMP 97.7
[2022-10-07] MEDS: SERTRALINE 100 MG TAB PO SCH (09:25)
[2022-10-07] MEDS: LITHIUM CARBONATE 150 MG CAP PO SCH (09:25)
[2022-10-07] MEDS: NICOTINE GUM (POLACRILEX) 2 MG GUM BUCCAL PRN (09:26)
--- NOTE | 2022-10-07 12:07 | P.DS ---
Providers Date of admission: 10/04/22 07:51 Expected date of discharge: 10/07/22 Attending physician: Ryan Anthony MD Consults: 10/04/22 07:53 Consult Physician Routine Consulting Provider: Lara Bautista Consult Reason/Comments: Medical H&P Do you want consulting provider notified?: Yes Primary care physician: Stated None - Discharge Diagnosis(es) (1) Major depressive disorder, recurrent severe without psychotic features Status: Acute Priority: High (2) Cannabis use disorder, mild, abuse Status: Chronic Priority: Medium (3) Borderline personality disorder Status: Chronic Priority: Medium (4) Cocaine use disorder in remission Status: Chronic Priority: Medium (5) Tobacco use disorder Status: Chronic Priority: Medium (6) Methamphetamine use disorder, severe Status: Chronic Priority: Medium Hospital Course: Admission HPI: Initial psychiatric evaluation was completed by Dr Stewart who wrote: "Patient is a single, unemployed, 22-year-old Tajik male who is presenting after suicide attempt This is a well-known patient at [facility] with several admissions for depression. He was most recently discharged on 09/16/2022 on Seroquel and Zoloft. He reports that he attempted suicide afterwards (he tied a sheet around his neck and to his bed) and was then hospitalized at [facility]. He says he was discharged on Seroquel 400 mg, Zoloft 200 mg, and trazodone 100 mg. He says that he had been discharged from [facility] for 2 days before current suicide attempt. Patient says he took OD Seroquel (4 tabs) and trazodone (7 tabs) while at [facility] because he was feeling depressed over the thought of being alone and not being able to see his son. He says that he stopped himself when he thought of his son. He reports another resident found him and informed the staff, who brought patient to the hospital. He reports his mood worsened 2 days after and had racing thoughts. Patient has poor coping skills and does not display insight into his condition. He reports that he found Seroquel, trazodone, Zoloft to be helpful and denies side effects. Due to recent multiple rehospitalizations, patient denies using any substances. Patient endorses recent suicidal ideation. On risk assessment, patient denies homicidal ideation, auditory and visual hallucinations, as asked and assessed. He denies signs and symptoms consistent with eloisa. He is diagnosed with MDD, methamphetamine use disorder, cocaine use disorder, cannabis use disorder, Cluster B traits (likely Borderline) Med hx: Trazodone 150 mg QHS did not help with sleep. He stopped the Prozac because it wasn't helping. He previously took Zyprexa, Ely, Abilify. Currently on Zoloft, trazodone and Seroquel and denies side effects Previous psychiatric hospitalizations: 9 times, with most recent being at [facility] from 08/24/22-08/28/22 for SI. Psychiatric outpatient follow-up: [facility] Suicide attempts: He has a history of "a handful of times" including overdose." Hospital course: Upon admission to the unit patient was initially noted to be depressed with a constricted affect. Patient was however directable and agreeable to commence treatment. Patient got along well with other patients on the unit and followed unit protocol. Patient was compliant with the medications and denied any side effects throughout hospital course. Patient was started on zoloft and lithium. Trazodone was discontinued due to elevated LFTs. Patient spoke of his stressors and engaged in therapy both group and individual. Patient was also seen by medical team for history and physical exam. He was continued on his seroquel. Recheck of his LFTs revealed a trend downwards. Over the course of the hospitalization, the patient displayed significant improvement in regards to mood and future orientation. He tolerated his medications well. He was evaluated by the medical team for a history and physical examination. On the day of discharge, the patient is not reporting any suicidal or homicidal ideation, intention, and/or plan. He reports no access to firearms or other weapons. He reports no auditory or visual hallucinations. He denies any paranoia or other delusions. He expresses a desire to live for himself and his family. Patient does have a significant history of substance abuse however was counseled on abstaining from all substances including alcohol and marijuana. Patient was offered however declined inpatient substance-abuse rehab. Patient was also counseled on the medications and need for regular compliance and was encouraged to follow-up with their outpatient appointment for mental health and also for primary care. Prior to discharge a team meeting will be arranged by forensic social worker to answer any questions and ensure safety upon discharge. Mental status exam: General Appearance: Patient appears to be stated age is alert, pleasant, and cooperative. Patient is in no acute distress and has fair hygiene and grooming Behavior: Patient is calmly seated without any agitated behavior. Speech: Patient's speech is fluent and nonpressured. Mood/Affect: Patient reports their mood is "much better", affect is congruent and euthymic to bright. Suicidality/Homicidality: Patient denies having any suicidal or homicidal ideation intent or plan. Perceptions: Patient denies any auditory or visual hallucinations. Though content/process: There is no evidence of any delusional thought content and thought process is linear and goal-directed. Patient is future oriented. Memory and concentration: AOX3, grossly intact for the purposes of this session. Can spell "WORLD" backwards correctly. Judgment and insight: Improved with guarded prognosis Impression: Major depressive disorder, recurrent, severe, without psychotic features Methamphetamine use disorder, severe Cocaine use disorder, in early remission Tobacco use disorder, mild Cannabis use disorder, mild Borderline Personality Disorder Plan: -Continue with discharge today as patient has improved and stabilized psychiatrically and is not currently an imminent threat to himself and/or others. Patient will remain at chronically elevated risk for harm to self and/or others due to his impulsivity and polysubstance abuse. -Continue medications: Seroquel 300 qHS for mood augmentation Zoloft 200 daily for depression Ely 150 mg BID for depression augmentation/suicidal ideation -Patient was counseled on the need for medication compliance and appropriate follow-up at mental health and also primary care for medical issues. Patient verbalized understanding and agreed. -Social work to arrange for and conduct family meeting to ensure safety upon discharge and answer any questions/concerns. Social work also to arrange for patients follow up appointments with [facility] for psychiatric care along with follow up with primary care provider. -Patient counseled on abstaining from recreational drugs and marijuana and alcohol. Was informed/educated on the adverse effects on their physical and mental health. Patient verbally agreed and understood. Patient was offered substance abuse treatment however declined at this time. -Patient was instructed to return to the hospital or seek immediate medical care if their psychiatric or medical symptoms do worsen or reoccur. -Psychoeducation and supportive therapy provided to patient. Risks and benefits of pharmacological treatment versus the risks and benefits of nontreatment weight and discussed. Informed consent discussion held. Common side effects of psychotropics discussed such as, but not limited to headache, GI disturbance, sexual dysfunction, movement disorders, sedation, and orthostatic hypotension. Life threatening and blackbox warnings of prescribed medications also discussed. Potential risks of operating a vehicle or heavy machinery discussed with patient at length. Advised on importance of compliance and a reliable and responsible manner. Patient advised to review FDA consumer labeling of all medications prior to taking. Patient verbalized understanding of potential risks, and agrees with current treatment plan. Patient advised to medically contact physician/emergency personnel if any acute changes in condition occur. Vital Signs Temp 97.7 F 10/07/22 03:00 Pulse 86 10/07/22 03:00 Resp 17 10/07/22 03:00 BP 132/66 10/07/22 03:00 Pulse Ox 98 10/07/22 03:00 FiO2 Laboratory Results WBC 8.1 k/uL (3.8-10.6) 10/04/22 07:35 RBC 4.80 m/uL (4.30-5.90) 10/04/22 07:35 Hgb 13.9 gm/dL (13.0-17.5) 10/04/22 07:35 Hct 40.5 % (39.0-53.0) 10/04/22 07:35 MCV 84.4 fL (80.0-100.0) 10/04/22 07:35 MCH 28.9 pg (25.0-35.0) 10/04/22 07:35 MCHC 34.2 g/dL (31.0-37.0) 10/04/22 07:35 RDW 12.9 % (11.5-15.5) 10/04/22 07:35 Plt Count 219 k/uL (150-450) 10/04/22 07:35 MPV 8.6 10/04/22 07:35 Neutrophils % 62 % 10/04/22 07:35 Lymphocytes % 25 % 10/04/22 07:35 Monocytes % 8 % 10/04/22 07:35 Eosinophils % 2 % 10/04/22 07:35 Basophils % 1 % 10/04/22 07:35 Neutrophils # 5.0 k/uL (1.3-7.7) 10/04/22 07:35 Lymphocytes # 2.0 k/uL (1.0-4.8) 10/04/22 07:35 Monocytes # 0.6 k/uL (0-1.0) 10/04/22 07:35 Eosinophils # 0.2 k/uL (0-0.7) 10/04/22 07:35 Basophils # 0.1 k/uL (0-0.2) 10/04/22 07:35 Sodium 139 mmol/L (137-145) 10/06/22 09:34 Potassium 4.2 mmol/L (3.5-5.1) 10/06/22 09:34 Chloride 104 mmol/L (98-107) 10/06/22 09:34 Carbon Dioxide 27 mmol/L (22-30) 10/06/22 09:34 Anion Gap 8 mmol/L 10/06/22 09:34 BUN 16 mg/dL (9-20) 10/06/22 09:34 Creatinine 0.80 mg/dL (0.66-1.25) 10/06/22 09:34 Est GFR (CKD-EPI)AfAm >90 (>60 ml/min/1.73 sqM) 10/06/22 09:34 Est GFR (CKD-EPI)NonAf >90 (>60 ml/min/1.73 sqM) 10/06/22 09:34 Glucose 119 mg/dL (74-99) H 10/06/22 09:34 Calcium 9.5 mg/dL (8.4-10.2) 10/06/22 09:34 Total Bilirubin 0.4 mg/dL (0.2-1.3) 10/06/22 09:34 AST 96 U/L (17-59) H 10/06/22 09:34 ALT 218 U/L (4-49) H 10/06/22 09:34 Alkaline Phosphatase 67 U/L (38-126) 10/06/22 09:34 Total Protein 7.4 g/dL (6.3-8.2) 10/06/22 09:34 Albumin 4.6 g/dL (3.5-5.0) 10/06/22 09:34 Triglycerides 165.00 mg/dL (0.00-149.00) H 10/04/22 07:35 Cholesterol 195.00 mg/dL (0.00-200.00) 10/04/22 07:35 LDL Cholesterol, Calc 109.0 mg/dL (0.0-131.0) 10/04/22 07:35 VLDL Cholesterol, Calc 33.00 mg/dL (5.00-40.00) 10/04/22 07:35 HDL Cholesterol 53.00 mg/dL (40.00-60.00) 10/04/22 07:35 Cholesterol/HDL Ratio 3.68 Ratio 10/04/22 07:35 Urine Opiates Screen Not Detected (NotDetected) 10/04/22 03:43 Ur Oxycodone Screen Not Detected (NotDetected) 10/04/22 03:43 Urine Methadone Screen Not Detected (NotDetected) 10/04/22 03:43 Ur Propoxyphene Screen Not Detected (NotDetected) 10/04/22 03:43 Ur Barbiturates Screen Not Detected (NotDetected) 10/04/22 03:43 U Tricyclic Antidepress Detected (NotDetected) H 10/04/22 03:43 Ur Phencyclidine Scrn Not Detected (NotDetected) 10/04/22 03:43 Ur Amphetamines Screen Not Detected (NotDetected) 10/04/22 03:43 U Methamphetamines Scrn Not Detected (NotDetected) 10/04/22 03:43 U Benzodiazepines Scrn Not Detected (NotDetected) 10/04/22 03:43 Urine Cocaine Screen Not Detected (NotDetected) 10/04/22 03:43 U Marijuana (THC) Screen Not Detected (NotDetected) 10/04/22 03:43 Coronavirus (PCR) Not Detected (Not Detectd) 10/04/22 03:43 Allergies Allergy/AdvReac Type Severity Reaction Status Date / Time nickel Allergy Rash/Hives Verified 09/18/22 22:00 Patient Condition at Discharge: Stable Plan - Discharge Summary Discharge Rx Participant: No New Discharge Prescriptions: New Ely Carbonate 150 mg PO BID 15 Days #30 cap QUEtiapine [SEROquel] 300 mg PO HS 15 Days #45 tab Sertraline [Zoloft] 200 mg PO DAILY 15 Days #30 tab Benzocaine 20 % Gel [Orajel] 1 applic MM DAILY PRN 7 Days #7 each PRN Reason: Oral Pain Continue Nicotine Gum (Polacrilex) [Nicorette] 2 mg BUCCAL Q4HR PRN 15 Days pieceofgum PRN Reason: Nicotine Cravings Melatonin 5 mg PO HS 30 Days tab Loratadine [Claritin] 10 mg PO DAILY 15 Days tab Discontinued Benzocaine 20 % Gel [Orajel] 1 applic MM DAILY PRN 7 Days each PRN Reason: Toothache QUEtiapine FUMARATE [SEROquel] 300 mg PO HS Sertraline [Zoloft] 200 mg PO DAILY 30 Days tab Discharge Medication List Loratadine [Claritin] 10 mg PO DAILY 15 Days tab 08/19/22 [Rx] Nicotine Gum (Polacrilex) [Nicorette] 2 mg BUCCAL Q4HR PRN 15 Days pieceofgum 08/28/22 [Rx] Melatonin 5 mg PO HS 30 Days tab 09/16/22 [Rx] Benzocaine 20 % Gel [Orajel] 1 applic MM DAILY PRN 7 Days #7 each 10/07/22 [Rx] Ely Carbonate 150 mg PO BID 15 Days #30 cap 10/07/22 [Rx] QUEtiapine [SEROquel] 300 mg PO HS 15 Days #45 tab 10/07/22 [Rx] Sertraline [Zoloft] 200 mg PO DAILY 15 Days #30 tab 10/07/22 [Rx] Follow up Appointment(s)/Referral(s): [facility] [Outside] - 10/09/22 3:00 pm (10/09/2022 3:00PM - 4:00PM with RYAN BELLE 10/10/2022 9:30AM - 10:00AM with WILLIAM BRITO) [facility] [NON-STAFF] - 1 Week Patient Instructions/Handouts: How to Stop Smoking (DC), Depression (DC), Psychotic Disorder (DC) Activity/Diet/Wound Care/Special Instructions: Avoid the use of street drugs and alcohol. Take all prescriptions as prescribed. When you are in need of refills on your medications, please contact your medical provider and/or outpatient psychiatrist to have this done. Please go to scheduled outpatient appointment for aftercare treatment. If symptoms return or become worse, call the crisis line at and/or go to the nearest emergency room for evaluation Discharge Disposition: HOME SELF-CARE
== END 2022-10-07 10:53 | disposition home or self-care (01) | DRG 885 ==
LOC: EC 00:19 → 3MHU 07:51
PROVIDERS: ADMIT Psychiatry & Neurology Psychiatry; ATTEND Psychiatry & Neurology Psychiatry
DX: F33.2 Major depressive disorder, recurrent severe without psychotic features (principal); F12.10 Cannabis abuse, uncomplicated; F14.11 Cocaine abuse, in remission; F15.90 Other stimulant use, unspecified, uncomplicated; F17.210 Nicotine dependence, cigarettes, uncomplicated; F29 Unspecified psychosis not due to a substance or known physiological condition; F60.3 Borderline personality disorder; Z79.899 Other long term (current) drug therapy; Z20.822 Contact with and (suspected) exposure to COVID-19
CPT/HCPCS: 36415; 80053; 80061; 80306; 85025; 87635; 93005; 99285

== ENCOUNTER 2022-11-24 00:21 | Inpatient (IN) | payer OTHER ==
--- NOTE | 2022-11-24 01:28 | ED ---
Psych HPI - General Chief Complaint: Psychiatric Symptoms Stated Complaint: suicidal Time Seen by Provider: 11/24/22 00:29 Source: patient, RN notes reviewed Mode of arrival: ambulatory - History of Present Illness Initial Comments: Patient is a 22-year-old male presenting to the emergency room for psychiatric evaluation due to suicidal thoughts with a plan of overdosing on pills. He denies any hallucinations or delusions. He denies any homicidal thoughts. He reports that he was prescribed medication for bipolar depression of trazodone, Seroquel and Abilify however he stopped taking these medications approximately a month and a half ago. He has had increase in low mood with suicidal thoughts worsening over the last 48 hours. He does admit to illicit drug use of marijuana and meth utilizing these substances approximately once a week with his last intake approximately 1 week ago. He denies any other substance abuse. He has a daily smoker. He denies any other significant past medical history. - Related Data Previous Rx's Medication Instructions Recorded Loratadine [Claritin] 10 mg PO DAILY 15 Days tab 08/19/22 Nicotine Gum (Polacrilex) 2 mg BUCCAL Q4HR PRN 15 Days 08/28/22 [Nicorette] pieceofgum Melatonin 5 mg PO HS 30 Days tab 09/16/22 Benzocaine 20 % Gel [Orajel] 1 applic MM DAILY PRN 7 Days #7 10/07/22 each Avard Carbonate 150 mg PO BID 15 Days #30 cap 10/07/22 QUEtiapine [SEROquel] 300 mg PO HS 15 Days #45 tab 10/07/22 Sertraline [Zoloft] 200 mg PO DAILY 15 Days #30 tab 10/07/22 Allergies Allergy/AdvReac Type Severity Reaction Status Date / Time nickel Allergy Rash/Hives Verified 11/24/22 00:31 Review of Systems ROS Statement: Those systems with pertinent positive or pertinent negative responses have been documented in the HPI. ROS Other: All systems not noted in ROS Statement are negative. Past Medical History Past Medical History: No Reported History History of Any Multi-Drug Resistant Organisms: None Reported Past Surgical History: No Surgical Hx Reported Past Anesthesia/Blood Transfusion Reactions: No Reported Reaction Past Psychological History: Bipolar, Depression Smoking Status: Current every day smoker Past Alcohol Use History: None Reported Past Drug Use History: Cocaine, Marijuana, Methamphetamine - Past Family History family Family Medical History: COPD Additional Family Medical History / Comment(s): no reported cancer or heart disease General Exam - General Exam Comments Initial Comments: GENERAL: No acute distress, well developed, well nourished. Poor hygiene HEENT: Normocephalic, atraumatic. Pupils equal, round, reactive to light. Moist mucous membranes. LUNGS: No respiratory distress. Clear to auscultation, no adventitious sounds, no use of accessory muscles. HEART: Regular rate and rhythm without murmur, rub, or gallop. ABDOMEN: Normal bowel sounds. Soft, non-tender, non-distended. BACK: Normal inspection. EXTREMITIES: No edema. No tenderness. Moves all extremities. NEUROLOGIC: Alert & oriented x 3. CN II-XII grossly intact. PSYCHIATRIC: Flat affect and behavior. Suicidal thoughts. DERMATOLOGIC: Bilateral feet with erythema near no overt lesions or maculopapular rashes. Limitations: no limitations Course Vital Signs 11/24/22 00:31 Temperature 98.5 F Pulse Rate 89 Respiratory 16 Rate Blood Pressure 126/77 O2 Sat by Pulse 97 Oximetry Medical Decision Making - Medical Decision Making Was pt. sent in by a medical professional or institution (, PA, WINDOWS ADMINISTRATOR, urgent care, hospital, or [facility]...) When possible be specific @ -No Did you speak to anyone other than the patient for history (EMS, parent, family, police, friend...)? What history was obtained from this source @ -No Did you review nursing and triage notes (agree or disagree)? Why? @ -I reviewed and agree with nursing and triage notes Were old charts reviewed (outside hosp., previous admission, EMS record, old EKG, old radiological studies, urgent care reports/EKG's, [facility] records)? Report findings @ -No old charts were reviewed Differential Diagnosis (chest pain, altered mental status, abdominal pain women, abdominal pain men, vaginal bleeding, weakness, fever, dyspnea, syncope, headache, dizziness, GI bleed, back pain, seizure, CVA, palpatations, mental health, musculoskeletal)? @ -Differential Mental Health Depression, anxiety, bipolar, psychosis, schizophrenia, borderline personality, situational depression, adjustment disorder, behavioral disorder, brain tumor, malingering, substance abuse, encephalopathy, medication reaction, dementia, hypothyroidism, degenerative neurologic disorder, lupus.... This is not meant to be all-inclusive list EKG interpreted by me (3pts min.). @ -None done X-rays interpreted by me (1pt min.). @ -None done CT interpreted by me (1pt min.). @ -None done U/S interpreted by me (1pt. min.). @ -None done What testing was considered but not performed or refused? (CT, X-rays, U/S, labs)? Why? @ -None What meds were considered but not given or refused? Why? @ -None Did you discuss the management of the patient with other professionals (gisele villegas i.e. , PA, WINDOWS ADMINISTRATOR, lab, RT, psych nurse, director social welfare, sifter operator, teacher, light armored vehicle officer, immigration case worker)? Give summary @ -No Was smoking cessation discussed for >3mins.? @ -No Was critical care preformed (if so, how long)? @ -No Were there social determinants of health that impacted care today? How? (Homelessness, low income, unemployed, alcoholism, drug addiction, transportation, low edu. Level, literacy, decrease access to med. care, assisted, rehab)? @ -No Was there de-escalation of care discussed even if they declined (Discuss DNR or withdrawal of care, Hospice)? DNR status @ -No What co-morbidities impacted this encounter? (DM, HTN, Smoking, COPD, CAD, Cancer, CVA, ARF, Chemo, Hep., AIDS, mental health diagnosis, sleep apnea, morbid obesity)? @ -Bipolar depression and polysubstance abuse Was patient admitted / discharged? Hospital course, mention meds given and route, prescriptions, significant lab abnormalities, going to OR and other pertinent info. @ -22-year-old male presenting to the emergency room with depressed mood and suicidal thoughts along with plan to commit suicide via ingestion of pills. Blood alcohol level 0.00. Will obtain urine drug screen the setting of known polysubstance abuse. No indication for other diagnostic imaging or laboratory studies. Will clear patient from a medical standpoint for EPS evaluation. Patient placed in a psychiatric down with his belongings removed and placed in a psychiatric room with objects that he may harm himself with removed. Drug screen positive for amphetamines, methamphetamines and THC. EPS evaluation completed. Patient to be admitted to [facility] voluntarily for evaluation and treatment for bipolar depression with suicidal thoughts and plan. Will discharge patient in stable condition for admission to psychiatric inpatient unit to treat bipolar depression with suicidal thoughts and plan. Undiagnosed new problem with uncertain prognosis? @ -No Drug Therapy requiring intensive monitoring for toxicity (Heparin, Nitro, Insulin, Cardizem)? @ -No Were any procedures done? @ -No Diagnosis/symptom? @ -Bipolar depression with suicidal thought Acute, or Chronic, or Acute on Chronic? @ -Acute on chronic Uncomplicated (without systemic symptoms) or Complicated (systemic symptoms)? @ -Complicated Side effects of treatment? @ -No Exacerbation, Progression, or Severe Exacerbation? @ -No Poses a threat to life or bodily function? How? (Chest pain, USA, DC, pneumonia, PE, COPD, DKA, ARF, appy, cholecystitis, CVA, Diverticulitis, Homicidal, Suicidal, threat to staff... and all critical care pts) @ -Yes Case discussed with Dr. Slaughter - Lab Data Lab Results 11/24/22 Range/Units 01:02 Urine Opiates Screen Not Detected (NotDetected) Ur Oxycodone Screen Not Detected (NotDetected) Urine Methadone Screen Not Detected (NotDetected) Ur Propoxyphene Screen Not Detected (NotDetected) Ur Barbiturates Screen Not Detected (NotDetected) U Tricyclic Antidepress Not Detected (NotDetected) Ur Phencyclidine Scrn Not Detected (NotDetected) Ur Amphetamines Screen Detected H (NotDetected) U Methamphetamines Scrn Detected H (NotDetected) U Benzodiazepines Scrn Not Detected (NotDetected) Urine Cocaine Screen Not Detected (NotDetected) U Marijuana (THC) Screen Detected H (NotDetected) Disposition Clinical Impression: Bipolar disorder with depression, Suicidal ideation Disposition: TRANSFER TO PSYCH HOSP/UNIT Condition: Stable Referrals: None,Stated [Primary Care Provider] - 1-2 days Time of Disposition: 04:01
[2022-11-24 02:12] LABS: Urn Cannabinoid Scrn Detected (NotDetected)
[2022-11-24 02:13] LABS: Amphetamine Screen,Urine Detected (NotDetected); Barbiturate Screen,Urine Not Detected (NotDetected); Benzodiazepines Screen,Urine Not Detected (NotDetected); Cocaine Screen,Urine Not Detected (NotDetected); Methadone Screen, Urine Not Detected (NotDetected); Opiate Screen,Urine Not Detected (NotDetected); Oxycodone Screen, Urine Not Detected (NotDetected); Phencyclidine Screen,Urine Not Detected (NotDetected); Tricyclic Antidepressant,Urine Not Detected (NotDetected)
[2022-11-24] MEDS ORDERED: ACETAMINOPHEN TAB 325 MG TAB PO PRN (04:38)
[2022-11-24] MEDS ORDERED: MAGNESIUM HYDROXIDE 2,400 MG/10 ML CUP PO PRN (04:38)
[2022-11-24] MEDS ORDERED: HALOPERIDOL LACTATE 5 MG/ML 1 ML VIAL IM PRN (04:38)
[2022-11-24] MEDS ORDERED: MAG HYDROX/AL HYDROX/SIMETH 30 ML CUP PO PRN (04:38)
[2022-11-24] MEDS ORDERED: haloperidoL 5 MG TAB PO PRN (04:47)
[2022-11-24] MEDS ORDERED: NICOTINE GUM (POLACRILEX) 2 MG GUM BUCCAL PRN (04:50)
[2022-11-24] MEDS ORDERED: hydrOXYzine HCL 50 MG/ML 1 ML VIAL IM PRN (06:00)
[2022-11-24] MEDS ORDERED: BENZOCAINE 20 % GEL 11.9 GM TUBE MM PRN (09:00)
[2022-11-24] MEDS ORDERED: hydrOXYzine HCL 25 MG TAB PO PRN (09:00)
[2022-11-24] MEDS: LORATADINE 10 MG TAB PO SCH (09:44)
[2022-11-24] MEDS: LITHIUM CARBONATE 150 MG CAP PO SCH ×2 (09:44→20:44)
--- NOTE | 2022-11-24 11:39 | P.HP ---
Psychiatric H&P - . H&P Date: 11/24/22 History & Physical: Allergies Allergy/AdvReac Type Severity Reaction Status Date / Time nickel Allergy Rash/Hives Verified 11/24/22 00:31 Vital Signs Temp 97.4 F L 11/24/22 05:56 Pulse 64 11/24/22 05:56 Resp 18 11/24/22 05:56 BP 126/74 11/24/22 05:56 Pulse Ox 98 11/24/22 05:56 FiO2 Intake & Output 11/23/22 11/24/22 11/24/22 18:59 06:59 18:59 Weight 107.864 kg Laboratory Last Values Urine Opiates Screen Not Detected (NotDetected) 11/24/22 01:02 Ur Oxycodone Screen Not Detected (NotDetected) 11/24/22 01:02 Urine Methadone Screen Not Detected (NotDetected) 11/24/22 01:02 Ur Propoxyphene Screen Not Detected (NotDetected) 11/24/22 01:02 Ur Barbiturates Screen Not Detected (NotDetected) 11/24/22 01:02 U Tricyclic Antidepress Not Detected (NotDetected) 11/24/22 01:02 Ur Phencyclidine Scrn Not Detected (NotDetected) 11/24/22 01:02 Ur Amphetamines Screen Detected (NotDetected) H 11/24/22 01:02 U Methamphetamines Scrn Detected (NotDetected) H 11/24/22 01:02 U Benzodiazepines Scrn Not Detected (NotDetected) 11/24/22 01:02 Urine Cocaine Screen Not Detected (NotDetected) 11/24/22 01:02 U Marijuana (THC) Screen Detected (NotDetected) H 11/24/22 01:02 Coronavirus (PCR) Not Detected (Not Detectd) 11/24/22 02:13 11/24/22 11:38 IDENTIFYING DATA: Patient is a single, unemployed, homeless, 22-year-old male who presents to our hospital on 11/24/2022 on his own volition for suicidal ideation. HPI: Patient presented to the hospital on 11/24/2022 with a chief complaint of suicidal ideation the plan to overdose in the context of homelessness and nonadherence with outpatient treatment. The patient reported to the EPS nurse that he has been abusing methamphetamines and smoking marijuana. He has also been nonadherent with any outpatient follow up appointments or taking his medications. He was noted by the EPS nurse to appear tired, disheveled, with very poor body odor. Patient signed himself voluntarily to the psychiatric unit. Upon evaluation by this provider, the patient reports that he has been nonadherent with any treatment since he was last discharged in September. He states that he has been dealing with his homelessness and has been struggling with his substance use. He does admit to using methamphetamines a few days prior to his presentation to the emergency department. He is currently endorsing suicidal ideation with a plan to overdose. He is denying any homicidal ideation. In regards to depressive symptoms, the patient reports that he has had poor sleep, poor energy, poor appetite, hopelessness, helplessness, and suicidal ideation. He also reports the inability to care for himself as he has not been addressing any hygiene and grooming issues. He is not endorsing any significant symptoms of eloisa or hypomania. He denies any increased goal- directed activity, grandiosity, or excessive energy. He reports no auditory or visual hallucinations. He denies any paranoia or other delusions. The patient is agreeable for voluntary psychiatric admission and signed adult formal voluntary. PAST PSYCHIATRIC HISTORY: Patient has previous diagnoses of major depressive disorder, polysubstance abuse including cannabis, cocaine, methamphetamines, tobacco, and borderline personality disorder. He was last discharged on a regimen of Zoloft, lithium, and Seroquel however admits to medication nonadherence. He was last discharged from our psychiatric unit on 10/07/2022 after a 3 day stay for similar issue. Patient is nonadherent with his outpatient psychiatric follow up with [facility]. Patient reports prior attempts at suicide by overdose. PMH: ALLERGIES: Nickel CHEMICAL DEPENDENCY HISTORY: Alcohol: Denies Cocaine: Started using in Sep 2020. Peak use: Smoking a handful a day. Last use was January 2022. Methamphetamine: Reports last use was a few days prior to this admission. On and off use For the past 2 years. Suboxone and Fentanyl once in the past. Fentanyl use resulted in unintentional OD. Tobacco: 0.25 ppd Cannabis: Occasional Denies using other substances FAMILY PSYCHIATRIC/SUBSTANCE USE HISTORY: Sister- Depression SOCIAL HISTORY: Patient reports no significant changes from last admission: "Patient was born and raised in [place], [place]. He grew up with mother and 6 siblings. He says his father was not involved in their care and left his mother. Patient was 4 years old when parents were . Patient's mother lives in [place] now. He has been staying in [place], [place] for the past 7 years off and on. He reports a 10th grade education. He was incarcerated for 6 months due to unpaid child support and 3 months for burglary. He has one 3-year-old son who currently lives in [place]. He does not talk to the mother of his child. No other children. 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 Not on SSI. He denies any source of income at this time; is trying to find a job. " Currently is homeless and has been staying inbetween different friends' and ac quaintences' homes. MENTAL STATUS EXAM: General Appearance: Patient appears to be stated age is alert, directable, and attempts to cooperate. Patient appears to have poor hygiene and grooming. Behavior: Patient is seated without any agitated behavior. Poor eye contact. Speech: Patient's speech is fluent and nonpressured. Mood/Affect: Patient reports their mood is depressed, affect is congruent and blunted. Suicidality/Homicidality: Patient denies having any homicidal ideation intent or plan. Endorses SI with no plan. Perceptions: Patient denies any visual hallucinations and denies any auditory hallucinations Though content/process: There is no evidence of any delusional thought content and thought process is linear and goal-directed. Memory and concentration: AOX3, grossly intact for the purposes of this session. Can spell "WORLD" backwards Judgment and insight: Poor STRENGTHS/WEAKNESSES: Strength is patient is resilient and resourceful. Weakness is patient is actively using methamphetamines and is nonadherent with treatment. INTELLECT: average IMPRESSIONS: Major depressive disorder, recurrent, severe, without psychotic features Methamphetamine use disorder, severe Cluster B Personality Disorder Cocaine use disorder, in early remission Tobacco use disorder, mild Cannabis use disorder, mild PLAN: -Patient is admitted under voluntary status to [facility] for stabilization of psychiatric symptoms and safety. Patient signed adult voluntary form and medication consent and is placed in patient's chart. -Medications : Discontinue Seroquel. Start invega 3 mg at bedtime with plans to transition to PAUL due to nonadherence with treatment. [place] 150 mg twice daily for mood stability and suicidal ideation Zoloft 50 mg at bedtime for depression/anxiety. -Vistaril and Haldol PRN for agitation/aggression -Patient was counselled on substance abuse and desired to cut back on use -Patient was informed of the risks, benefits and side effects of the medication and patient verbally consented to taking the medications. Patient signed med consent form and was placed in chart. -Internal Medicine consult to perform medical evaluation and physical. -NRT - nicotine patch -SW on board for discharge planning. Encourage patient to participate in groups to work on coping skills.
[2022-11-24] MEDS: MELATONIN 5 MG TABLET PO SCH (20:44)
[2022-11-24] MEDS: SERTRALINE 50 MG TAB PO SCH (20:44)
[2022-11-24] MEDS: PALIPERIDONE 3 MG TAB.ER.24 PO SCH (20:44)
[2022-11-24] MEDS ORDERED: QUEtiapine 100 MG TAB PO SCH (21:00)
[2022-11-25] MEDS: LITHIUM CARBONATE 150 MG CAP PO SCH (08:44)
[2022-11-25] MEDS: LORATADINE 10 MG TAB PO SCH (08:45)
--- NOTE | 2022-11-25 10:22 | P.PN ---
Progress Note - Text Progress Note Date: 11/25/22 Interval History: Patient was seen resting in bed and was directable and agreeable to speak with sign writer letterer or painter in the office. Currently the patient is reporting an improvement in his mood. He reports no suicidal or homicidal ideation, intention, and/or plan today. He reports no auditory or visual hallucinations. He reports no paranoia or other delusions. He has been adherent with his medications and is not reporting any significant side effect. He is agreeable to transitioning to [facility] invega sustenna. Mental Status Exam: General Appearance: Patient appears to be stated age is alert, directable, and cooperative. Behavior: Patient is calmly seated without any agitated behavior. Intermittent eye contact. Speech: Patient's speech is fluent and nonpressured. Mood/Affect: Mood is improving mildly, affect is congruent and constricted. Suicidality/Homicidality: Patient denies having any suicidal or homicidal ideation intent or plan. Perceptions: Patient denies any visual hallucinations and denies any auditory hallucinations Though content/process: There is no evidence of any delusional thought content and thought process is linear and goal-directed. Memory and concentration: AOX3, grossly intact for the purposes of this session Judgment and insight: Improving mildly Laboratory Results Urine Opiates Screen Not Detected (NotDetected) 11/24/22 01:02 Ur Oxycodone Screen Not Detected (NotDetected) 11/24/22 01:02 Urine Methadone Screen Not Detected (NotDetected) 11/24/22 01:02 Ur Propoxyphene Screen Not Detected (NotDetected) 11/24/22 01:02 Ur Barbiturates Screen Not Detected (NotDetected) 11/24/22 01:02 U Tricyclic Antidepress Not Detected (NotDetected) 11/24/22 01:02 Ur Phencyclidine Scrn Not Detected (NotDetected) 11/24/22 01:02 Ur Amphetamines Screen Detected (NotDetected) H 11/24/22 01:02 U Methamphetamines Scrn Detected (NotDetected) H 11/24/22 01:02 U Benzodiazepines Scrn Not Detected (NotDetected) 11/24/22 01:02 Urine Cocaine Screen Not Detected (NotDetected) 11/24/22 01:02 U Marijuana (THC) Screen Detected (NotDetected) H 11/24/22 01:02 Coronavirus (PCR) Not Detected (Not Detectd) 11/24/22 02:13 Assessment Major depressive disorder, recurrent, severe, without psychotic features Methamphetamine use disorder, severe Cluster B Personality Disorder Cocaine use disorder, in early remission Tobacco use disorder, mild Cannabis use disorder, mild Plan: -Patient continues to meet criteria for inpatient psychiatric admission for symptom stabilization and safety. Patient has signed adult voluntary form and medication consent and was placed in patient's chart. -Medications: Increase invega to 6 mg at bedtime for mood stabilization Increase lithium to 300 mg twice daily for mood stabilization. Continue zoloft 50 mg at bedtime for anxiety/depression -When necessary vistaril and haldol for agitation/aggression. -NRT - nicotine patch -SW on board for discharge planning. Encouraged the patient to participate in milieu.
[2022-11-25 11:47] LABS: Basophils # (A) 0.1 k/uL (0-0.2); Basophils % (A) 1 %; Eosinophils # (A) 0.1 k/uL (0-0.7); Eosinophils % (A) 1 %; HGB 14.4 gm/dL (13.0-17.5); Lymphocytes # (A) 1.9 k/uL (1.0-4.8); Lymphocytes % (A) 25 %; MCH 28.8 pg (25.0-35.0); MCHC 32.7 g/dL (31.0-37.0); MCV 88.2 fL (80.0-100.0); Mean Platelet Volume 8.3; Monocytes # (A) 0.5 k/uL (0-1.0); Monocytes % (A) 7 %; Neutrophils # (A) 4.7 k/uL (1.3-7.7); Neutrophils % (A) 64 %; Platelet Count 315 k/uL (150-450); RBC 4.98 m/uL (4.30-5.90); RDW 13.1 % (11.5-15.5); WBC 7.3 k/uL (3.8-10.6)
[2022-11-25 12:09] LABS: ALT 22 U/L (4-49); AST 24 U/L (17-59); African American GFR (CKD) >90 (>60 ml/min/1.73 sqM); Albumin 3.8 g/dL (3.5-5.0); Alkaline Phosphatase 67 U/L (38-126); Anion Gap 6 mmol/L; Blood Urea Nitrogen 9 mg/dL (9-20); Calcium 9.1 mg/dL (8.4-10.2); Carbon Dioxide 27 mmol/L (22-30); Chloride 108 mmol/L (98-107); Glucose 79 mg/dL (74-99); Non-African American GFR(CKD) >90 (>60 ml/min/1.73 sqM); Potassium 4.6 mmol/L (3.5-5.1); Sodium 141 mmol/L (137-145); Total Bilirubin 0.3 mg/dL (0.2-1.3); Total Protein 6.3 g/dL (6.3-8.2)
[2022-11-25] MEDS: SERTRALINE 50 MG TAB PO SCH (20:14)
[2022-11-25] MEDS: LITHIUM CARBONATE 300 MG CAP PO SCH (20:14)
[2022-11-25] MEDS: MELATONIN 5 MG TABLET PO SCH (20:14)
[2022-11-25] MEDS: PALIPERIDONE 3 MG TAB.ER.24 PO SCH (20:14)
--- NOTE | 2022-11-26 01:46 | P.MDCNMH ---
History of Present Illness H&P Date: 11/25/22 Chief Complaint: medical eval 22 year old male with depression , bipolar patient coming in for suicidal ideaiton and depression patient denies any auditory or visual hallucinations he denies any fever, chills, chest pain , trouble breathing, nausea vomiting, abd pain , changes in bowel or urinary habits he reports rash and dryness of his feet , due to not changing his socks for long time , associated with some itching he admits to smoking, and recently quiting meth , denies any alcohol Review of Systems Pertinent positives as noted in HPI. All other systems were reviewed and are negative Past Medical History Past Medical History: No Reported History History of Any Multi-Drug Resistant Organisms: None Reported Past Surgical History: No Surgical Hx Reported Past Anesthesia/Blood Transfusion Reactions: No Reported Reaction Past Psychological History: Bipolar, Depression Smoking Status: Current every day smoker Past Alcohol Use History: None Reported Past Drug Use History: Cocaine, Marijuana, Methamphetamine Additional Drug Use History / Comment(s): Admits to relapsing 7 days ago after being sober. - Past Family History family Family Medical History: COPD Additional Family Medical History / Comment(s): no reported cancer or heart disease Medications and Allergies Home Medications Medication Instructions Recorded Confirmed Type Loratadine [Claritin] 10 mg PO DAILY 15 Days tab 08/19/22 09/18/22 Rx Nicotine Gum (Polacrilex) 2 mg BUCCAL Q4HR PRN 15 Days 08/28/22 09/18/22 Rx [Nicorette] pieceofgum Melatonin 5 mg PO HS 30 Days tab 09/16/22 09/18/22 Rx Benzocaine 20 % Gel [Orajel] 1 applic MM DAILY PRN 7 Days #7 10/07/22 Rx each [place] Carbonate 150 mg PO BID 15 Days #30 cap 10/07/22 Rx QUEtiapine [SEROquel] 300 mg PO HS 15 Days #45 tab 10/07/22 Rx Sertraline [Zoloft] 200 mg PO DAILY 15 Days #30 tab 10/07/22 Rx Allergies Allergy/AdvReac Type Severity Reaction Status Date / Time nickel Allergy Rash/Hives Verified 11/24/22 00:31 Physical Exam Vitals: Vital Signs Temp Pulse Resp BP Pulse Ox 11/25/22 06:39 97.2 F L 53 L 16 126/60 97 Constitutional: No acute distress, conversant, pleasant Eyes: Anicteric sclerae, moist conjunctiva, Pupils equal round reactive to light ENMT: NC/AT Oropharynx clear, no erythema, or exudates Neck: Supple, no masses, or JVD No carotid bruits No thyromegaly Lungs: Clear to auscultation Clear to percussion Normal respiratory effort, no accessory muscle use Cardiovascular: Heart regular in rate and rhythm, No murmurs, gallops, or rubs No peripheral edema Abdominal: Soft Nontender, no guarding, rebound or rigidity Abdomen moving with respiration Normoactive bowel sounds No hepatomegaly, No splenomegaly No palpable mass No abdominal wall hernia noted Skin: erythematus rash with cracking and dryness of the skin no drainage , no open wounds right foot worse than left . mainly over the distal portion of the dorsum of the foot, looks like eczematus changs Extremities: No digital cyanosis No clubbing Pedal pulses intact and symmetrical Radial pulses intact and symmetrical No calf tenderness Psychiatric: Alert and oriented to person, place and time Neuro Muscles Strength 5/5 in all 4 extremities Sensation to light touch grossly present throughout Cranial nerves II-XII grossly intact Lymphatics: no palpable cervical or supraclavicular lymph nodes Cranial Nerve Examination - Cranial Nerves Cranial Nerve II- Optic: Intact Cranial Nerve III- Oculomotor: Intact Cranial Nerve IV- Trochlear: Intact Cranial Nerve V- Trigeminal: Intact Cranial Nerve - Abducens: Intact Cranial Nerve VII- Facial: Intact Cranial Nerve VIII- Auditory: Intact Cranial Nerve IX- Glossopharyngeal: Intact Cranial Nerve X- Vagus: Intact Cranial Nerve XI- Accessory: Intact Cranial Nerve XII- Hypoglossal: Intact Results CBC & Chem 7: 11/25/22 11:11 11/25/22 11:11 Labs: Abnormal Lab Results - Last 24 Hours (Table) 11/25/22 Range/Units 11:11 Chloride 108 H (98-107) mmol/L Assessment and Plan Assessment: eczema of the dorsum of the foot possible athlete foot component clotrimazol BID cream eucerin topical cream TID bilaterally suicidal ideation and depression management per psyh tobacco smoking counseled to quit smoking NRT offered polysubstance abuse counseled to quit drug of abuse blood work reviewed and overall unremarkable thank you for this consultation
[2022-11-26 07:00] VITALS: RESP 14
[2022-11-26] MEDS: LITHIUM CARBONATE 300 MG CAP PO SCH ×2 (08:34→20:16)
[2022-11-26] MEDS: CLOTRIMAZOLE 1% CREAM 30 GM TUBE TOPICAL SCH ×3 (08:34→22:49)
[2022-11-26] MEDS: LORATADINE 10 MG TAB PO SCH (08:34)
--- NOTE | 2022-11-26 10:20 | P.PN ---
Progress Note - Text Progress Note Date: 11/26/22 Interval History: Patient was seen resting in bed and was directable and agreeable to speak with mortgage underwriter in his room. The patient reports a significant improvement in his mood. He states he plans to move to [place] with a friend of his. He states a friend would give him a ride there this weekend. He reports a desire to start fresh there. He denies any suicidal or homicidal ideation, intention, and/or plan. He reports no auditory or visual hallucinations. He reports no paranoia or other delusions. He states he will likely pursue rehab once he is in [place]. Mental Status Exam: General Appearance: Patient appears to be stated age is alert, directable, and cooperative. Behavior: Patient is calmly seated without any agitated behavior. Good eye contact. Speech: Patient's speech is fluent and nonpressured. Mood/Affect: Mood is improving mildly, affect is congruent and with more range today. Suicidality/Homicidality: Patient denies having any suicidal or homicidal ideation intent or plan. Perceptions: Patient denies any visual hallucinations and denies any auditory hallucinations Though content/process: There is no evidence of any delusional thought content and thought process is linear and goal-directed. Memory and concentration: AOX3, grossly intact for the purposes of this session Judgment and insight: Improving mildly Vital Signs Temp 97.6 F 11/26/22 06:28 Pulse 66 11/26/22 06:28 Resp 14 11/26/22 06:28 BP 127/58 11/26/22 06:28 Pulse Ox 97 11/25/22 06:39 FiO2 Laboratory Results WBC 7.3 k/uL (3.8-10.6) 11/25/22 11:11 RBC 4.98 m/uL (4.30-5.90) 11/25/22 11:11 Hgb 14.4 gm/dL (13.0-17.5) 11/25/22 11:11 Hct 44.0 % (39.0-53.0) 11/25/22 11:11 MCV 88.2 fL (80.0-100.0) 11/25/22 11:11 MCH 28.8 pg (25.0-35.0) 11/25/22 11:11 MCHC 32.7 g/dL (31.0-37.0) 11/25/22 11:11 RDW 13.1 % (11.5-15.5) 11/25/22 11:11 Plt Count 315 k/uL (150-450) 11/25/22 11:11 MPV 8.3 11/25/22 11:11 Neutrophils % 64 % 11/25/22 11:11 Lymphocytes % 25 % 11/25/22 11:11 Monocytes % 7 % 11/25/22 11:11 Eosinophils % 1 % 11/25/22 11:11 Basophils % 1 % 11/25/22 11:11 Neutrophils # 4.7 k/uL (1.3-7.7) 11/25/22 11:11 Lymphocytes # 1.9 k/uL (1.0-4.8) 11/25/22 11:11 Monocytes # 0.5 k/uL (0-1.0) 11/25/22 11:11 Eosinophils # 0.1 k/uL (0-0.7) 11/25/22 11:11 Basophils # 0.1 k/uL (0-0.2) 11/25/22 11:11 Sodium 141 mmol/L (137-145) 11/25/22 11:11 Potassium 4.6 mmol/L (3.5-5.1) 11/25/22 11:11 Chloride 108 mmol/L (98-107) H 11/25/22 11:11 Carbon Dioxide 27 mmol/L (22-30) 11/25/22 11:11 Anion Gap 6 mmol/L 11/25/22 11:11 BUN 9 mg/dL (9-20) 11/25/22 11:11 Creatinine 0.76 mg/dL (0.66-1.25) 11/25/22 11:11 Est GFR (CKD-EPI)AfAm >90 (>60 ml/min/1.73 sqM) 11/25/22 11:11 Est GFR (CKD-EPI)NonAf >90 (>60 ml/min/1.73 sqM) 11/25/22 11:11 Glucose 79 mg/dL (74-99) 11/25/22 11:11 Calcium 9.1 mg/dL (8.4-10.2) 11/25/22 11:11 Total Bilirubin 0.3 mg/dL (0.2-1.3) 11/25/22 11:11 AST 24 U/L (17-59) 11/25/22 11:11 ALT 22 U/L (4-49) 11/25/22 11:11 Alkaline Phosphatase 67 U/L (38-126) 11/25/22 11:11 Total Protein 6.3 g/dL (6.3-8.2) 11/25/22 11:11 Albumin 3.8 g/dL (3.5-5.0) 11/25/22 11:11 Urine Opiates Screen Not Detected (NotDetected) 11/24/22 01:02 Ur Oxycodone Screen Not Detected (NotDetected) 11/24/22 01:02 Urine Methadone Screen Not Detected (NotDetected) 11/24/22 01:02 Ur Propoxyphene Screen Not Detected (NotDetected) 11/24/22 01:02 Ur Barbiturates Screen Not Detected (NotDetected) 11/24/22 01:02 U Tricyclic Antidepress Not Detected (NotDetected) 11/24/22 01:02 Ur Phencyclidine Scrn Not Detected (NotDetected) 11/24/22 01:02 Ur Amphetamines Screen Detected (NotDetected) H 11/24/22 01:02 U Methamphetamines Scrn Detected (NotDetected) H 11/24/22 01:02 U Benzodiazepines Scrn Not Detected (NotDetected) 11/24/22 01:02 Urine Cocaine Screen Not Detected (NotDetected) 11/24/22 01:02 U Marijuana (THC) Screen Detected (NotDetected) H 11/24/22 01:02 Coronavirus (PCR) Not Detected (Not Detectd) 11/24/22 02:13 Assessment Major depressive disorder, recurrent, severe, without psychotic features Methamphetamine use disorder, severe Cluster B Personality Disorder Cocaine use disorder, in early remission Tobacco use disorder, mild Cannabis use disorder, mild Plan: -Patient continues to meet criteria for inpatient psychiatric admission for symptom stabilization and safety. Patient has signed adult voluntary form and medication consent and was placed in patient's chart. -Medications: Increase invega to 6 mg at bedtime for mood stabilization Continue [place] 300 mg twice daily for mood stabilization. Continue zoloft 50 mg at bedtime for anxiety/depression -When necessary vistaril and haldol for agitation/aggression. -NRT - nicotine patch -SW on board for discharge planning. Encouraged the patient to participate in milieu.
[2022-11-26] MEDS: SERTRALINE 50 MG TAB PO SCH (20:16)
[2022-11-26] MEDS: MELATONIN 5 MG TABLET PO SCH (20:16)
[2022-11-26] MEDS ORDERED: PALIPERIDONE 6 MG TAB.ER.24 PO SCH (21:00)
[2022-11-27 06:42] VITALS: BP 122/68; PULSE 56; TEMP 97.4
[2022-11-27] MEDS: CLOTRIMAZOLE 1% CREAM 30 GM TUBE TOPICAL SCH (08:49)
[2022-11-27] MEDS: LORATADINE 10 MG TAB PO SCH (08:49)
[2022-11-27] MEDS: LITHIUM CARBONATE 300 MG CAP PO SCH (08:49)
--- NOTE | 2022-11-27 11:17 | P.DS ---
Providers Date of admission: 11/24/22 04:27 Expected date of discharge: 11/27/22 Attending physician: Ryan Anthony MD Consults: 11/24/22 04:38 Consult Physician Routine Consulting Provider: Lara Bautista Consult Reason/Comments: h&p medical managment Do you want consulting provider notified?: Already Contacted Primary care physician: Stated None - Discharge Diagnosis(es) (1) Major depressive disorder, recurrent severe without psychotic features Status: Acute Priority: High (2) Cluster B personality disorder Status: Chronic Priority: High (3) Methamphetamine use disorder, severe Status: Chronic Priority: Medium (4) Cannabis use disorder, mild, abuse Status: Chronic Priority: Medium (5) Cocaine use disorder in remission Status: Chronic Priority: Medium (6) Tobacco use disorder Status: Chronic Priority: Medium Hospital Course: Admission HPI: Patient is a single, unemployed, homeless, 22-year-old male who presents to our hospital on 11/24/2022 on his own volition for suicidal ideation. Patient presented to the hospital on 11/24/2022 with a chief complaint of suicidal ideation the plan to overdose in the context of homelessness and nonadherence with outpatient treatment. The patient reported to the EPS nurse that he has been abusing methamphetamines and smoking marijuana. He has also been nonadherent with any outpatient follow up appointments or taking his medications. He was noted by the EPS nurse to appear tired, disheveled, with very poor body odor. Patient signed himself voluntarily to the psychiatric unit. Upon evaluation by this provider, the patient reports that he has been nonadherent with any treatment since he was last discharged in September. He states that he has been dealing with his homelessness and has been struggling with his substance use. He does admit to using methamphetamines a few days prior to his presentation to the emergency department. He is currently endorsing suicidal ideation with a plan to overdose. He is denying any homicidal ideation. In regards to depressive symptoms, the patient reports that he has had poor sleep, poor energy, poor appetite, hopelessness, helplessness, and suicidal ideation. He also reports the inability to care for himself as he has not been addressing any hygiene and grooming issues. He is not endorsing any significant symptoms of eloisa or hypomania. He denies any increased goal- directed activity, grandiosity, or excessive energy. He reports no auditory or visual hallucinations. He denies any paranoia or other delusions. The patient is agreeable for voluntary psychiatric admission and signed adult formal voluntary. Patient has previous diagnoses of major depressive disorder, polysubstance abuse including cannabis, cocaine, methamphetamines, tobacco, and borderline personality disorder. He was last discharged on a regimen of Zoloft, lithium, and Seroquel however admits to medication nonadherence. He was last discharged from our psychiatric unit on 10/07/2022 after a 3 day stay for similar issue. Patient is nonadherent with his outpatient psychiatric follow up with [facility]. Patient reports prior attempts at suicide by overdose. Hospital course: Upon admission to the unit patient was initially presenting as depressed with very poor hygiene and grooming. Patient was however directable and agreeable to commence treatment. Patient got along well with other patients on the unit and followed unit protocol. Patient was compliant with the medications and denied any side effects throughout hospital course. Patient was started on Invega with consideration to transition to a long-acting injection due to his nonadherence with treatment, lithium for suicidal ideation and mood stabilization, and Zoloft for depression and anxiety. Patient spoke of his stressors and engaged in therapy both group and individual. Patient was also seen by medical team for history and physical exam. Over the course the hospitalization, the patient displayed significant improvement in regards to his target symptoms of depression including improved hygiene and grooming. The patient also became more future and goal oriented. He stated his intention to move down to [place] started [place]. There is question as to whether the patient is evading legal repercussions as he does report to staff that he does have a warrant out for his arrest. On the day of discharge, the patient is not endorsing any suicidal or homicidal ideation, intention he is not reporting any auditory or visual hallucinations. He is denying any paranoia or delusions. He has been adherent with his medications and is not endorsing any significant side effects. The patient does have a significant history of substance abuse and was counseled by great length on abstaining from all substances including alcohol, marijuana, methamphetamines, and cocaine. The patient was offered however declined inpatient substance-abuse rehabilitation. He reports no access to firearms or other weapons. Patient was counseled on importance of medication adherence and appropriate outpatient follow-up. As the patient longer met criteria for continued inpatient psychiatric hospitalization, he was subsequently discharged. He denied any chest pain, SOB, palpitations, or physical concerns on the day of discharge. Mental status exam: General Appearance: Patient appears to be stated age is alert, pleasant, and cooperative. Patient is in no acute distress and has fair hygiene and grooming Behavior: Patient is calmly seated without any agitated behavior. Speech: Patient's speech is fluent and nonpressured. Mood/Affect: Patient reports their mood is "much better", affect is congruent and euthymic. Expansive. Suicidality/Homicidality: Patient denies having any suicidal or homicidal ideation intent or plan. Perceptions: Patient denies any auditory or visual hallucinations. Though content/process: There is no evidence of any delusional thought content and thought process is linear and goal-directed. Memory and concentration: AOX3, grossly intact for the purposes of this session. Can spell "WORLD" backwards correctly. 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 Patient will remain at chronically elevated risk due to his substance abuse and antisocial personality disorder. -Continue medications: [place] 300 mg by mouth twice a day for mood stabilization and suicidal ideation Melatonin 5 mg by mouth at bedtime for insomnia Invega 6 mg by mouth at bedtime for mood stabilization/psychosis Zoloft 50 mg by mouth daily for depression/anxiety -Patient was counseled on the need for medication compliance and appropriate follow-up at mental health and also primary care for medical issues. Patient verbalized understanding and agreed. -Social work to arrange for and conduct family meeting to ensure safety upon discharge and answer any questions/concerns. Social work also to arrange for patients follow up appointments for psychiatric care along with follow up with primary care provider. -Patient counseled on abstaining from recreational drugs and marijuana and alcohol. Was informed/educated on the adverse effects on their physical and mental health. Patient verbally agreed and understood. Patient was offered substance abuse treatment however declined at this time. -Patient was instructed to return to the hospital or seek immediate medical care if their psychiatric or medical symptoms do worsen or reoccur. -Psychoeducation and supportive therapy provided to patient. Risks and benefits of pharmacological treatment versus the risks and benefits of nontreatment weight and discussed. Informed consent discussion held. Common side effects of psychotropics discussed such as, but not limited to headache, GI disturbance, sexual dysfunction, movement disorders, sedation, and orthostatic hypotension. Life threatening and blackbox warnings of prescribed medications also discussed. Potential risks of operating a vehicle or heavy machinery discussed with patient at length. Advised on importance of compliance and a reliable and responsible manner. Patient advised to review FDA consumer labeling of all medications prior to taking. Patient verbalized understanding of potential risks, and agrees with current treatment plan. Patient advised to medically contact physician/emergency personnel if any acute changes in condition occur. Vital Signs Temp 97.4 F L 11/27/22 06:27 Pulse 56 L 11/27/22 06:27 Resp 14 11/27/22 06:27 BP 122/68 11/27/22 06:27 Pulse Ox 97 11/25/22 06:39 FiO2 Laboratory Results WBC 7.3 k/uL (3.8-10.6) 11/25/22 11:11 RBC 4.98 m/uL (4.30-5.90) 11/25/22 11:11 Hgb 14.4 gm/dL (13.0-17.5) 11/25/22 11:11 Hct 44.0 % (39.0-53.0) 11/25/22 11:11 MCV 88.2 fL (80.0-100.0) 11/25/22 11:11 MCH 28.8 pg (25.0-35.0) 11/25/22 11:11 MCHC 32.7 g/dL (31.0-37.0) 11/25/22 11:11 RDW 13.1 % (11.5-15.5) 11/25/22 11:11 Plt Count 315 k/uL (150-450) 11/25/22 11:11 MPV 8.3 11/25/22 11:11 Neutrophils % 64 % 11/25/22 11:11 Lymphocytes % 25 % 11/25/22 11:11 Monocytes % 7 % 11/25/22 11:11 Eosinophils % 1 % 11/25/22 11:11 Basophils % 1 % 11/25/22 11:11 Neutrophils # 4.7 k/uL (1.3-7.7) 11/25/22 11:11 Lymphocytes # 1.9 k/uL (1.0-4.8) 11/25/22 11:11 Monocytes # 0.5 k/uL (0-1.0) 11/25/22 11:11 Eosinophils # 0.1 k/uL (0-0.7) 11/25/22 11:11 Basophils # 0.1 k/uL (0-0.2) 11/25/22 11:11 Sodium 141 mmol/L (137-145) 11/25/22 11:11 Potassium 4.6 mmol/L (3.5-5.1) 11/25/22 11:11 Chloride 108 mmol/L (98-107) H 11/25/22 11:11 Carbon Dioxide 27 mmol/L (22-30) 11/25/22 11:11 Anion Gap 6 mmol/L 11/25/22 11:11 BUN 9 mg/dL (9-20) 11/25/22 11:11 Creatinine 0.76 mg/dL (0.66-1.25) 11/25/22 11:11 Est GFR (CKD-EPI)AfAm >90 (>60 ml/min/1.73 sqM) 11/25/22 11:11 Est GFR (CKD-EPI)NonAf >90 (>60 ml/min/1.73 sqM) 11/25/22 11:11 Glucose 79 mg/dL (74-99) 11/25/22 11:11 Calcium 9.1 mg/dL (8.4-10.2) 11/25/22 11:11 Total Bilirubin 0.3 mg/dL (0.2-1.3) 11/25/22 11:11 AST 24 U/L (17-59) 11/25/22 11:11 ALT 22 U/L (4-49) 11/25/22 11:11 Alkaline Phosphatase 67 U/L (38-126) 11/25/22 11:11 Total Protein 6.3 g/dL (6.3-8.2) 11/25/22 11:11 Albumin 3.8 g/dL (3.5-5.0) 11/25/22 11:11 Urine Opiates Screen Not Detected (NotDetected) 11/24/22 01:02 Ur Oxycodone Screen Not Detected (NotDetected) 11/24/22 01:02 Urine Methadone Screen Not Detected (NotDetected) 11/24/22 01:02 Ur Propoxyphene Screen Not Detected (NotDetected) 11/24/22 01:02 Ur Barbiturates Screen Not Detected (NotDetected) 11/24/22 01:02 U Tricyclic Antidepress Not Detected (NotDetected) 11/24/22 01:02 Ur Phencyclidine Scrn Not Detected (NotDetected) 11/24/22 01:02 Ur Amphetamines Screen Detected (NotDetected) H 11/24/22 01:02 U Methamphetamines Scrn Detected (NotDetected) H 11/24/22 01:02 U Benzodiazepines Scrn Not Detected (NotDetected) 11/24/22 01:02 Urine Cocaine Screen Not Detected (NotDetected) 11/24/22 01:02 U Marijuana (THC) Screen Detected (NotDetected) H 11/24/22 01:02 Coronavirus (PCR) Not Detected (Not Detectd) 11/24/22 02:13 Allergies Allergy/AdvReac Type Severity Reaction Status Date / Time nickel Allergy Rash/Hives Verified 11/24/22 00:31 Patient Condition at Discharge: Stable Plan - Discharge Summary Discharge Rx Participant: Yes New Discharge Prescriptions: New [place] Carbonate 300 mg PO BID 30 Days #60 cap Melatonin 5 mg PO HS 30 Days #30 tab Paliperidone [Invega] 6 mg PO HS 30 Days #30 tab Sertraline [Zoloft] 50 mg PO HS 30 Days #30 tab Continue Loratadine [Claritin] 10 mg PO DAILY 15 Days tab Discontinued Nicotine Gum (Polacrilex) [Nicorette] 2 mg BUCCAL Q4HR PRN 15 Days pieceofgum PRN Reason: Nicotine Cravings Melatonin 5 mg PO HS 30 Days tab [place] Carbonate 150 mg PO BID 15 Days #30 cap QUEtiapine [SEROquel] 300 mg PO HS 15 Days #45 tab Sertraline [Zoloft] 200 mg PO DAILY 15 Days #30 tab Benzocaine 20 % Gel [Orajel] 1 applic MM DAILY PRN 7 Days #7 each PRN Reason: Oral Pain Discharge Medication List Loratadine [Claritin] 10 mg PO DAILY 15 Days tab 12/13/22 [Rx] [place] Carbonate 300 mg PO BID 30 Days #60 cap 11/27/22 [Rx] Melatonin 5 mg PO HS 30 Days #30 tab 11/27/22 [Rx] Paliperidone [Invega] 6 mg PO HS 30 Days #30 tab 11/27/22 [Rx] Sertraline [Zoloft] 50 mg PO HS 30 Days #30 tab 11/27/22 [Rx] Follow up Appointment(s)/Referral(s): [facility] [Other] - 1 Week [facility] [NON-STAFF] - 1 Week Patient Instructions/Handouts: How to Stop Smoking (DC), Bipolar Disorder (DC), Psychotic Disorder (DC) Activity/Diet/Wound Care/Special Instructions: Avoid the use of street drugs and alcohol. Take all medications as prescribed. When you are in need of refills on your medications, please contact your medical provider and/or outpatient psychiatrist to have this done. Please go to scheduled outpatient appointments for aftercare treatment. If symptoms return or become worse, call the crisis line at and/or go to the nearest emergency room for evaluation. Discharge Disposition: HOME SELF-CARE
== END 2022-11-27 10:34 | disposition home or self-care (01) | DRG 751 ==
LOC: EC 00:21 → 3MHU 04:27
PROVIDERS: ADMIT Psychiatry & Neurology Psychiatry; ATTEND Psychiatry & Neurology Psychiatry
DX: F33.2 Major depressive disorder, recurrent severe without psychotic features (principal); R45.1 Restlessness and agitation; F12.10 Cannabis abuse, uncomplicated; F14.11 Cocaine abuse, in remission; F15.10 Other stimulant abuse, uncomplicated; F17.210 Nicotine dependence, cigarettes, uncomplicated; F60.2 Antisocial personality disorder; F60.3 Borderline personality disorder; F60.89 Other specific personality disorders; G47.00 Insomnia, unspecified; Z56.0 Unemployment, unspecified; R45.851 Suicidal ideations; Z59.00 Homelessness unspecified; Z79.899 Other long term (current) drug therapy; Z81.8 Family history of other mental and behavioral disorders; Z71.51 Drug abuse counseling and surveillance of drug abuser; Z20.822 Contact with and (suspected) exposure to COVID-19
CPT/HCPCS: 80053; 80306; 82075; 85025; 87635; 99285

== ENCOUNTER 2023-03-23 17:29 | Emergency (ER) | payer MEDICAID, OTHER ==
[2023-03-23 17:46] VITALS: BP 147/80
[2023-03-23 18:06] VITALS: RESP 22
[2023-03-23 18:12] VITALS: PULSE 113; TEMP 98.4
--- NOTE | 2023-03-23 18:32 | ED ---
General Adult HPI - General Chief complaint: Shortness of Breath Stated complaint: anxiety Time Seen by Provider: 03/23/23 17:50 Source: patient, RN notes reviewed, old records reviewed Mode of arrival: ambulatory Limitations: no limitations - History of Present Illness Initial comments: This is a 22-year-old male who presents emergency department stating that he did methamphetamine recently and now he has tingling in all of his extremities and wants to be evaluated as to why is having the tingling. Patient then tells me he wants to leave AGAINST MEDICAL ADVICE and go to another hospital because he doesn't believe I leave him yet I have knots anything to the patient other than while here. Patient then proceeded to tell me that everybody thinks she's guilty but is not patient denies any chest pain or difficulty breathing patient denies headache patient denies numbness weakness. Patient stable to tell me who he is where he is and what month it is. Patient denies any trauma. We got a report that the patient was recently using methamphetamine from EMS - Related Data Previous Rx's Medication Instructions Recorded Loratadine [Claritin] 10 mg PO DAILY 15 Days tab 08/19/22 [place] Carbonate 300 mg PO BID 30 Days #60 cap 11/27/22 Melatonin 5 mg PO HS 30 Days #30 tab 11/27/22 Paliperidone [Invega] 6 mg PO HS 30 Days #30 tab 11/27/22 Sertraline [Zoloft] 50 mg PO HS 30 Days #30 tab 11/27/22 Allergies Allergy/AdvReac Type Severity Reaction Status Date / Time nickel Allergy Rash/Hives Verified 03/23/23 17:46 Review of Systems ROS Statement: Those systems with pertinent positive or pertinent negative responses have been documented in the HPI. ROS Other: All systems not noted in ROS Statement are negative. Past Medical History Past Medical History: No Reported History History of Any Multi-Drug Resistant Organisms: None Reported Past Surgical History: No Surgical Hx Reported Past Anesthesia/Blood Transfusion Reactions: No Reported Reaction Past Psychological History: Bipolar, Depression Smoking Status: Current every day smoker Past Alcohol Use History: Daily Past Drug Use History: Cocaine, Marijuana, Methamphetamine - Past Family History family Family Medical History: COPD Additional Family Medical History / Comment(s): no reported cancer or heart disease General Exam - General Exam Comments Initial Comments: GENERAL: Patient is well-developed and well-nourished. Patient is nontoxic and well-hydr ated and is in no acute distress. Patient is very agitated ENT: Neck is soft and supple. No significant lymphadenopathy is noted. Oropharynx is clear. Moist mucous membranes. Neck has full range of motion without eliciting any pain. EYES: The sclera were anicteric and conjunctiva were pink and moist. Extraocular movements were intact and pupils were equal round and reactive to light. Ey elids were unremarkable. PULMONARY: Unlabored respirations. Good breath sounds bilaterally. No audible rales rhonchi or wheezing was noted. CARDIOVASCULAR: Patient is slightly tachycardic in the 110 bpm ABDOMEN: Soft and nontender with normal bowel sounds. SKIN: Skin is clear with no lesions or rashes and otherwise unremarkable. NEUROLOGIC: Patient is alert and oriented x3. Cranial nerves II through XII are grossly intact. Motor and sensory are also intact. Normal speech, volume and content. Symmetrical smile. MUSCULOSKELETAL: Normal extremities with adequate strength and full range of motion. LYMPHATICS: No significant lymphadenopathy is noted PSYCHIATRIC: Patient is agitated and very hyper. Patient denies any suicidal or homicidal ideations. Limitations: no limitations Course Vital Signs 03/23/23 03/23/23 03/23/23 17:39 17:56 18:12 Temperature 100.3 F H 98.4 F Pulse Rate 145 H 113 H Respiratory 20 22 22 Rate Blood Pressure 147/80 O2 Sat by Pulse 99 97 Oximetry Medical Decision Making - Medical Decision Making Was pt. sent in by a medical professional or institution (JOSE Leslie, AMMUNITION OFFICER, urgent care, hospital, or senior living...) When possible be specific @ -[No] Did you speak to anyone other than the patient for history (EMS, parent, family, police, friend...)? What history was obtained from this source @ -[No] Did you review nursing and triage notes (agree or disagree)? Why? @ -[I reviewed and agree with nursing and triage notes] Were old charts reviewed (outside hosp., previous admission, EMS record, old EKG, old radiological studies, urgent care reports/EKG's, senior living records)? Report findings @ -[No old charts were reviewed] Differential Diagnosis (chest pain, altered mental status, abdominal pain women, abdominal pain men, vaginal bleeding, weakness, fever, dyspnea, syncope, headache, dizziness, GI bleed, back pain, seizure, CVA, palpatations, mental health, musculoskeletal)? @ -[not applicable] EKG interpreted by me (3pts min.). @ -[As above] X-rays interpreted by me (1pt min.). @ -[None done] CT interpreted by me (1pt min.). @ -[None done] U/S interpreted by me (1pt. min.). @ -[None done] What testing was considered but not performed or refused? (CT, X-rays, U/S, labs)? Why? @ -[None] What meds were considered but not given or refused? Why? @ -[None] Did you discuss the management of the patient with other professionals (professionals i.e. , PA, AMMUNITION OFFICER, lab, RT, psych nurse, social insurance specialist, creative services manager, teacher, business development officer, case management director)? Give summary @ -[No] Was smoking cessation discussed for >3mins.? @ -[No] Was critical care preformed (if so, how long)? @ -[No] Were there social determinants of health that impacted care today? How? (Homelessness, low income, unemployed, alcoholism, drug addiction, transportation, low edu. Level, literacy, decrease access to med. care, half-way, rehab)? @ -[No] Was there de-escalation of care discussed even if they declined (Discuss DNR or withdrawal of care, Hospice)? DNR status @ -[No] What co-morbidities impacted this encounter? (DM, HTN, Smoking, COPD, CAD, Cancer, CVA, ARF, Chemo, Hep., AIDS, mental health diagnosis, sleep apnea, morbid obesity)? @ -[None] Was patient admitted / discharged? Hospital course, mention meds given and route, prescriptions, significant lab abnormalities, going to OR and other pertinent info. @ -I ordered lab work on this patient and drug screen and patient told nursing he didn't want to stay and walked out AGAINST MEDICAL ADVICE Undiagnosed new problem with uncertain prognosis? @ -[No] Drug Therapy requiring intensive monitoring for toxicity (Heparin, Nitro, Insulin, Cardizem)? @ -[No] Were any procedures done? @ -[No] Diagnosis/symptom? @ -Drug use Acute, or Chronic, or Acute on Chronic? @ -Acute Uncomplicated (without systemic symptoms) or Complicated (systemic symptoms)? @ -Complicated Side effects of treatment? @ -[No] Exacerbation, Progression, or Severe Exacerbation? @ -[No] Poses a threat to life or bodily function? How? (Chest pain, [place], HI, pneumonia, PE, COPD, DKA, ARF, appy, cholecystitis, CVA, Diverticulitis, Homicidal, Suicidal, threat to staff... and all critical care pts) @ Yes considering I don't know the problem with this patient in the left AMA anything is possible including Disposition Clinical Impression: Drug abuse Disposition: LEFT AGAINST MEDICAL ADVICE Referrals: None,Stated [Primary Care Provider] - 1-2 days Time of Disposition: 19:15
== END 2023-03-23 18:45 | disposition left against medical advice (07) ==
LOC: EC 17:29
DX: F19.10 Other psychoactive substance abuse, uncomplicated (principal); F17.200 Nicotine dependence, unspecified, uncomplicated; Z86.59 Personal history of other mental and behavioral disorders; Z91.048 Other nonmedicinal substance allergy status; Z53.29 Procedure and treatment not carried out because of patient's decision for other reasons
CPT/HCPCS: 99284

== ENCOUNTER 2023-03-23 19:30 | Emergency (ER) | payer OTHER ==
[2023-03-23 19:41] VITALS: TEMP 98.1
[2023-03-23] MEDS ORDERED: KETOROLAC 15 MG/ML 1 ML VIAL IM STA (20:11)
[2023-03-23] MEDS ORDERED: DEXAMETHASONE SOD PHOSPHATE 10 MG/ML 1 ML VIAL IM STA (20:11)
[2023-03-23] MEDS ORDERED: DEXAMETHASONE SOD PHOSPHATE 10 MG/ML 1 ML VIAL IVP STA (20:15)
[2023-03-23] MEDS ORDERED: KETOROLAC 15 MG/ML 1 ML VIAL IVP STA (20:15)
--- NOTE | 2023-03-23 21:06 | XR ---
EXAMINATION TYPE: XR lumbar spine 2 or 3V DATE OF EXAM: 03/23/2023 8:44 PM INDICATION: Patient age:Male; 22 years old; Reason for study: back pain; COMPARISON: None TECHNIQUE: Frontal, lateral and coned in L5-S1 lateral views of the spine. FINDINGS: No evidence of any acute osseous pathology. No evidence of loss of vertebral body height i s seen. There is normal alignment of the lumbar vertebral bodies minimal degeneration throughout the spine with early osteophyte formation and facet joint arthropathy. IMPRESSION: 1. No acute fracture. 2. Minimal multilevel disc degeneration.
[2023-03-23 21:19] LABS: Cocaine Screen,Urine Not Detected (NotDetected); Opiate Screen,Urine Not Detected (NotDetected); Phencyclidine Screen,Urine Not Detected (NotDetected); Urn Cannabinoid Scrn Detected (NotDetected)
[2023-03-23 21:20] LABS: Amphetamine Screen,Urine Detected (NotDetected); Barbiturate Screen,Urine Not Detected (NotDetected); Benzodiazepines Screen,Urine Not Detected (NotDetected); Methadone Screen, Urine Not Detected (NotDetected); Oxycodone Screen, Urine Not Detected (NotDetected); Tricyclic Antidepressant,Urine Not Detected (NotDetected)
--- NOTE | 2023-03-23 21:36 | ED ---
General Adult HPI - General Chief complaint: Shortness of Breath Stated complaint: Back pain Time Seen by Provider: 03/23/23 19:55 Source: patient Mode of arrival: ambulatory Limitations: no limitations - History of Present Illness Initial comments: 22-year-old male presenting with chief complaint of lower back pain with radiation down the left leg. Patient was seen here earlier today and left AMA, he presented with an anxiety attack and EMS reports that he had recently used methamphetamines, he left before initiating any workup. At this time he denies any chest pain, shortness of breath, palpitations, weakness, numbness, tingling, abdominal pain, nausea, vomiting. He denies any injury. Patient is tearful while obtaining the history and only answers questions with brief responses. - Related Data Previous Rx's Medication Instructions Recorded Loratadine [Claritin] 10 mg PO DAILY 15 Days tab 08/19/22 [place] Carbonate 300 mg PO BID 30 Days #60 cap 11/27/22 Melatonin 5 mg PO HS 30 Days #30 tab 11/27/22 Paliperidone [Invega] 6 mg PO HS 30 Days #30 tab 11/27/22 Sertraline [Zoloft] 50 mg PO HS 30 Days #30 tab 11/27/22 Allergies Allergy/AdvReac Type Severity Reaction Status Date / Time nickel Allergy Rash/Hives Verified 03/23/23 19:41 Review of Systems ROS Statement: Those systems with pertinent positive or pertinent negative responses have been documented in the HPI. ROS Other: All systems not noted in ROS Statement are negative. Past Medical History Past Medical History: No Reported History History of Any Multi-Drug Resistant Organisms: None Reported Past Surgical History: No Surgical Hx Reported Past Anesthesia/Blood Transfusion Reactions: No Reported Reaction Past Psychological History: Bipolar, Depression Smoking Status: Current every day smoker Past Alcohol Use History: Daily Past Drug Use History: Cocaine, Marijuana, Methamphetamine - Past Family History family Family Medical History: COPD Additional Family Medical History / Comment(s): no reported cancer or heart disease General Exam Limitations: altered mental status General appearance: alert, anxious Head exam: Present: atraumatic, normocephalic, normal inspection Eye exam: Present: normal appearance Neck exam: Present: normal inspection, full ROM Respiratory exam: Present: normal lung sounds bilaterally. Absent: respiratory distress, wheezes, rales, rhonchi, stridor Cardiovascular Exam: Present: regular rate, normal rhythm, normal heart sounds. Absent: systolic murmur, diastolic murmur, rubs, gallop, clicks Back exam: Present: normal inspection Neurological exam: Present: alert, altered Psychiatric exam: Present: anxious Skin exam: Present: warm, dry, intact, normal color. Absent: rash Course Vital Signs 03/23/23 19:35 Temperature 98.1 F Pulse Rate 82 Respiratory 20 Rate Blood Pressure 148/88 O2 Sat by Pulse 100 Oximetry Medical Decision Making - Medical Decision Making Was pt. sent in by a medical professional or institution (, JOSE, ELECTRONIC ENGRAVER, urgent care, hospital, or intermediate...) When possible be specific @ -No Did you speak to anyone other than the patient for history (EMS, parent, family, police, friend...)? What history was obtained from this source @ -No Did you review nursing and triage notes (agree or disagree)? Why? @ -I reviewed and agree with nursing and triage notes Were old charts reviewed (outside hosp., previous admission, EMS record, old EKG, old radiological studies, urgent care reports/EKG's, intermediate records)? Report findings @ -Reviewed note from the patient's visit earlier today Differential Diagnosis (chest pain, altered mental status, abdominal pain women, abdominal pain men, vaginal bleeding, weakness, fever, dyspnea, syncope, headache, dizziness, GI bleed, back pain, seizure, CVA, palpatations, mental health, musculoskeletal)? @ -not applicable EKG interpreted by me (3pts min.). @ -As above X-rays interpreted by me (1pt min.). @ -X-ray shows no acute osseous abnormality CT interpreted by me (1pt min.). @ -None done U/S interpreted by me (1pt. min.). @ -None done What testing was considered but not performed or refused? (CT, X-rays, U/S, labs)? Why? @ -None What meds were considered but not given or refused? Why? @ -None Did you discuss the management of the patient with other professionals (professionals i.e. JOSE Leslie, ELECTRONIC ENGRAVER, lab, RT, psych nurse, social organization professor, manager medical, teacher, commercial loan collection officer, case packer)? Give summary @ -No Was smoking cessation discussed for >3mins.? @ -No Was critical care preformed (if so, how long)? @ -No Were there social determinants of health that impacted care today? How? (Homelessness, low income, unemployed, alcoholism, drug addiction, transportation, low edu. Level, literacy, decrease access to med. care, care home, rehab)? @ -Homelessness Was there de-escalation of care discussed even if they declined (Discuss DNR or withdrawal of care, Hospice)? DNR status @ -No What co-morbidities impacted this encounter? (DM, HTN, Smoking, COPD, CAD, Cancer, CVA, ARF, Chemo, Hep., AIDS, mental health diagnosis, sleep apnea, morbid obesity)? @ -None Was patient admitted / discharged? Hospital course, mention meds given and route, prescriptions, significant lab abnormalities, going to OR and other pertinent info. @ -22-year-old male presenting with chief complaint of back pain with radiation down the leg. Patient appears intoxicated, EMS reports that he has recently taken methamphetamines. On physical examination the patient is anxious and tearful. No red flag symptoms. Patient reports improvement after Toradol and Decadron. Urine drug screen is positive for amphetamines, methamphetamines, and marijuana. X-ray shows no acute process. patient will be given a suggestion for PCP to follow up with. Alternate Motrin and Tylenol as needed for pain control. Follow-up with PCP. Report back to ER with any new or worsening symptoms. Discussed return parameters and answered all questions. Patient conveyed verbal understanding and agreed to the plan. I discussed this case in detail with my attending Dr. Medrano Undiagnosed new problem with uncertain prognosis? @ -No Drug Therapy requiring intensive monitoring for toxicity (Heparin, Nitro, Insulin, Cardizem)? @ -No Were any procedures done? @ -No Diagnosis/symptom? @ -Back pain Acute, or Chronic, or Acute on Chronic? @ -Acute Uncomplicated (without systemic symptoms) or Complicated (systemic symptoms)? @ -Uncomplicated Side effects of treatment? @ -No Exacerbation, Progression, or Severe Exacerbation? @ -No Poses a threat to life or bodily function? How? (Chest pain, [place], [place], pneumonia, PE, COPD, DKA, ARF, appy, cholecystitis, CVA, Diverticulitis, Homicidal, Suicidal, threat to staff... and all critical care pts) @ -No - Lab Data Lab Results 07/17/23 Range/Units 21:01 Urine Opiates Screen Not Detected (NotDetected) Ur Oxycodone Screen Not Detected (NotDetected) Urine Methadone Screen Not Detected (NotDetected) Ur Propoxyphene Screen Not Detected (NotDetected) Ur Barbiturates Screen Not Detected (NotDetected) U Tricyclic Antidepress Not Detected (NotDetected) Ur Phencyclidine Scrn Not Detected (NotDetected) Ur Amphetamines Screen Detected H (NotDetected) U Methamphetamines Scrn Detected H (NotDetected) U Benzodiazepines Scrn Not Detected (NotDetected) Urine Cocaine Screen Not Detected (NotDetected) U Marijuana (THC) Screen Detected H (NotDetected) Disposition Clinical Impression: Back pain, Drug abuse Disposition: HOME SELF-CARE Condition: Fair Instructions (If sedation given, give patient instructions): Acute Low Back Pain (ED), Lumbar Radiculopathy (ED), Polysubstance Abuse (ED) Additional Instructions: Follow-up with PCP, suggestion has been provided. Report back to ER with any new or worsening symptoms. Is patient prescribed a controlled substance at d/c from ED?: No Referrals: None,Stated [Primary Care Provider] - 1-2 days Tucker Castano MD [STAFF PHYSICIAN] - 1-2 days Nasim Adams MD [STAFF PHYSICIAN] - 1-2 days
[2023-03-23] MEDS ORDERED: LIDOCAINE 5% PATCH TOPICAL SCH (22:00)
--- NOTE | 2023-03-23 22:22 | XR ---
EXAM: XR Left Femur, 2 Views CLINICAL HISTORY: ITS.REASON XR Reason: leg pain TECHNIQUE: Frontal and lateral views of the left femur. COMPARISON: No relevant prior studies available. FINDINGS: Bones/joints: Unremarkable. No acute fracture. No dislocation. Soft tissues: Unremarkable. IMPRESSION: Normal left femur x-rays.
[2023-03-23 22:37] VITALS: BP 146/76; PULSE 89; RESP 18
== END 2023-03-23 22:45 | disposition home or self-care (01) ==
LOC: EC 19:30
DX: F15.10 Other stimulant abuse, uncomplicated (principal); F12.10 Cannabis abuse, uncomplicated; M54.50 Low back pain, unspecified; F31.9 Bipolar disorder, unspecified; F17.200 Nicotine dependence, unspecified, uncomplicated; F14.90 Cocaine use, unspecified, uncomplicated; Z79.899 Other long term (current) drug therapy; Z91.048 Other nonmedicinal substance allergy status
CPT/HCPCS: 80306; 72100; 73552; 99285; 96374; 96375; J1100; J1885